=== PATIENT | male | born 1930 ===

== ENCOUNTER 2017-11-20 09:16 | Inpatient (IN) | payer MEDICARE, OTHER ==
[2017-11-20 11:04] LABS: BASO # 0.1 K/uL (0.0-0.2); BASO % 0.9 % (0.0-2.0); EOS # 0.1 K/uL (0.0-0.7); EOS % 0.8 % (0.0-4.0); HEMOGLOBIN 9.6 g/dL (12.0-18.0); LYMPH # 0.7 K/uL (1.0-4.3); LYMPH % 8.4 % (20.0-40.0); MEAN CELL VOLUME 88.1 fl (80.0-94.0); MEAN CORPUSCULAR HEMOGLOBIN 29.2 pg (27.0-31.0); MEAN CORPUSCULAR HGB CONC 33.1 g/dL (33.0-37.0); MONO # 0.6 K/uL (0.0-0.8); MONO % 6.7 % (0.0-10.0); NEUT % 83.2 % (50.0-75.0); PLATELET COUNT 465 K/uL (130-400); RBC 3.28 Mil/uL (4.40-5.90); RED CELL DISTRIBUTION WIDTH 14.1 % (11.5-14.5); WHITE BLOOD COUNT 8.4 K/uL (4.8-10.8)
[2017-11-20 11:11] LABS: INR 1.1 (0.9-1.2); PARTIAL THROMBOPLASTIN TIME 35.4 Seconds (25.6-37.1)
[2017-11-20 11:17] LABS: ALB/GLOB RATIO 0.9 (1.0-2.1); ALBUMIN 3.8 g/dL (3.5-5.0); ALT/SGPT 21 U/L (21-72); AST/SGOT 27 U/L (17-59); BLOOD UREA NITROGEN 31 mg/dl (9-20); CALCIUM 9.6 mg/dL (8.4-10.2); GFR AFRICAN-AMERICAN > 60; GFR NON-AFRICAN AMERICAN 58
--- NOTE | 2017-11-20 11:20 | ED PDOC ---
Lower Extremity Pain/Injury Time Seen by Provider: 11/20/17 09:42 Chief Complaint (Nursing): Lower Extremity Problem/Injury Chief Complaint (Provider): right foot pain History Per: Patient, Making Machine Catcher (Mahogany Velez) History/Exam Limitations: no limitations Onset/Duration Of Symptoms: Days (7+) Current Symptoms Are (Timing): Still Present Severity: Severe Additional Complaint(s): 87yo male presents to ED on recommendation of his foot care team Dr Taylor, concern for worsening RLE pain, possible gangrene foot. Denies fever, weakness. Arrives w RLE foot in bulky dressing. Uses wheelchair. Past Medical History Reviewed: Historical Data, Nursing Documentation, Vital Signs Vital Signs: Last Vital Signs Temp 97 F L 11/20/17 09:31 Pulse 92 H 11/20/17 09:31 Resp 20 11/20/17 09:31 BP 117/67 11/20/17 09:31 Pulse Ox 98 11/20/17 09:31 - Medical History PMH: Arthritis, CHF, Diabetes, HTN, Hypercholesterolemia, Pneumonia Denies: HIV, Chronic Kidney Disease - Surgical History Other surgeries: b/l foot surgery/ L MTA, perforated intestine - Family History Family History: States: Diabetes - Living Arrangements Living Arrangements: With Family - Social History Current smoker - smoking cessation education provided: No - Immunization History Hx Tetanus Toxoid Vaccination: No Hx Influenza Vaccination: Yes Hx Pneumococcal Vaccination: No - Home Medications Home Medications: Ambulatory Orders Medication Instructions Recorded Clopidogrel [Plavix] 75 mg PO DAILY 11/20/17 Ergocalciferol (Vitamin D2) 50,000 unit PO Q7D 11/20/17 [Vitamin D2] Losartan [Cozaar] 50 mg PO DAILY 11/20/17 SITagliptin [Januvia] 50 mg PO DAILY 11/20/17 amLODIPine [Norvasc] 10 mg PO DAILY 11/20/17 traMADol [Ultram] 50 mg PO Q6 PRN 11/20/17 - Allergies Allergies/Adverse Reactions: Allergies Allergy/AdvReac Type Severity Reaction Status Date / Time No Known Allergies Allergy Verified 11/20/17 09:30 Review of Systems ROS Statement: Except As Marked, All Systems Reviewed And Found Negative Constitutional: Negative for: Fever Cardiovascular: Negative for: Chest Pain Respiratory: Negative for: Cough Gastrointestinal: Negative for: Nausea Genitourinary Male: Negative for: Dysuria Musculoskeletal: Positive for: Leg Pain, Foot Pain. Negative for: Neck Pain, Hand Pain Skin: Negative for: Rash, Lesions Neurological: Negative for: Weakness Physical Exam - Reviewed Nursing Documentation Reviewed: Yes Vital Signs Reviewed: Yes - Physical Exam Appears: Positive for: Well, Non-toxic, No Acute Distress Head Exam: Positive for: ATRAUMATIC, NORMAL INSPECTION, NORMOCEPHALIC Skin: Positive for: Normal Color, Warm, DRY Eye Exam: Positive for: EOMI, Normal appearance, PERRL ENT: Positive for: Normal ENT Inspection Neck: Positive for: Normal, Painless ROM Cardiovascular/Chest: Positive for: Regular Rate, Rhythm Respiratory: Positive for: CNT, Normal Breath Sounds Gastrointestinal/Abdominal: Positive for: Soft Back: Positive for: Normal Inspection Extremity: Positive for: Other (L foot TMA; R foot bulky dressing, R foot necrotic black distal margins cool) Neurologic/Psych: Positive for: Alert, Oriented - Laboratory Results Result Diagrams: 11/20/17 11:00 11/20/17 11:00 - ECG O2 Sat by Pulse Oximetry: 98 Medical Decision Making Medical Decision Making: workup for gangrenous foot initiated podiatry consulted XRay and labs obtained EKG performed and interpreted by ct labs clinically unremarkable per podiatry admit for likely OR/TMA PMD Dr Fitzgerald, admit hospitalist Dr Petit aware 1230p Disposition - Clinical Impression Clinical Impression: Gangrene of foot - Patient ED Disposition Is Patient to be Admitted: No Counseled Patient/Family Regarding: Studies Performed, Diagnosis, Need For Followup - Disposition Disposition: Routine/Home Disposition Time: 12:01 Condition: STABLE - Pt Status Changed To: Hospital Disposition Of: Inpatient - Admit Certification Admit to Inpatient:: After my assessment, the patient will require hospitalization for at least two midnights. This is because of the severity of symptoms shown, intensity of services needed, and/or the medical risk in this patient being treated as an outpatient. - POA Present On Arrival: None
[2017-11-20 12:08] LABS: EOSINOPHIL 2 % (0-7); LYMPHOCYTE 4 % (20-50); MONOCYTE 5 % (0-10); NEUTROPHIL 89 % (42-75); TOTAL CELLS COUNTED 100
[2017-11-20 12:10] LABS: PLATELET ESTIMATE INCREASED (NORMAL)
[2017-11-20 12:11] LABS: HYPOCHROMIC SLIGHT
[2017-11-20 12:20] LABS: OVALOCYTES SLIGHT; TEARDROP CELLS SLIGHT
[2017-11-20] MEDS ORDERED: Povidone Iodine Topical 10% Sol ONE (12:22)
--- NOTE | 2017-11-20 12:49 | CP.PCM.CON ---
History of Present Illness - History of Present Illness History of Present Illness: Podiatry Consult note: Dr. Nye 87 year old male patient with PMHx of HTN, HLD, DM was seen and evaluated at bedside in ED s/p right foot partial 1st ray and 2nd digit amputation. Patient is accompanied with his at bedside. Patient is well known to the podiatry service. Patient reports that he was seen by Dr. Nye this morning who sent him to the ED today. Reports that he has a lot of pain on the forefoot. Patient reports that he has been keeping the dressing on as advised. Patient denies of having any recent F/N/V/C/SOB/CP/headache. Denies of any other pedal complains at this time. 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 Retired; Denies hx of tobacco, ETOH and illicit drugs use Review of Systems - Constitutional Constitutional: As Per HPI Past Patient History - Infectious Disease Hx of Infectious Diseases: None - Tetanus Immunizations Tetanus Immunization: Unknown - Past Medical History & Family History Past Medical History?: Yes - Past Social History Smoking Status: Former Smoker - CARDIAC Hx Congestive Heart Failure: Yes Hx Hypercholesterolemia: Yes Hx Hypertension: Yes - PULMONARY Hx Pneumonia: Yes - NEUROLOGICAL Hx Neurological Disorder: No - HEENT Hx HEENT Problems: No - RENAL Hx Chronic Kidney Disease: No - ENDOCRINE/METABOLIC Hx Diabetes Mellitus Type 2: Yes - HEMATOLOGICAL/ONCOLOGICAL Hx Human Immunodeficiency Virus (HIV): No - INTEGUMENTARY Hx Dermatological Problems: No - MUSCULOSKELETAL/RHEUMATOLOGICAL Hx Arthritis: Yes - GASTROINTESTINAL Hx Gastrointestinal Disorders: Yes Other/Comment: perforated viscus s/p exploratory lap with small bowel resection 10/28/14 - GENITOURINARY/GYNECOLOGICAL Hx Genitourinary Disorders: No - PSYCHIATRIC Hx Psychophysiologic Disorder: No Hx Substance Use: No - SURGICAL HISTORY Hx Surgeries: Yes Hx Amputation: Yes (TMA left foot) Other/Comment: s/p exploratory lap small bowel resection - ANESTHESIA Hx Anesthesia: Yes Hx Anesthesia Reactions: No Hx Malignant Hyperthermia: No Meds Allergies/Adverse Reactions: Allergies Allergy/AdvReac Type Severity Reaction Status Date / Time No Known Allergies Allergy Verified 11/20/17 09:30 Physical Exam - Constitutional Appears: Well, Non-toxic, No Acute Distress - Extremities Exam Additional comments: Right LE focused exam Dressing appears clean/dry/intact with no strikethrough noted. Vasc: DP/PT pulses non palpable. Temp gradient cool to cool from proximal to distal, Cap refill time to the digits as well as plantar forefoot and midfoot appears sluggish and delayed > 3 sec. Mild forefoot pedal edema noted accompanied by minimal hyperemic erythema extending to the midfoot Derm: Incision noted to distal medial aspect of right foot shows dehiscence diffusely with sutures intact on the proximal end, maceration surrounding the surgical site with hyperpigmented 3rd digit, Wound base appears full thickness fibrotic with necrotic changes, No fluctuance, no purulence, mild serous drainage, faint malodor noted Neuro: Protective sensation grossly diminished Ortho: moderate tenderness to palpation along surgical site. s/p right hallux amputation with metatarsal head resection, and partial 2nd digit amputation - Neurological Exam Neurological exam: Alert, Oriented x3 - Psychiatric Exam Psychiatric exam: Normal Affect, Normal Mood Results - Vital Signs Recent Vital Signs: Last Vital Signs Temp 97 F L 11/20/17 09:31 Pulse 92 H 11/20/17 09:31 Resp 20 11/20/17 09:31 BP 117/67 11/20/17 09:31 Pulse Ox 98 11/20/17 11:21 - Labs Result Diagrams: 11/20/17 11:00 11/20/17 11:00 Labs: Laboratory Results - last 24 hr 11/20/17 11/20/17 11/20/17 11:00 11:00 11:00 WBC 8.4 RBC 3.28 L Hgb 9.6 L Hct 28.9 L MCV 88.1 D MCH 29.2 MCHC 33.1 RDW 14.1 Plt Count 465 H MPV 8.0 Neut % (Auto) 83.2 H Lymph % (Auto) 8.4 L Mathews % (Auto) 6.7 Eos % (Auto) 0.8 Baso % (Auto) 0.9 Neut # (Auto) 7.0 Lymph # (Auto) 0.7 L Mathews # (Auto) 0.6 Eos # (Auto) 0.1 Baso # (Auto) 0.1 Neutrophils % (Manual) 89 H Lymphocytes % (Manual) 4 L Monocytes % (Manual) 5 Eosinophils % (Manual) 2 Platelet Estimate Increased H Hypochromasia (manual) Slight Tear Drop Cells Slight Ovalocytes Slight PT 12.0 INR 1.1 APTT 35.4 Sodium 141 Potassium 5.2 H Chloride 103 Carbon Dioxide 24 Anion Gap 19 BUN 31 H Creatinine 1.2 Est GFR ( Amer) > 60 Est GFR (Non-Af Amer) 58 Random Glucose 157 H Calcium 9.6 Total Bilirubin 0.4 AST 27 ALT 21 Alkaline Phosphatase 104 Troponin I < 0.0120 Total Protein 8.1 Albumin 3.8 Globulin 4.3 H Albumin/Globulin Ratio 0.9 L Assessment & Plan - Assessment and Plan (Free Text) Assessment: 87 year old male with HTN, DM, HLD was evaluated for right forefoot gangrenous changes Plan: Patient seen and evaluated Discussed plan with attending Dr. Nye Labs, vitals and charts reviewed - afebrile WBC @ 8.4 X-rays of the right foot ordered/reviewed - no soft tissue emphysema, no acute changes showing OM Wound cleaned with saline and dressing applied using betadine, 4x4 and Kerlix Patient will be admitted to the floors - Podiatry plans for Transmetatarsal amputation at this time Vascular consult - Dr. Jiménez ID consult - Dr. Buck Post op shoe ordered - Remain weightbearing to the heel in a surgical shoe Multipodus boots - to be worn at all times while in bed Thank you for the podiatry consult and allowing to take part in patient care Podiatry will follow patient while in-house - Date & Time Date: 11/20/17 Time: 13:04
--- NOTE | 2017-11-20 13:16 | CP.PCM.CON ---
History of Present Illness - History of Present Illness History of Present Illness: 87 year old male patient with PMHx of HTN, HLD, DM was seen and evaluated at bedside in ED s/p right foot partial 1st ray and 2nd digit amputation. Referred for ID eval for antibiotic management Reports that he has a lot of pain on the forefoot. Patient reports that he has been keeping the dressing on as advised. Patient denies of having any recent F/N /V/C/SOB/CP/headache. Denies of any other pedal complains at this time. 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 Retired; Denies hx of tobacco, ETOH and illicit drugs use Review of Systems - Review of Systems All systems: reviewed and no additional remarkable complaints except Past Patient History - Infectious Disease Hx of Infectious Diseases: None - Tetanus Immunizations Tetanus Immunization: Unknown - Past Medical History & Family History Past Medical History?: Yes - Past Social History Smoking Status: Former Smoker - CARDIAC Hx Congestive Heart Failure: Yes Hx Hypercholesterolemia: Yes Hx Hypertension: Yes - PULMONARY Hx Pneumonia: Yes - NEUROLOGICAL Hx Neurological Disorder: No - HEENT Hx HEENT Problems: No - RENAL Hx Chronic Kidney Disease: No - ENDOCRINE/METABOLIC Hx Diabetes Mellitus Type 2: Yes - HEMATOLOGICAL/ONCOLOGICAL Hx Human Immunodeficiency Virus (HIV): No - INTEGUMENTARY Hx Dermatological Problems: No - MUSCULOSKELETAL/RHEUMATOLOGICAL Hx Arthritis: Yes - GASTROINTESTINAL Hx Gastrointestinal Disorders: Yes Other/Comment: perforated viscus s/p exploratory lap with small bowel resection 10/28/14 - GENITOURINARY/GYNECOLOGICAL Hx Genitourinary Disorders: No - PSYCHIATRIC Hx Psychophysiologic Disorder: No Hx Substance Use: No - SURGICAL HISTORY Hx Surgeries: Yes Hx Amputation: Yes (TMA left foot) Other/Comment: s/p exploratory lap small bowel resection - ANESTHESIA Hx Anesthesia: Yes Hx Anesthesia Reactions: No Hx Malignant Hyperthermia: No Meds Allergies/Adverse Reactions: Allergies Allergy/AdvReac Type Severity Reaction Status Date / Time No Known Allergies Allergy Verified 11/20/17 09:30 Physical Exam - Constitutional Appears: Chronically Ill - Head Exam Head Exam: ATRAUMATIC, NORMOCEPHALIC - Eye Exam Eye Exam: PERRL - ENT Exam ENT Exam: Mucous Membranes Dry, Normal External Ear Exam - Neck Exam Neck exam: Negative for: Lymphadenopathy - Respiratory Exam Respiratory Exam: Decreased Breath Sounds - Cardiovascular Exam Cardiovascular Exam: REGULAR RHYTHM - GI/Abdominal Exam GI & Abdominal Exam: Diminished Bowel Sounds, Soft. absent: Tenderness - Rectal Exam Rectal Exam: Deferred - Exam Exam: NORMAL INSPECTION - Extremities Exam Extremities exam: Negative for: pedal edema Additional comments: right 1st and second amp site with dehissence and necrosis some malor from plantar aspect weak pulse - Back Exam Back exam: absent: CVA tenderness (L), CVA tenderness (R) - Neurological Exam Neurological exam: Alert, CN II-XII Intact, Oriented x3, Reflexes Normal - Psychiatric Exam Psychiatric exam: Normal Mood - Skin Skin Exam: Dry Results - Vital Signs Recent Vital Signs: Last Vital Signs Temp 97 F L 11/20/17 09:31 Pulse 92 H 11/20/17 09:31 Resp 20 11/20/17 09:31 BP 117/67 11/20/17 09:31 Pulse Ox 98 11/20/17 13:14 - Labs Result Diagrams: 11/21/17 06:00 11/21/17 06:00 Labs: Laboratory Results - last 24 hr 11/20/17 11/20/17 11/20/17 11:00 11:00 11:00 WBC 8.4 RBC 3.28 L Hgb 9.6 L Hct 28.9 L MCV 88.1 D MCH 29.2 MCHC 33.1 RDW 14.1 Plt Count 465 H MPV 8.0 Neut % (Auto) 83.2 H Lymph % (Auto) 8.4 L Lamar % (Auto) 6.7 Eos % (Auto) 0.8 Baso % (Auto) 0.9 Neut # (Auto) 7.0 Lymph # (Auto) 0.7 L Lamar # (Auto) 0.6 Eos # (Auto) 0.1 Baso # (Auto) 0.1 Neutrophils % (Manual) 89 H Lymphocytes % (Manual) 4 L Monocytes % (Manual) 5 Eosinophils % (Manual) 2 Platelet Estimate Increased H Hypochromasia (manual) Slight Tear Drop Cells Slight Ovalocytes Slight PT 12.0 INR 1.1 APTT 35.4 Sodium 141 Potassium 5.2 H Chloride 103 Carbon Dioxide 24 Anion Gap 19 BUN 31 H Creatinine 1.2 Est GFR ( Amer) > 60 Est GFR (Non-Af Amer) 58 Random Glucose 157 H Calcium 9.6 Total Bilirubin 0.4 AST 27 ALT 21 Alkaline Phosphatase 104 Troponin I < 0.0120 Total Protein 8.1 Albumin 3.8 Globulin 4.3 H Albumin/Globulin Ratio 0.9 L Assessment & Plan (1) Gangrene of foot Status: Acute (2) PVD (peripheral vascular disease) with claudication Status: Acute (3) KENNY (acute kidney injury) Status: Acute (4) Chronic osteomyelitis of right foot Status: Acute - Assessment and Plan (Free Text) Assessment: gangrene of right foot s/p amp of first 2 digits severe PVD cont iv rx vascular eval, antibiotics options limited
--- NOTE | 2017-11-20 13:27 | CP.PCM.HP ---
History of Present Illness - History of Present Illness History of Present Illness: cc: foot pain 87 M PMH HTN, HLD, DM, b/l toe amputations, presented to the ED from Dr. Taylor's office for mod to severe worsening sharp R foot pain. Podiatry to take patient for transmetatarsal amputation for possible gangrenous changes. Vascular and ID consults obtained per Podiatry. Pt mildly hyperkalemic, and azotemic. Will hydrate patient gently. HD stable NAD. ROS: per HPI all other systems reviewed and neg PMD: Dr. 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 Retired; Denies hx of tobacco, ETOH and illicit drugs use Medications: Unknown dose for Losartan, plavix 75mg po daily, medications for HLD and diabetes (patient and could not remember names) Allergies: NKDA Present on Admission - Present on Admission Any Indicators Present on Admission: No Past Patient History - Infectious Disease Hx of Infectious Diseases: None - Tetanus Immunizations Tetanus Immunization: Unknown - Past Medical History & Family History Past Medical History?: Yes - Past Social History Smoking Status: Former Smoker - CARDIAC Hx Congestive Heart Failure: Yes Hx Hypercholesterolemia: Yes Hx Hypertension: Yes - PULMONARY Hx Pneumonia: Yes - NEUROLOGICAL Hx Neurological Disorder: No - HEENT Hx HEENT Problems: No - RENAL Hx Chronic Kidney Disease: No - ENDOCRINE/METABOLIC Hx Diabetes Mellitus Type 2: Yes - HEMATOLOGICAL/ONCOLOGICAL Hx Human Immunodeficiency Virus (HIV): No - INTEGUMENTARY Hx Dermatological Problems: No - MUSCULOSKELETAL/RHEUMATOLOGICAL Hx Arthritis: Yes - GASTROINTESTINAL Hx Gastrointestinal Disorders: Yes Other/Comment: perforated viscus s/p exploratory lap with small bowel resection 10/28/14 - GENITOURINARY/GYNECOLOGICAL Hx Genitourinary Disorders: No - PSYCHIATRIC Hx Psychophysiologic Disorder: No Hx Substance Use: No - SURGICAL HISTORY Hx Surgeries: Yes Hx Amputation: Yes (TMA left foot) Other/Comment: s/p exploratory lap small bowel resection - ANESTHESIA Hx Anesthesia: Yes Hx Anesthesia Reactions: No Hx Malignant Hyperthermia: No Meds Allergies/Adverse Reactions: Allergies Allergy/AdvReac Type Severity Reaction Status Date / Time No Known Allergies Allergy Verified 11/20/17 09:30 Physical Exam - Constitutional Additional comments: Vitals Reviewed GEN: WDWN, alert, cooperative HEENT: NCAT, PERRL, EOMI HEART: RRR, +S1S2, NO MRG LUNG: CTAB, NO WRR ABD: soft, NT, ND, No HSM, No masses EXT: normal pedal pulses, normal capillary refill, bandages intact R foot NEURO: awake, alert, no focal deficits SKIN: warm, dry PSYCH: normal mood, normal affect Results - Vital Signs Recent Vital Signs: Last Vital Signs Temp 97 F L 11/20/17 09:31 Pulse 92 H 11/20/17 09:31 Resp 20 11/20/17 09:31 BP 117/67 11/20/17 09:31 Pulse Ox 98 11/20/17 13:16 - Labs Result Diagrams: 11/20/17 11:00 11/20/17 11:00 Labs: Laboratory Results - last 24 hr 11/20/17 11/20/17 11/20/17 11:00 11:00 11:00 WBC 8.4 RBC 3.28 L Hgb 9.6 L Hct 28.9 L MCV 88.1 D MCH 29.2 MCHC 33.1 RDW 14.1 Plt Count 465 H MPV 8.0 Neut % (Auto) 83.2 H Lymph % (Auto) 8.4 L Forest % (Auto) 6.7 Eos % (Auto) 0.8 Baso % (Auto) 0.9 Neut # (Auto) 7.0 Lymph # (Auto) 0.7 L Forest # (Auto) 0.6 Eos # (Auto) 0.1 Baso # (Auto) 0.1 Neutrophils % (Manual) 89 H Lymphocytes % (Manual) 4 L Monocytes % (Manual) 5 Eosinophils % (Manual) 2 Platelet Estimate Increased H Hypochromasia (manual) Slight Tear Drop Cells Slight Ovalocytes Slight PT 12.0 INR 1.1 APTT 35.4 Sodium 141 Potassium 5.2 H Chloride 103 Carbon Dioxide 24 Anion Gap 19 BUN 31 H Creatinine 1.2 Est GFR ( Amer) > 60 Est GFR (Non-Af Amer) 58 Random Glucose 157 H Calcium 9.6 Total Bilirubin 0.4 AST 27 ALT 21 Alkaline Phosphatase 104 Troponin I < 0.0120 Total Protein 8.1 Albumin 3.8 Globulin 4.3 H Albumin/Globulin Ratio 0.9 L Assessment & Plan - Assessment and Plan (Free Text) Plan: 87 M PMH HTN, HLD, DM, b/l toe amputations, presented to the ED from Dr. Taylor's office for mod to severe worsening sharp R foot pain. Podiatry to take patient for transmetatarsal amputation for possible gangrenous changes. Vascular and ID consults obtained per Podiatry. Pt mildly hyperkalemic, and azotemic. Will hydrate patient gently. HD stable NAD. Gangrenous Foot? - Podiatry consult with Dr. Taylor, who is patient's primary Presidential Support Specialist - pain control - ID consult Dr. Buck per Podiatry request, appreciated - Vascular consult Dr. Jiménez per Podiatry request, appreciated - holding patient's Plavix - NPO after MN - maint fluids with NS as patient is dry. Will adjust to D5 1/2 NS + 20 KCl once azotemia resolves. Hyperkalemia - 5.2, will hydrate as patient is Azotemic - recheck in AM Azotemia, dehydration - hydrate gently with NS - monitor BUN and renal fxn Hypertension - continue Amlodipine and Losartan DM - continue Januvia, accuchecks and ISS
[2017-11-20] MEDS ORDERED: Sodium Chloride 0.9% 1,000 ML IV SCH (13:30)
[2017-11-20] MEDS: Ergocalciferol 50,000 Intl Units Cap PO SCH (15:22)
[2017-11-20 15:56] LABS: SQUAMOUS EPITHIAL < 1 /hpf (0-5); URINE BILIRUBIN NEGATIVE (NEGATIVE); URINE BLOOD NEGATIVE (NEGATIVE); URINE CLARITY CLEAR (Clear); URINE COLOR YELLOW (YELLOW); URINE GLUCOSE (UA) NEG (Normal); URINE LEUKOCYTE ESTERASE NEG Leu/uL (Negative); URINE PROTEIN 30 mg/dL (NEGATIVE); URINE UROBILINOGEN 0.2-1.0 mg/dL (0.2-1.0)
--- NOTE | 2017-11-20 16:36 | RAD ---
PROCEDURE: Right foot dated 11/20/2017. HISTORY: Right foot pain. COMPARISON: No prior study available for comparison. FINDINGS: BONES: Patient is status post amputation at the level of the mid-proximal right 1st metatarsal and distal on phalanges. There also has been amputation of the entire right 2nd toe as well. The bone margins are sharp with no definitive evidence to suggest on destructive changes however the possibility of early osteomyelitis cannot be completely excluded and if there is any concern recommend followup MRI. The soft tissues of the stump appear grossly unremarkable without evidence of subcutaneous emphysema. The remaining osseous structures also appear intact so far as can be seen. Vascular calcifications present. JOINTS: As above. SOFT TISSUES: As above. OTHER FINDINGS: None. IMPRESSION: Amputation changes of the 1st ray at the level of the mid/proximal right 1st metatarsal. Also has been amputation of the entire the 2nd toe. No evidence to suggest osteomyelitis however if there is any concern for early osteomyelitis which cannot be excluded on this exam, recommend followup MRI. The soft tissues of the stump appear unremarkable without evidence of subcutaneous air Vascular calcifications are present.
--- NOTE | 2017-11-20 20:00 | CARD ---
APPROVED REPORT EKG Measurement Heart [id number] <Conclusion> Normal sinus rhythm Normal ECG
[2017-11-20] MEDS ORDERED: Sodium Chloride 0.45% 1,000 ML IV SCH (22:00)
[2017-11-20] MEDS: Insulin Lispro (humaLOG) 100 Units/ml Inj SC SCH (22:47)
[2017-11-21] MEDS: Piperacillin/Tazobact 3.375 GM in Sodium Chloride 0.9% 100 ML IVPB SCH ×4 (00:04→16:42)
[2017-11-21] MEDS: Insulin Lispro (humaLOG) 100 Units/ml Inj SC SCH ×4 (06:33→22:30)
[2017-11-21 06:41] LABS: HEMOGLOBIN 10.2 g/dL (12.0-18.0); MEAN CELL VOLUME 88.4 fl (80.0-94.0); MEAN CORPUSCULAR HEMOGLOBIN 28.8 pg (27.0-31.0); MEAN CORPUSCULAR HGB CONC 32.6 g/dL (33.0-37.0); RBC 3.55 Mil/uL (4.40-5.90); RED CELL DISTRIBUTION WIDTH 14.6 % (11.5-14.5); WHITE BLOOD COUNT 8.9 K/uL (4.8-10.8)
[2017-11-21 07:11] LABS: BLOOD UREA NITROGEN 23 mg/dl (9-20); CALCIUM 9.4 mg/dL (8.4-10.2); GFR AFRICAN-AMERICAN > 60; GFR NON-AFRICAN AMERICAN > 60
--- NOTE | 2017-11-21 08:00 | CP.PCM.PN ---
Subjective - Date & Time of Evaluation Date of Evaluation: 11/21/17 Time of Evaluation: 08:00 - Subjective Subjective: Podiatry Progress note: Dr. Nye 87 year old male patient with PMHx of HTN, HLD, DM was seen and evaluated for right forefoot gangrene. Patient is accompanied with his at bedside. Patient is AAOx3 and is in NAD. Reports of pain when someone touches the foot. Reports that he has not eaten anything since yesterday and is hungry. Denies of having any recent F/N/V/C/SOB/CP/headache. No new pedal complains at this time. Objective - Vital Signs/Intake and Output Vital Signs (last 24 hours): Temp Pulse Resp BP Pulse Ox 98.6 F 100 H 18 145/70 97 11/21/17 00:32 11/21/17 00:32 11/21/17 00:32 11/21/17 00:32 11/21/17 00:32 - Medications Medications: Current Medications Amlodipine Besylate (Norvasc) 10 mg PO DAILY [facility] Ergocalciferol (Drisdol 50,000 Intl Units Cap) 1 cap PO Q7D [facility] Last Admin: 11/20/17 15:22 Dose: 1 cap Vancomycin HCl 1 gm/ Sodium (Chloride) 250 mls @ 166.667 mls/hr IVPB Q12H [facility] PRN Reason: Protocol Last Admin: 11/21/17 01:43 Dose: 166.667 mls/hr Piperacillin Sod/Tazobactam (Sod 3.375 gm/ Sodium Chloride) 100 mls @ 100 mls/ hr IVPB Q8 [facility] PRN Reason: Protocol Last Admin: 11/21/17 00:04 Dose: 100 mls/hr Sodium Chloride (Sodium Chloride 0.45%) 1,000 mls @ 75 mls/hr IV .[id number] [facility] Stop: 11/21/17 11:19 Last Admin: 11/20/17 22:04 Dose: 75 mls/hr Insulin Human Lispro (Humalog) 0 units SC ACHS [facility] PRN Reason: Protocol Last Admin: 11/21/17 06:33 Dose: Not Given Losartan Potassium (Cozaar) 50 mg PO DAILY [facility] Sitagliptin Phosphate (Januvia) 50 mg PO DAILY [facility] Tramadol HCl (Ultram) 50 mg PO Q6 PRN PRN Reason: Pain, severe (8-10) - Labs Labs: 11/21/17 06:00 11/21/17 06:00 PT 12.0 Seconds (9.8-13.1) 11/20/17 11:00 INR 1.1 (0.9-1.2) 11/20/17 11:00 APTT 35.4 Seconds (25.6-37.1) 11/20/17 11:00 - Constitutional Appears: Well, Non-toxic, No Acute Distress - Extremities Exam Additional comments: Right LE focused exam No dressing present at the time of the visit Vasc: DP/PT pulses non palpable. Temp gradient cool to cool from proximal to distal, Cap refill time to the digits as well as plantar forefoot and midfoot appears sluggish and delayed > 3 sec. Mild forefoot pedal edema noted accompanied by minimal hyperemic erythema extending to the midfoot Derm: Previous surgical site noted to distal medial aspect of right foot which shows full thickness necrosis extending to 3rd digit with hyperpigmented changes , surgical sutures observed at the proximal end of the wound, Wound base appears fully necrotic and dry with no balaji wound maceration, No fluctuance, no purulence, no active drainage, faint malodor noted Neuro: Protective sensation grossly diminished Ortho: moderate tenderness to palpation along surgical site. 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 Nye Labs, vitals and charts reviewed - afebrile WBC @ 8.9 X-rays of the right foot ordered/reviewed - no soft tissue emphysema, no acute changes showing OM Wound cleaned with saline and dressing applied using betadine, 4x4 and Kerlix Vascular consult - Dr. Jiménez; recs appreciated - CTA today Podiatry plans Transmetatarsal amputation tentatively Monday Morning - will follow Vascular recs ID consult - Dr. Buck; recs appreciated - Continue IV zosyn and Vanco Wound cx - pending Post op shoe ordered - Remain weightbearing to the heel in a surgical shoe Multipodus boots - to be worn at all times while in bed Podiatry will follow patient while in-house
--- NOTE | 2017-11-21 10:27 | CP.PCM.CON ---
History of Present Illness - History of Present Illness History of Present Illness: Consultation for evaluation of PVOD HPI: 87 year old male with hx of HTN, DM, PVD s/p recent revascularizatoin done in by presents with worsening gangrene and pain of RLE. According to patient his symptoms started about a month back when he started having discomfort and paresthesias in his lower extremity. Review of Systems - Review of Systems Systems not reviewed;Unavailable: Acuity of Condition - Constitutional Constitutional: As Per HPI - EENT Eyes: As Per HPI Ears: As Per HPI Nose/Mouth/Throat: As Per HPI - Cardiovascular Cardiovascular: As Per HPI - Respiratory Respiratory: As Per HPI - Gastrointestinal Gastrointestinal: As Per HPI - Genitourinary Genitourinary: As Per HPI - Reproductive: Male Reproductive:Male: As Per HPI - Musculoskeletal Musculoskeletal: As Per HPI - Integumentary Integumentary: As Per HPI - Neurological Neurological: As Per HPI - Psychiatric Psychiatric: As Per HPI - Endocrine Endocrine: As Per HPI - Hematologic/Lymphatic Hematologic: As Per HPI Past Patient History - Infectious Disease Hx of Infectious Diseases: None - Tetanus Immunizations Tetanus Immunization: Unknown - Past Medical History & Family History Past Medical History?: Yes - Past Social History Smoking Status: Former Smoker - CARDIAC Hx Cardiac Disorders: Yes Hx Congestive Heart Failure: Yes Hx Hypercholesterolemia: Yes Hx Hypertension: Yes - PULMONARY Hx Respiratory Disorders: Yes Hx Pneumonia: Yes - NEUROLOGICAL Hx Neurological Disorder: No - HEENT Hx HEENT Problems: No - RENAL Hx Chronic Kidney Disease: No - ENDOCRINE/METABOLIC Hx Endocrine Disorders: Yes Hx Diabetes Mellitus Type 2: Yes - HEMATOLOGICAL/ONCOLOGICAL Hx Blood Disorders: No Hx Human Immunodeficiency Virus (HIV): No - INTEGUMENTARY Hx Dermatological Problems: No - MUSCULOSKELETAL/RHEUMATOLOGICAL Hx Musculoskeletal Disorders: Yes Hx Arthritis: Yes Hx Falls: No - GASTROINTESTINAL Hx Gastrointestinal Disorders: Yes Other/Comment: perforated viscus s/p exploratory lap with small bowel resection 10/28/14 - GENITOURINARY/GYNECOLOGICAL Hx Genitourinary Disorders: No - PSYCHIATRIC Hx Psychophysiologic Disorder: No - SURGICAL HISTORY Hx Surgeries: Yes Hx Amputation: Yes (TMA left foot) Other/Comment: s/p exploratory lap small bowel resection - ANESTHESIA Hx Anesthesia: Yes Hx Anesthesia Reactions: No Hx Malignant Hyperthermia: No Meds Allergies/Adverse Reactions: Allergies Allergy/AdvReac Type Severity Reaction Status Date / Time No Known Allergies Allergy Verified 11/20/17 09:30 - Medications Medications: Current Medications Amlodipine Besylate (Norvasc) 10 mg PO DAILY [facility] Last Admin: 11/21/17 08:51 Dose: Not Given Ergocalciferol (Drisdol 50,000 Intl Units Cap) 1 cap PO Q7D [facility] Last Admin: 11/20/17 15:22 Dose: 1 cap Vancomycin HCl 1 gm/ Sodium (Chloride) 250 mls @ 166.667 mls/hr IVPB Q12H [facility] PRN Reason: Protocol Last Admin: 11/21/17 01:43 Dose: 166.667 mls/hr Piperacillin Sod/Tazobactam (Sod 3.375 gm/ Sodium Chloride) 100 mls @ 100 mls/ hr IVPB Q8 [facility] PRN Reason: Protocol Last Admin: 11/21/17 08:55 Dose: 100 mls/hr Sodium Chloride (Sodium Chloride 0.45%) 1,000 mls @ 75 mls/hr IV .[id number] [facility] Stop: 11/21/17 11:19 Last Admin: 11/20/17 22:04 Dose: 75 mls/hr Insulin Human Lispro (Humalog) 0 units SC ACHS [facility] PRN Reason: Protocol Last Admin: 11/21/17 06:33 Dose: Not Given Losartan Potassium (Cozaar) 50 mg PO DAILY [facility] Last Admin: 11/21/17 08:51 Dose: Not Given Sitagliptin Phosphate (Januvia) 50 mg PO DAILY [facility] Last Admin: 11/21/17 08:51 Dose: Not Given Tramadol HCl (Ultram) 50 mg PO Q6 PRN PRN Reason: Pain, severe (8-10) Physical Exam - Constitutional Appears: Well - Head Exam Head Exam: ATRAUMATIC, NORMAL INSPECTION, NORMOCEPHALIC - Eye Exam Eye Exam: EOMI, Normal appearance, PERRL Pupil Exam: NORMAL ACCOMODATION, PERRL - ENT Exam ENT Exam: Mucous Membranes Moist, Normal Exam - Neck Exam Neck exam: Positive for: Normal Inspection - Respiratory Exam Respiratory Exam: Clear to Auscultation Bilateral, NORMAL BREATHING PATTERN - Cardiovascular Exam Cardiovascular Exam: REGULAR RHYTHM - GI/Abdominal Exam GI & Abdominal Exam: Normal Bowel Sounds, Soft. absent: Tenderness - Extremities Exam Extremities exam: Positive for: normal inspection - Back Exam Back exam: NORMAL INSPECTION - Neurological Exam Neurological exam: Alert, CN II-XII Intact, Normal Gait, Oriented x3, Reflexes Normal - Psychiatric Exam Psychiatric exam: Normal Affect, Normal Mood - Skin Skin Exam: Dry, Intact, Normal Color, Warm Results - Vital Signs Recent Vital Signs: Last Vital Signs Temp 98.2 F 11/21/17 08:34 Pulse 93 H 11/21/17 08:34 Resp 20 11/21/17 08:34 BP 126/66 11/21/17 08:34 Pulse Ox 98 11/21/17 08:34 - Labs Result Diagrams: 11/22/17 08:12 11/23/17 06:05 Labs: Laboratory Results - last 24 hr 11/20/17 11/20/17 11/20/17 11:00 11:00 11:00 WBC 8.4 RBC 3.28 L Hgb 9.6 L Hct 28.9 L MCV 88.1 D MCH 29.2 MCHC 33.1 RDW 14.1 Plt Count 465 H MPV 8.0 Neut % (Auto) 83.2 H Lymph % (Auto) 8.4 L [place] % (Auto) 6.7 Eos % (Auto) 0.8 Baso % (Auto) 0.9 Neut # (Auto) 7.0 Lymph # (Auto) 0.7 L [place] # (Auto) 0.6 Eos # (Auto) 0.1 Baso # (Auto) 0.1 Neutrophils % (Manual) 89 H Lymphocytes % (Manual) 4 L Monocytes % (Manual) 5 Eosinophils % (Manual) 2 Platelet Estimate Increased H Hypochromasia (manual) Slight Tear Drop Cells Slight Ovalocytes Slight PT 12.0 INR 1.1 APTT 35.4 Sodium 141 Potassium 5.2 H Chloride 103 Carbon Dioxide 24 Anion Gap 19 BUN 31 H Creatinine 1.2 Est GFR ( Amer) > 60 Est GFR (Non-Af Amer) 58 POC Glucose (mg/dL) Random Glucose 157 H Calcium 9.6 Total Bilirubin 0.4 AST 27 ALT 21 Alkaline Phosphatase 104 Troponin I < 0.0120 Total Protein 8.1 Albumin 3.8 Globulin 4.3 H Albumin/Globulin Ratio 0.9 L Procalcitonin Urine Color Urine Clarity Urine pH Ur Specific [place] Urine Protein Urine Glucose (UA) Urine Ketones Urine Blood Urine Nitrate Urine Bilirubin Urine Urobilinogen Ur Leukocyte Esterase Urine RBC (Auto) Urine Microscopic WBC Ur Squamous Epith Cells 11/20/17 11/20/17 11/20/17 15:00 15:30 22:29 WBC RBC Hgb Hct MCV MCH MCHC RDW Plt Count MPV Neut % (Auto) Lymph % (Auto) [place] % (Auto) Eos % (Auto) Baso % (Auto) Neut # (Auto) Lymph # (Auto) [place] # (Auto) Eos # (Auto) Baso # (Auto) Neutrophils % (Manual) Lymphocytes % (Manual) Monocytes % (Manual) Eosinophils % (Manual) Platelet Estimate Hypochromasia (manual) Tear Drop Cells Ovalocytes PT INR APTT Sodium Potassium Chloride Carbon Dioxide Anion Gap BUN Creatinine Est GFR ( Amer) Est GFR (Non-Af Amer) POC Glucose (mg/dL) 112 H Random Glucose Calcium Total Bilirubin AST ALT Alkaline Phosphatase Troponin I Total Protein Albumin Globulin Albumin/Globulin Ratio Procalcitonin < 0.05 L Urine Color Yellow Urine Clarity Clear Urine pH 5.0 Ur Specific [place] 1.014 Urine Protein 30 Urine Glucose (UA) Neg Urine Ketones Negative Urine Blood Negative Urine Nitrate Negative Urine Bilirubin Negative Urine Urobilinogen 0.2-1.0 Ur Leukocyte Esterase Neg Urine RBC (Auto) 2 Urine Microscopic WBC < 1 Ur Squamous Epith Cells < 1 11/21/17 11/21/17 11/21/17 05:14 06:00 06:00 WBC 8.9 RBC 3.55 L Hgb 10.2 L Hct 31.4 L MCV 88.4 MCH 28.8 MCHC 32.6 L RDW 14.6 H Plt Count 456 H MPV Neut % (Auto) Lymph % (Auto) [place] % (Auto) Eos % (Auto) Baso % (Auto) Neut # (Auto) Lymph # (Auto) [place] # (Auto) Eos # (Auto) Baso # (Auto) Neutrophils % (Manual) Lymphocytes % (Manual) Monocytes % (Manual) Eosinophils % (Manual) Platelet Estimate Hypochromasia (manual) Tear Drop Cells Ovalocytes PT INR APTT Sodium 140 Potassium 4.7 Chloride 106 Carbon Dioxide 19 L Anion Gap 20 BUN 23 H Creatinine 1.0 Est GFR ( Amer) > 60 Est GFR (Non-Af Amer) > 60 POC Glucose (mg/dL) 92 Random Glucose 101 Calcium 9.4 Total Bilirubin AST ALT Alkaline Phosphatase Troponin I Total Protein Albumin Globulin Albumin/Globulin Ratio Procalcitonin Urine Color Urine Clarity Urine pH Ur Specific [place] Urine Protein Urine Glucose (UA) Urine Ketones Urine Blood Urine Nitrate Urine Bilirubin Urine Urobilinogen Ur Leukocyte Esterase Urine RBC (Auto) Urine Microscopic WBC Ur Squamous Epith Cells Assessment & Plan (1) Gangrene of foot Assessment and Plan: CT Angio LE with runoff asa, plavix statins acei cilostazol Status: Acute (2) PVD (peripheral vascular disease) with claudication Assessment and Plan: depending on results of CT Angio consider further evaluation and treatment Status: Acute (3) Gangrene of toe of right foot Status: Acute (4) HTN (hypertension) Status: Chronic (5) History of hyperlipidemia Status: Chronic
--- NOTE | 2017-11-21 11:03 | CP.PCM.PN ---
Subjective - Date & Time of Evaluation Date of Evaluation: 11/21/17 Time of Evaluation: 07:00 - Subjective Subjective: awake alert afeb c/o pain Objective - Vital Signs/Intake and Output Vital Signs (last 24 hours): Temp Pulse Resp BP Pulse Ox 98.2 F 93 H 20 126/66 98 11/21/17 08:34 11/21/17 08:34 11/21/17 08:34 11/21/17 08:34 11/21/17 08:34 - Medications Medications: Current Medications Amlodipine Besylate (Norvasc) 10 mg PO DAILY [facility] Last Admin: 11/21/17 08:51 Dose: Not Given Ergocalciferol (Drisdol 50,000 Intl Units Cap) 1 cap PO Q7D [facility] Last Admin: 11/20/17 15:22 Dose: 1 cap Vancomycin HCl 1 gm/ Sodium (Chloride) 250 mls @ 166.667 mls/hr IVPB Q12H [facility] PRN Reason: Protocol Last Admin: 11/21/17 01:43 Dose: 166.667 mls/hr Piperacillin Sod/Tazobactam (Sod 3.375 gm/ Sodium Chloride) 100 mls @ 100 mls/ hr IVPB Q8 [facility] PRN Reason: Protocol Last Admin: 11/21/17 08:55 Dose: 100 mls/hr Sodium Chloride (Sodium Chloride 0.45%) 1,000 mls @ 75 mls/hr IV .[id number] [facility] Stop: 11/21/17 11:19 Last Admin: 11/20/17 22:04 Dose: 75 mls/hr Insulin Human Lispro (Humalog) 0 units SC ACHS [facility] PRN Reason: Protocol Last Admin: 11/21/17 06:33 Dose: Not Given Losartan Potassium (Cozaar) 50 mg PO DAILY [facility] Last Admin: 11/21/17 08:51 Dose: Not Given Sitagliptin Phosphate (Januvia) 50 mg PO DAILY [facility] Last Admin: 11/21/17 08:51 Dose: Not Given Tramadol HCl (Ultram) 50 mg PO Q6 PRN PRN Reason: Pain, severe (8-10) - Labs Labs: 11/21/17 06:00 11/21/17 06:00 PT 12.0 Seconds (9.8-13.1) 11/20/17 11:00 INR 1.1 (0.9-1.2) 11/20/17 11:00 APTT 35.4 Seconds (25.6-37.1) 11/20/17 11:00 - Constitutional Appears: Non-toxic - Head Exam Head Exam: NORMOCEPHALIC - Eye Exam Eye Exam: Normal appearance - ENT Exam ENT Exam: Mucous Membranes Dry - Neck Exam Neck Exam: absent: Lymphadenopathy - Respiratory Exam Respiratory Exam: Decreased Breath Sounds - Cardiovascular Exam Cardiovascular Exam: REGULAR RHYTHM - GI/Abdominal Exam GI & Abdominal Exam: Distended - Rectal Exam Rectal Exam: Deferred - Exam Exam: NORMAL INSPECTION - Extremities Exam Extremities Exam: Pedal Edema, Tenderness - Back Exam Back Exam: absent: CVA tenderness (L), CVA tenderness (R) - Neurological Exam Neurological Exam: Alert, Awake, CN II-XII Intact Neuro motor strength exam: Left Upper Extremity: 3, Right Upper Extremity: 3, Left Lower Extremity: 3, Right Lower Extremity: 3 - Psychiatric Exam Psychiatric exam: Depressed - Skin Skin Exam: Dry Assessment and Plan (1) Gangrene of foot Status: Acute (2) PVD (peripheral vascular disease) with claudication Status: Acute (3) KENNY (acute kidney injury) Status: Acute (4) Chronic osteomyelitis of right foot Status: Acute
[2017-11-21] MEDS ORDERED: Sodium Chloride 0.9% 100 ML ONE (12:28)
[2017-11-21] MEDS ORDERED: Iodixanol 320 MG/ML 100 ML BOTTLE IV ONE (12:28)
[2017-11-21] MEDS ORDERED: Povidone Iodine Topical 10% Sol ONE (13:41)
--- NOTE | 2017-11-21 13:58 | CT ---
PROCEDURE: CT Angiography Abdomen, Pelvis and Lower Extremity with Contrast HISTORY: LLE Gangrene COMPARISON: None. TECHNIQUE: Technique: CT angiography of the abdomen, pelvis and bilateral lower extremities performed in the arterial phase of enhancement. Coronal and sagittal reformats, and well as rotating MIP images of the vessels generated at the workstation. Intravenous contrast dose: 99 mL Visipaque 320 Radiation dose: Total exam DLP = 609 mGy-cm. This CT exam was performed using one or more of the following dose reduction techniques: Automated exposure control, adjustment of the mA and/or kV according to patient size, and/or use of iterative reconstruction technique. FINDINGS: CT ANGIOGRAPHY: ABDOMINAL AORTA:: Calcific atherosclerosis. No aneurysm or stenosis. MAJOR AORTIC BRANCHES: Celiac [place]: Calcific atherosclerosis, widely patent Superior mesenteric artery: Calcific atherosclerosis causing mild to moderate ostial stenosis. Inferior mesenteric artery: Calcific atherosclerosis, widely patent Renal arteries: Calcific atherosclerosis, patent PELVIC ARTERIES: Right Common Iliac: Calcific atherosclerosis, patent Right External Iliac: Calcific atherosclerosis, patent. Right Internal Iliac: Proximal noncalcific plaque causing severe short segment stenosis. Left Common Iliac: Calcific atherosclerosis, patent. Left External Iliac: Calcific atherosclerosis, patent. Left Internal Iliac: Calcific atherosclerosis, patent. RIGHT LOWER EXTREMITY ARTERIES: Right Common Femoral: Calcific atherosclerosis, patent. Right Superficial Femoral: Calcific atherosclerosis. Tandem mild stenoses. Right Profunda Femoris: Calcific atherosclerosis, patent Right Popliteal:Focal severe stenosis proximally. Focal moderate stenosis in the midportion. Focal severe stenosis distally Right Anterior Tibial: Limited evaluation due to heavy calcific atherosclerosis, but believed to be patent. Right Tibioperoneal Trunk: Calcific atherosclerosis. Right Posterior Tibial: Occluded. Right Peroneal: Limited evaluation due to heavy calcific atherosclerosis, but believed to be patent. Right dorsalis pedis : Limited evaluation due to heavy calcific atherosclerosis, but believed to be patent. LEFT LOWER EXTREMITY ARTERIES: Left Common Femoral: Calcific atherosclerosis, patent Left Superficial Femoral: Calcific atherosclerosis. Tandem mild stenoses. Left Profunda Femoris: Calcific atherosclerosis, patent Left Popliteal: Short segment moderate stenosis proximally Left Anterior Tibial: Occluded. Left Tibioperoneal Trunk: Severe stenosis. Left Posterior Tibial: Occluded. Left Peronea: Limited evaluation due to heavy calcific atherosclerosis, but believed to have been some degree of flow Left Dorsalis pedis: Limited evaluation due to heavy calcific atherosclerosis. NON-ANGIOGRAPHIC ASPECT OF THE EXAM: LOWER THORAX: Bibasilar atelectasis/ scarring. Heart size normal. LIVER: Multiple stable hepatic hypodensities. No ductal dilatation. GALLBLADDER AND BILE DUCTS: Unremarkable. PANCREAS: Stable tiny 5 mm pancreatic tail hypodensity. No gross lesion or ductal dilatation. SPLEEN: Unremarkable. ADRENALS: Bilateral nodular hyperplasia. KIDNEYS AND URETERS: Stable right renal cyst. No hydronephrosis. No solid mass. STOMACH AND BOWEL: Prior right hemicolectomy with right upper quadrant ileocolic anastomosis. No obstruction. No gross mural thickening. APPENDIX: Not applicable due to right hemicolectomy. PERITONEUM: Unremarkable. No free fluid. No free air. LYMPH NODES: Unremarkable. No enlarged lymph nodes. BLADDER: Unremarkable. REPRODUCTIVE: Unremarkable. BONES: No acute fracture. OTHER FINDINGS: None. IMPRESSION: Extensive calcific atherosclerotic disease. Mild to moderate ostial stenosis of the superior mesenteric artery. Right lower extremity: Noncalcific plaque causing severe short segment stenosis of the proximal internal iliac artery. Tandem mild stenoses of the superficial femoral artery. Focal severe stenosis in the proximal popliteal artery, focal moderate stenosis in the mid popliteal artery. Focal severe stenosis in the distal popliteal artery. Limited evaluation of the [id number] arteries. Occlusion of the posterior tibial artery. Anterior tibial, peroneal and dorsalis pedis arteries are believed to be patent. Left lower extremity: Tandem mild stenoses of the superficial femoral artery. Short segment moderate stenosis of the proximal popliteal artery. Limited evaluation of the [id number]-[id number] artery is too heavy calcific atherosclerosis. Occlusion of the left anterior tibial and posterior tibial arteries. Severe stenosis of the tibioperoneal trunk. Limited evaluation of the peroneal artery, but there is believed to be some flow. Additional stable findings as above.
--- NOTE | 2017-11-21 20:10 | CP.PCM.PN ---
Subjective - Date & Time of Evaluation Date of Evaluation: 11/21/17 Time of Evaluation: 14:30 - Subjective Subjective: Patient seen and examined. Denied any complaint. Objective - Vital Signs/Intake and Output Vital Signs (last 24 hours): Temp Pulse Resp BP Pulse Ox 98.4 F 95 H 18 137/65 95 11/21/17 16:46 11/21/17 16:46 11/21/17 16:46 11/21/17 16:46 11/21/17 16:46 - Medications Medications: Current Medications Amlodipine Besylate (Norvasc) 10 mg PO DAILY [facility] Last Admin: 11/21/17 08:51 Dose: Not Given Ergocalciferol (Drisdol 50,000 Intl Units Cap) 1 cap PO Q7D [facility] Last Admin: 11/20/17 15:22 Dose: 1 cap Vancomycin HCl 1 gm/ Sodium (Chloride) 250 mls @ 166.667 mls/hr IVPB Q12H [facility] PRN Reason: Protocol Last Admin: 11/21/17 16:40 Dose: 166.667 mls/hr Piperacillin Sod/Tazobactam (Sod 3.375 gm/ Sodium Chloride) 100 mls @ 100 mls/ hr IVPB Q8 [facility] PRN Reason: Protocol Last Admin: 11/21/17 16:42 Dose: 100 mls/hr Insulin Human Lispro (Humalog) 0 units SC ACHS [facility] PRN Reason: Protocol Last Admin: 11/21/17 16:37 Dose: Not Given Losartan Potassium (Cozaar) 50 mg PO DAILY [facility] Last Admin: 11/21/17 08:51 Dose: Not Given Sitagliptin Phosphate (Januvia) 50 mg PO DAILY [facility] Last Admin: 11/21/17 08:51 Dose: Not Given Tramadol HCl (Ultram) 50 mg PO Q6 PRN PRN Reason: Pain, severe (8-10) - Labs Labs: 11/21/17 06:00 11/21/17 06:00 PT 12.0 Seconds (9.8-13.1) 11/20/17 11:00 INR 1.1 (0.9-1.2) 11/20/17 11:00 APTT 35.4 Seconds (25.6-37.1) 11/20/17 11:00 - Constitutional Appears: No Acute Distress - Head Exam Head Exam: ATRAUMATIC - Eye Exam Eye Exam: absent: Scleral icterus - ENT Exam ENT Exam: Mucous Membranes Moist - Neck Exam Neck Exam: absent: Meningismus - Respiratory Exam Respiratory Exam: absent: Rales, Rhonchi, Wheezes, Respiratory Distress - Cardiovascular Exam Cardiovascular Exam: REGULAR RHYTHM, +S1, +S2 - GI/Abdominal Exam GI & Abdominal Exam: Soft. absent: Tenderness - Rectal Exam Rectal Exam: Deferred - Neurological Exam Neurological Exam: Alert, Oriented x3 - Psychiatric Exam Psychiatric exam: Normal Affect - Skin Skin Exam: Dry, Intact Assessment and Plan - Assessment and Plan (Free Text) Assessment: 87 yo male with history of PAD, DM2, HTN, HLD admitted because of pain on right foot with gangrenous changes. Sent to ER from Dr Taylor's office for possible transmetatarsal amputation. 1. Right Foot Gangrene for amputation on Monday as per podiatry consult for revascularization tomorrow by Dr Jiménez continue IV Vancomycin and Zosyn Plavix on hold 2. HTN BP stable continue Amlodipine and Losartan 3. DM2 BS controlled continue Antonio PETTY
[2017-11-22] MEDS: Piperacillin/Tazobact 3.375 GM in Sodium Chloride 0.9% 100 ML IVPB SCH ×4 (00:21→18:20)
--- NOTE | 2017-11-22 08:28 | CP.PCM.PN ---
Subjective - Date & Time of Evaluation Date of Evaluation: 11/22/17 Time of Evaluation: 08:26 - Subjective Subjective: Podiatry Progress note: Dr. Nye 87 year old male patient with PMHx of HTN, HLD, DM was seen and evaluated for right forefoot gangrene. Patient is accompanied with his at bedside. Patient is AAOx3 and is in NAD. Agrees that he took the dressing off last night. No dressing present at the time of the visit. Denies of having any recent F/N/V/C/SOB/CP/headache. No new pedal complains at this time. Objective - Vital Signs/Intake and Output Vital Signs (last 24 hours): Temp Pulse Resp BP Pulse Ox 99.1 F 96 H 20 132/75 98 11/22/17 00:24 11/22/17 00:24 11/22/17 00:24 11/22/17 00:24 11/22/17 00:24 - Medications Medications: Current Medications Amlodipine Besylate (Norvasc) 10 mg PO DAILY [facility] Last Admin: 11/21/17 08:51 Dose: Not Given Ergocalciferol (Drisdol 50,000 Intl Units Cap) 1 cap PO Q7D [facility] Last Admin: 11/20/17 15:22 Dose: 1 cap Vancomycin HCl 1 gm/ Sodium (Chloride) 250 mls @ 166.667 mls/hr IVPB Q12H [facility] PRN Reason: Protocol Last Admin: 11/22/17 01:52 Dose: 166.667 mls/hr Piperacillin Sod/Tazobactam (Sod 3.375 gm/ Sodium Chloride) 100 mls @ 100 mls/ hr IVPB Q8 [facility] PRN Reason: Protocol Last Admin: 11/22/17 00:30 Dose: 100 mls/hr Insulin Human Lispro (Humalog) 0 units SC ACHS [facility] PRN Reason: Protocol Last Admin: 11/21/17 22:30 Dose: Not Given Losartan Potassium (Cozaar) 50 mg PO DAILY [facility] Last Admin: 11/21/17 08:51 Dose: Not Given Sitagliptin Phosphate (Januvia) 50 mg PO DAILY [facility] Last Admin: 11/21/17 08:51 Dose: Not Given Tramadol HCl (Ultram) 50 mg PO Q6 PRN PRN Reason: Pain, severe (8-10) Last Admin: 11/21/17 22:53 Dose: 50 mg - Labs Labs: 11/21/17 06:00 11/21/17 06:00 PT 12.0 Seconds (9.8-13.1) 11/20/17 11:00 INR 1.1 (0.9-1.2) 11/20/17 11:00 APTT 35.4 Seconds (25.6-37.1) 11/20/17 11:00 - Constitutional Appears: Well, Non-toxic, No Acute Distress - Extremities Exam Additional comments: Right LE focused exam No dressing present at the time of the visit Vasc: DP/PT pulses non palpable. Temp gradient cool to cool from proximal to distal, Cap refill time to the digits as well as plantar forefoot and midfoot appears sluggish and delayed > 3 sec. Mild forefoot pedal edema noted accompanied by minimal hyperemic erythema extending to the midfoot Derm: Previous surgical site noted to distal medial aspect of right foot which shows full thickness necrosis extending to 3rd digit with hyperpigmented changes , surgical sutures observed at the proximal end of the wound, Wound base appears fully necrotic and dry with no balaji wound maceration, No fluctuance, no purulence, no active drainage, faint malodor noted Neuro: Protective sensation grossly diminished Ortho: moderate tenderness to palpation along surgical site. 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 Nye Labs, vitals and charts reviewed - afebrile WBC @ 8.9 as of yesterday X-rays of the right foot ordered/reviewed - no soft tissue emphysema, no acute changes showing OM Wound cleaned with saline and dressing applied using betadine, 4x4 and Kerlix Vascular consult - Dr. Jiménez; recs appreciated - Revasc today Podiatry plans Transmetatarsal amputation tentatively /Monday Morning - will follow vascular recs ID consult - Dr. Buck; recs appreciated - Continue IV zosyn and Vanco Wound cx - pending Post op shoe ordered - Remain weightbearing to the heel in a surgical shoe Multipodus boots - to be worn at all times while in bed Podiatry will follow patient while in-house
[2017-11-22 08:33] LABS: BASO # 0.1 K/uL (0.0-0.2); BASO % 0.9 % (0.0-2.0); EOS # 0.1 K/uL (0.0-0.7); EOS % 1.1 % (0.0-4.0); HEMOGLOBIN 9.3 g/dL (12.0-18.0); LYMPH % 12.5 % (20.0-40.0); MEAN CELL VOLUME 87.1 fl (80.0-94.0); MEAN CORPUSCULAR HGB CONC 33.3 g/dL (33.0-37.0); MONO # 0.6 K/uL (0.0-0.8); MONO % 7.3 % (0.0-10.0); NEUT # 6.2 K/uL (1.8-7.0); NEUT % 78.2 % (50.0-75.0); NRBC % 0.1 % (0.0-0.0); RBC 3.21 Mil/uL (4.40-5.90); RED CELL DISTRIBUTION WIDTH 14.4 % (11.5-14.5)
[2017-11-22 08:43] LABS: ALB/GLOB RATIO 0.9 (1.0-2.1); ALBUMIN 3.7 g/dL (3.5-5.0); CALCIUM 9.5 mg/dL (8.4-10.2)
[2017-11-22] MEDS: Insulin Lispro (humaLOG) 100 Units/ml Inj SC SCH ×4 (08:54→22:53)
[2017-11-22 12:35] VITALS: BMI 16.7
--- NOTE | 2017-11-22 20:10 | CP.PCM.PN ---
Subjective - Date & Time of Evaluation Date of Evaluation: 11/22/17 Time of Evaluation: 09:00 - Subjective Subjective: events noted creat increased s/p revasc Vanco on hold will get level in AM Objective - Vital Signs/Intake and Output Vital Signs (last 24 hours): Temp Pulse Resp BP Pulse Ox 99.2 F 99 H 20 143/66 97 11/22/17 08:27 11/22/17 08:27 11/22/17 08:27 11/22/17 08:27 11/22/17 08:27 - Medications Medications: Current Medications Amlodipine Besylate (Norvasc) 10 mg PO DAILY [facility] Last Admin: 11/22/17 09:00 Dose: Not Given Ergocalciferol (Drisdol 50,000 Intl Units Cap) 1 cap PO Q7D [facility] Last Admin: 11/20/17 15:22 Dose: 1 cap Vancomycin HCl 1 gm/ Sodium (Chloride) 250 mls @ 166.667 mls/hr IVPB Q12H [facility] PRN Reason: Protocol Last Admin: 11/22/17 01:52 Dose: 166.667 mls/hr Piperacillin Sod/Tazobactam (Sod 3.375 gm/ Sodium Chloride) 100 mls @ 100 mls/ hr IVPB Q8 [facility] PRN Reason: Protocol Last Admin: 11/22/17 18:20 Dose: Not Given Insulin Human Lispro (Humalog) 0 units SC ACHS [facility] PRN Reason: Protocol Last Admin: 11/22/17 16:39 Dose: Not Given Losartan Potassium (Cozaar) 50 mg PO DAILY [facility] Last Admin: 11/22/17 09:00 Dose: Not Given Sitagliptin Phosphate (Januvia) 50 mg PO DAILY [facility] Last Admin: 11/22/17 08:55 Dose: Not Given Tramadol HCl (Ultram) 50 mg PO Q6 PRN PRN Reason: Pain, severe (8-10) Last Admin: 11/22/17 08:58 Dose: 50 mg - Labs Labs: 11/22/17 08:12 11/22/17 08:12 PT 12.0 Seconds (9.8-13.1) 11/20/17 11:00 INR 1.1 (0.9-1.2) 11/20/17 11:00 APTT 35.4 Seconds (25.6-37.1) 11/20/17 11:00 Assessment and Plan (1) Gangrene of foot Status: Acute (2) PVD (peripheral vascular disease) with claudication Status: Acute (3) KENNY (acute kidney injury) Status: Acute (4) Chronic osteomyelitis of right foot Status: Acute
[2017-11-22] MEDS: Saccharomyces Boulardi 250 mg Cap PO SCH (20:55)
[2017-11-23] MEDS: Piperacillin/Tazobact 3.375 GM in Sodium Chloride 0.9% 100 ML IVPB SCH ×3 (00:25→17:26)
[2017-11-23] MEDS: Insulin Lispro (humaLOG) 100 Units/ml Inj SC SCH ×4 (06:30→22:24)
[2017-11-23 07:00] LABS: BLOOD UREA NITROGEN 20 mg/dl (9-20); CALCIUM 9.6 mg/dL (8.4-10.2); GFR AFRICAN-AMERICAN > 60; GFR NON-AFRICAN AMERICAN 58
--- NOTE | 2017-11-23 07:59 | CP.PCM.PN ---
Subjective - Date & Time of Evaluation Date of Evaluation: 11/23/17 Time of Evaluation: 07:59 - Subjective Subjective: Podiatry Progress note: Dr. Nye 87 year old male patient seen and evaluated at bedside this AM for right forefoot gangrene. present at bedside. Patient s/p fire captain/atherectomy SFA. Patient denies any pain to right foot today. Dressing to right foot remains clean/dry/intact. Denies N/V/F/D/C/SOB/GUAJARDO/dizziness. Objective - Vital Signs/Intake and Output Vital Signs (last 24 hours): Temp Pulse Resp BP Pulse Ox 98.1 F 85 19 155/80 H 99 11/23/17 00:02 11/23/17 01:00 11/23/17 00:02 11/23/17 01:00 11/23/17 00:02 - Medications Medications: Current Medications Amlodipine Besylate (Norvasc) 10 mg PO DAILY [facility] Last Admin: 11/22/17 09:00 Dose: Not Given Ergocalciferol (Drisdol 50,000 Intl Units Cap) 1 cap PO Q7D [facility] Last Admin: 11/20/17 15:22 Dose: 1 cap Piperacillin Sod/Tazobactam (Sod 3.375 gm/ Sodium Chloride) 100 mls @ 100 mls/ hr IVPB Q8 [facility] PRN Reason: Protocol Last Admin: 11/23/17 00:25 Dose: 100 mls/hr Vancomycin HCl 1 gm/ Sodium (Chloride) 250 mls @ 166.667 mls/hr IVPB Q12@0900, 2100 [facility] PRN Reason: Protocol Insulin Human Lispro (Humalog) 0 units SC ACHS [facility] PRN Reason: Protocol Last Admin: 11/23/17 06:30 Dose: Not Given Losartan Potassium (Cozaar) 50 mg PO DAILY [facility] Last Admin: 11/22/17 09:00 Dose: Not Given Sitagliptin Phosphate (Januvia) 50 mg PO DAILY [facility] Last Admin: 11/22/17 08:55 Dose: Not Given Tramadol HCl (Ultram) 50 mg PO Q6 PRN PRN Reason: Pain, severe (8-10) Last Admin: 11/22/17 08:58 Dose: 50 mg - Labs Labs: 11/22/17 08:12 11/23/17 06:05 PT 12.0 Seconds (9.8-13.1) 11/20/17 11:00 INR 1.1 (0.9-1.2) 11/20/17 11:00 APTT 35.4 Seconds (25.6-37.1) 11/20/17 11:00 - Constitutional Appears: Well, Non-toxic, No Acute Distress - Extremities Exam Additional comments: Right LE focused exam Dressing to RLE clean/dry/intact with no strikethrough noted. Vasc: DP/PT pulses non palpable. Temp gradient cool to cool from proximal to distal, Cap refill time to the digits as well as plantar forefoot and midfoot appears sluggish and delayed > 3 sec. Mild forefoot pedal edema noted accompanied by minimal hyperemic erythema extending to the midfoot Derm: Previous surgical site noted to distal medial aspect of right foot which shows full thickness necrosis extending to 3rd digit with hyperpigmented changes , surgical sutures observed at the proximal end of the wound, Wound base appears fully necrotic and dry with no balaji wound maceration, No fluctuance, no purulence, no active drainage, faint malodor noted Neuro: Protective sensation grossly diminished Ortho: moderate tenderness to palpation along surgical site. 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 Nye Afebrile Right foot XR: no soft tissue emphysema, no acute changes showing OM Continue local wound care: betadine, DSD Vascular: s/p CHIMNEY SUPERVISOR BRICK/atherectomy of SFA calcified lesion with gradient of 40 mm Hg Ok to proceed with right foot TMA per Dr. Jiménez Patient medically stable for procedure per hospitalist Plan for OR right foot TMA 11/28/17 @ 3PM -Discussed with patient and at length about surgical procedure and post- operative course ID on board - continue Zosyn, Vancomycin Right foot wound culture - stenotrophomonas maltophilia, corynebacterium species Continue multipodus boots at all times in bed Patient may be WBAT to heel in surgical shoe Podiatry will continue to follow
--- NOTE | 2017-11-23 08:09 | CP.PCM.PN ---
Subjective - Date & Time of Evaluation Date of Evaluation: 11/23/17 Time of Evaluation: 08:08 - Subjective Subjective: pt comfortable this morning, resting no complaints at this time pain controlled hd stbale nad Objective - Vital Signs/Intake and Output Vital Signs (last 24 hours): Temp Pulse Resp BP Pulse Ox 98.1 F 85 19 155/80 H 99 11/23/17 00:02 11/23/17 01:00 11/23/17 00:02 11/23/17 01:00 11/23/17 00:02 Intake and Output: Vitals Reviewed GEN: WDWN, alert, cooperative HEENT: NCAT, PERRL, EOMI HEART: RRR, +S1S2, NO MRG LUNG: CTAB, NO WRR ABD: soft, NT, ND, No HSM, No masses EXT: normal pedal pulses, normal capillary refill NEURO: awake, alert SKIN: warm, dry PSYCH: normal mood, normal affect - Medications Medications: Current Medications Amlodipine Besylate (Norvasc) 10 mg PO DAILY [facility] Last Admin: 11/22/17 09:00 Dose: Not Given Ergocalciferol (Drisdol 50,000 Intl Units Cap) 1 cap PO Q7D [facility] Last Admin: 11/20/17 15:22 Dose: 1 cap Piperacillin Sod/Tazobactam (Sod 3.375 gm/ Sodium Chloride) 100 mls @ 100 mls/ hr IVPB Q8 [facility] PRN Reason: Protocol Last Admin: 11/23/17 00:25 Dose: 100 mls/hr Vancomycin HCl 1 gm/ Sodium (Chloride) 250 mls @ 166.667 mls/hr IVPB Q12@0900, 2100 [facility] PRN Reason: Protocol Insulin Human Lispro (Humalog) 0 units SC ACHS [facility] PRN Reason: Protocol Last Admin: 11/23/17 06:30 Dose: Not Given Losartan Potassium (Cozaar) 50 mg PO DAILY [facility] Last Admin: 11/22/17 09:00 Dose: Not Given Sitagliptin Phosphate (Januvia) 50 mg PO DAILY [facility] Last Admin: 11/22/17 08:55 Dose: Not Given Tramadol HCl (Ultram) 50 mg PO Q6 PRN PRN Reason: Pain, severe (8-10) Last Admin: 11/22/17 08:58 Dose: 50 mg - Labs Labs: 11/22/17 08:12 11/23/17 06:05 PT 12.0 Seconds (9.8-13.1) 11/20/17 11:00 INR 1.1 (0.9-1.2) 11/20/17 11:00 APTT 35.4 Seconds (25.6-37.1) 11/20/17 11:00 Assessment and Plan - Assessment and Plan (Free Text) Plan: 87 M PMH HTN, HLD, DM, b/l toe amputations, presented to the ED from Dr. Taylor's office for mod to severe worsening sharp R foot pain. Podiatry to take patient for transmetatarsal amputation for possible gangrenous changes. Vascular and ID consults obtained per Podiatry. Pt mildly hyperkalemic, and azotemic. Will hydrate patient gently. HD stable NAD. Gangrenous Foot - Podiatry consult with Dr. Taylor, who is patient's primary Accounts Payable Administrator likely transmetatarsal amputation - pain control - ID consult Dr. Buck per Podiatry request, appreciated - cont Vanc Zosyn - Vascular consult Dr. Jiménez- revascularization yesterday - Cardiac clearance per Dr. Jiménez - Medically stable for procedure, low risk for moderate risk procedure. METS > 4 , no dyspnea or chest pain at rest or on exertion. PVD - s/p revascularization with Dr. Jiménez - cont asa, plavix, statin, acei, cilostazol - serial exams, close monitoring Hypertension - continue Amlodipine and Losartan DM - continue Januvia, accuchecks and ISS Hyperkalemia resolved Azotemia, dehydration resolved
--- NOTE | 2017-11-23 08:33 | CP.PCM.PN ---
Subjective - Date & Time of Evaluation Date of Evaluation: 11/22/17 Time of Evaluation: 08:31 - Subjective Subjective: s/p shrimping boat captain/atherectomy of long SFA calcified lesion with 40mm Hg gradient wit lesion reduction down to < 10% and improvement in gradient Objective - Vital Signs/Intake and Output Vital Signs (last 24 hours): Temp Pulse Resp BP Pulse Ox 97.4 F L 81 20 97/54 L 100 11/23/17 08:20 11/23/17 08:20 11/23/17 08:20 11/23/17 08:20 11/23/17 08:20 - Medications Medications: Current Medications Amlodipine Besylate (Norvasc) 10 mg PO DAILY [facility] Last Admin: 11/22/17 09:00 Dose: Not Given Ergocalciferol (Drisdol 50,000 Intl Units Cap) 1 cap PO Q7D [facility] Last Admin: 11/20/17 15:22 Dose: 1 cap Piperacillin Sod/Tazobactam (Sod 3.375 gm/ Sodium Chloride) 100 mls @ 100 mls/ hr IVPB Q8 [facility] PRN Reason: Protocol Last Admin: 11/23/17 00:25 Dose: 100 mls/hr Vancomycin HCl 1 gm/ Sodium (Chloride) 250 mls @ 166.667 mls/hr IVPB Q12@0900, 2100 [facility] PRN Reason: Protocol Insulin Human Lispro (Humalog) 0 units SC ACHS [facility] PRN Reason: Protocol Last Admin: 11/23/17 06:30 Dose: Not Given Losartan Potassium (Cozaar) 50 mg PO DAILY [facility] Last Admin: 11/22/17 09:00 Dose: Not Given Sitagliptin Phosphate (Januvia) 50 mg PO DAILY [facility] Last Admin: 11/22/17 08:55 Dose: Not Given Tramadol HCl (Ultram) 50 mg PO Q6 PRN PRN Reason: Pain, severe (8-10) Last Admin: 11/22/17 08:58 Dose: 50 mg - Labs Labs: 11/22/17 08:12 11/23/17 06:05 PT 12.0 Seconds (9.8-13.1) 11/20/17 11:00 INR 1.1 (0.9-1.2) 11/20/17 11:00 APTT 35.4 Seconds (25.6-37.1) 11/20/17 11:00 - Constitutional Appears: Well - Head Exam Head Exam: ATRAUMATIC, NORMAL INSPECTION, NORMOCEPHALIC - Eye Exam Eye Exam: EOMI, Normal appearance, PERRL Pupil Exam: NORMAL ACCOMODATION, PERRL - ENT Exam ENT Exam: Mucous Membranes Moist, Normal Exam - Neck Exam Neck Exam: Full ROM, Normal Inspection. absent: Lymphadenopathy - Respiratory Exam Respiratory Exam: Clear to Ausculation Bilateral, NORMAL BREATHING PATTERN - Cardiovascular Exam Cardiovascular Exam: REGULAR RHYTHM, +S1, +S2. absent: Murmur - GI/Abdominal Exam GI & Abdominal Exam: Soft, Normal Bowel Sounds. absent: Tenderness - Extremities Exam Extremities Exam: Full ROM, Normal Capillary Refill, Normal Inspection. absent : Joint Swelling, Pedal Edema - Back Exam Back Exam: NORMAL INSPECTION - Neurological Exam Neurological Exam: Alert, Awake, CN II-XII Intact, Normal Gait, Oriented x3 - Psychiatric Exam Psychiatric exam: Normal Affect, Normal Mood - Skin Skin Exam: Dry, Intact, Normal Color, Warm Assessment and Plan (1) Gangrene of foot Assessment & Plan: s/p SOLDERER TORCH/atherectomy of SFA calcified lesion with gradient of 40 mm Hg asa , plavix statins acei cilostazol Status: Acute (2) PVD (peripheral vascular disease) with claudication Assessment & Plan: severe infragenicular disease to be managed medically at this time needs close surveillance of vascular status with podiatry and serial exams Status: Acute (3) Gangrene of toe of right foot Status: Acute (4) HTN (hypertension) Status: Chronic (5) History of hyperlipidemia Status: Chronic
--- NOTE | 2017-11-23 17:27 | CP.PCM.PN ---
Subjective - Date & Time of Evaluation Date of Evaluation: 11/23/17 Time of Evaluation: 08:00 - Subjective Subjective: denies fever no chest pain s/p COORDINATOR VOLUNTEER SERVICES/atherectomy of SFA calcified lesion with gradient of 40 mm Hg will go for right foot TMA Objective - Vital Signs/Intake and Output Vital Signs (last 24 hours): Temp Pulse Resp BP Pulse Ox 98.8 F 83 20 116/65 96 11/23/17 16:22 11/23/17 16:22 11/23/17 16:22 11/23/17 16:22 11/23/17 16:22 - Medications Medications: Current Medications Amlodipine Besylate (Norvasc) 10 mg PO DAILY [facility] Last Admin: 11/23/17 09:18 Dose: Not Given Aspirin (Ecotrin) 81 mg PO DAILY [facility] Last Admin: 11/23/17 09:18 Dose: 81 mg Clopidogrel Bisulfate (Plavix) 75 mg PO DAILY [facility] Last Admin: 11/23/17 09:18 Dose: 75 mg Ergocalciferol (Drisdol 50,000 Intl Units Cap) 1 cap PO Q7D [facility] Last Admin: 11/20/17 15:22 Dose: 1 cap Piperacillin Sod/Tazobactam (Sod 3.375 gm/ Sodium Chloride) 100 mls @ 100 mls/ hr IVPB Q8 [facility] PRN Reason: Protocol Last Admin: 11/23/17 09:18 Dose: 100 mls/hr Vancomycin HCl 1 gm/ Sodium (Chloride) 250 mls @ 166.667 mls/hr IVPB Q12@0900, 2100 [facility] PRN Reason: Protocol Last Admin: 11/23/17 10:29 Dose: Not Given Insulin Human Lispro (Humalog) 0 units SC ACHS [facility] PRN Reason: Protocol Last Admin: 11/23/17 13:14 Dose: 2 u Losartan Potassium (Cozaar) 50 mg PO DAILY [facility] Last Admin: 11/23/17 09:11 Dose: Not Given Sitagliptin Phosphate (Januvia) 50 mg PO DAILY [facility] Last Admin: 11/23/17 09:11 Dose: 50 mg - Labs Labs: 11/22/17 08:12 11/23/17 06:05 PT 12.0 Seconds (9.8-13.1) 11/20/17 11:00 INR 1.1 (0.9-1.2) 11/20/17 11:00 APTT 35.4 Seconds (25.6-37.1) 11/20/17 11:00 - Constitutional Appears: Non-toxic, Chronically Ill - Head Exam Head Exam: NORMOCEPHALIC - Eye Exam Eye Exam: absent: Scleral icterus - ENT Exam ENT Exam: Mucous Membranes Dry - Neck Exam Neck Exam: absent: Lymphadenopathy - Respiratory Exam Respiratory Exam: Decreased Breath Sounds - Cardiovascular Exam Cardiovascular Exam: REGULAR RHYTHM - GI/Abdominal Exam GI & Abdominal Exam: Distended - Rectal Exam Rectal Exam: Deferred - Exam Exam: NORMAL INSPECTION - Extremities Exam Extremities Exam: Pedal Edema - Back Exam Back Exam: absent: CVA tenderness (L), CVA tenderness (R) - Neurological Exam Neurological Exam: Alert, Awake, Oriented x3 Neuro motor strength exam: Left Upper Extremity: 3, Right Upper Extremity: 3, Left Lower Extremity: 3, Right Lower Extremity: 3 - Psychiatric Exam Psychiatric exam: Depressed - Skin Skin Exam: Dry Assessment and Plan (1) Gangrene of foot Status: Acute (2) PVD (peripheral vascular disease) with claudication Status: Acute (3) KENNY (acute kidney injury) Status: Acute (4) Chronic osteomyelitis of right foot Status: Acute - Assessment and Plan (Free Text) Assessment: for TMA in am cont IV antibiotics
[2017-11-23] MEDS: Lactobacillus Acidophilus 500 MU Cap PO SCH (18:55)
[2017-11-24 06:35] LABS: MEAN CELL VOLUME 88.7 fl (80.0-94.0); MEAN CORPUSCULAR HEMOGLOBIN 28.8 pg (27.0-31.0); MEAN CORPUSCULAR HGB CONC 32.5 g/dL (33.0-37.0); RBC 3.14 Mil/uL (4.40-5.90); RED CELL DISTRIBUTION WIDTH 14.6 % (11.5-14.5)
[2017-11-24 06:42] LABS: CALCIUM 9.1 mg/dL (8.4-10.2)
[2017-11-24] MEDS: Insulin Lispro (humaLOG) 100 Units/ml Inj SC SCH ×4 (07:00→21:54)
[2017-11-24] MEDS: Saccharomyces Boulardi 250 mg Cap PO SCH ×2 (10:08→17:13)
[2017-11-24] MEDS: Piperacillin/Tazobact 3.375 GM in Sodium Chloride 0.9% 100 ML IVPB SCH ×3 (10:13→17:27)
[2017-11-24] MEDS: Lactobacillus Acidophilus 500 MU Cap PO SCH ×2 (10:20→17:12)
--- NOTE | 2017-11-24 11:17 | CP.PCM.PN ---
Subjective - Date & Time of Evaluation Date of Evaluation: 11/24/17 Time of Evaluation: 10:00 - Subjective Subjective: Pt is afebrile has sl right leg pain denies CP no SOB no abd pain Full Code Surrogate decision maker - shellie Ellis Objective - Vital Signs/Intake and Output Vital Signs (last 24 hours): Temp Pulse Resp BP Pulse Ox 98.1 F 70 20 148/67 98 11/24/17 08:21 11/24/17 10:11 11/24/17 08:21 11/24/17 10:11 11/24/17 08:21 - Medications Medications: Current Medications Amlodipine Besylate (Norvasc) 10 mg PO DAILY [facility] Last Admin: 11/24/17 10:08 Dose: 10 mg Aspirin (Ecotrin) 81 mg PO DAILY [facility] Last Admin: 11/24/17 10:09 Dose: 81 mg Clopidogrel Bisulfate (Plavix) 75 mg PO DAILY [facility] Last Admin: 11/24/17 10:21 Dose: 75 mg Ergocalciferol (Drisdol 50,000 Intl Units Cap) 1 cap PO Q7D [facility] Last Admin: 11/20/17 15:22 Dose: 1 cap Piperacillin Sod/Tazobactam (Sod 3.375 gm/ Sodium Chloride) 100 mls @ 100 mls/ hr IVPB Q8 [facility] PRN Reason: Protocol Last Admin: 11/24/17 10:13 Dose: 100 mls/hr Vancomycin HCl 1 gm/ Sodium (Chloride) 250 mls @ 250 mls/hr IVPB Q24H [facility] PRN Reason: Protocol Last Admin: 11/23/17 18:55 Dose: 250 mls/hr Insulin Human Lispro (Humalog) 0 units SC ACHS [facility] PRN Reason: Protocol Last Admin: 11/24/17 07:00 Dose: Not Given Lactobacillus Acidophilus (Bacid Acidophilus) 1 cap PO BID [facility] Last Admin: 11/24/17 10:20 Dose: 1 cap Losartan Potassium (Cozaar) 50 mg PO DAILY [facility] Last Admin: 11/24/17 10:11 Dose: 50 mg Saccharomyces Boulardii (Florastor) 250 mg PO BID [facility] Last Admin: 11/24/17 10:08 Dose: 250 mg Sitagliptin Phosphate (Januvia) 50 mg PO DAILY [facility] Last Admin: 11/24/17 10:12 Dose: 50 mg Tramadol HCl (Ultram) 50 mg PO Q6 PRN PRN Reason: For pain scale 4-10 Last Admin: 11/23/17 23:41 Dose: 50 mg - Labs Labs: 11/24/17 05:30 11/24/17 05:30 PT 12.0 Seconds (9.8-13.1) 11/20/17 11:00 INR 1.1 (0.9-1.2) 11/20/17 11:00 APTT 35.4 Seconds (25.6-37.1) 11/20/17 11:00 - Constitutional Appears: No Acute Distress - Head Exam Head Exam: NORMAL INSPECTION, NORMOCEPHALIC - Eye Exam Eye Exam: EOMI, Normal appearance Pupil Exam: NORMAL ACCOMODATION - ENT Exam ENT Exam: Mucous Membranes Moist, Normal External Ear Exam - Neck Exam Neck Exam: Full ROM. absent: Meningismus - Respiratory Exam Respiratory Exam: NORMAL BREATHING PATTERN. absent: Rales, Wheezes, Respiratory Distress - Cardiovascular Exam Cardiovascular Exam: REGULAR RHYTHM, +S1, +S2 - GI/Abdominal Exam GI & Abdominal Exam: Soft, Normal Bowel Sounds. absent: Tenderness - Extremities Exam Extremities Exam: absent: Calf Tenderness Additional comments: Left TMA Right foot s/p 1st and 2nd toes amputation gangrenous changes, maceration Palpable Popliteal pulses bilaterally palpable left DP - Back Exam Back Exam: Full ROM. absent: CVA tenderness (L), CVA tenderness (R) - Neurological Exam Neurological Exam: Alert, Awake, CN II-XII Intact, Oriented x3 Neuro motor strength exam: Left Upper Extremity: 5, Right Upper Extremity: 5, Left Lower Extremity: 5, Right Lower Extremity: 5 - Psychiatric Exam Psychiatric exam: Normal Affect, Normal Mood - Skin Skin Exam: Dry, Normal Color, Warm Assessment and Plan (1) Gangrene of foot Status: Acute (2) PVD (peripheral vascular disease) with claudication Status: Chronic (3) DM type 2 (diabetes mellitus, type 2) Status: Chronic (4) HTN (hypertension) Status: Chronic (5) Hyperlipidemia Status: Chronic (6) DVT prophylaxis Status: Acute - Assessment and Plan (Free Text) Assessment: 87 y/o male with PMH of HTN, HLD, DM, PVD s/p L TMA and R 1st and 2nd toe amputations, presented to the ED from Dr. Taylro's office bec of worsening sharp R foot pain and gangrene. 11/22 : s/p BAKER PIE/Atherectomy of long SFA done by Dr Jiménez at [facility] 1. PVD with Gangrenous Foot, right s/p BAKER PIE/Atherectomy long SFA - Podiatry consult with Dr. Taylor, who is patient's primary Podiatr- plan for transmetatarsal amputation on Monday -ID consulted - cont IV Vanco and Zosyn - pain control - cont ASA, Plavix, ARB and Statin - Add Cilostazol as rec by Dr Jiménez - Cardiac clearance per Dr. Jiménez - Medically stable for procedure, low risk for moderate risk procedure. METS > 4 , no dyspnea or chest pain at rest or on exertion. 2. Hypertension - continue Amlodipine and Losartan 3. DM type II - continue Januvia, accuchecks and ISS 4. Hyperkalemia resolved 5. Azotemia, dehydration resolved with IVF hydration 6. Anemia of chronic Dis
[2017-11-24] MEDS ORDERED: Lactobacillus Acidophilus 500 MU Cap ONE (16:22)
[2017-11-24] MEDS ORDERED: Famotidine 40 MG/5 ML PO SCH (17:00)
--- NOTE | 2017-11-24 18:37 | CP.PCM.PN ---
Subjective - Date & Time of Evaluation Date of Evaluation: 11/24/17 Time of Evaluation: 18:37 - Subjective Subjective: c/o pain at the gangrenous sites Objective - Vital Signs/Intake and Output Vital Signs (last 24 hours): Temp Pulse Resp BP Pulse Ox 98.2 F 78 20 112/60 98 11/24/17 15:39 11/24/17 15:39 11/24/17 15:39 11/24/17 15:39 11/24/17 15:39 - Medications Medications: Current Medications Amlodipine Besylate (Norvasc) 10 mg PO DAILY [facility] Last Admin: 11/24/17 10:08 Dose: 10 mg Aspirin (Ecotrin) 81 mg PO DAILY [facility] Last Admin: 11/24/17 10:09 Dose: 81 mg Cilostazol (Pletal) 50 mg PO DAILY [facility] Clopidogrel Bisulfate (Plavix) 75 mg PO DAILY [facility] Last Admin: 11/24/17 10:21 Dose: 75 mg Ergocalciferol (Drisdol 50,000 Intl Units Cap) 1 cap PO Q7D [facility] Last Admin: 11/20/17 15:22 Dose: 1 cap Famotidine (Pepcid) 20 mg PO BID [facility] Piperacillin Sod/Tazobactam (Sod 3.375 gm/ Sodium Chloride) 100 mls @ 100 mls/ hr IVPB Q8 [facility] PRN Reason: Protocol Last Admin: 11/24/17 17:27 Dose: 100 mls/hr Vancomycin HCl 1 gm/ Sodium (Chloride) 250 mls @ 250 mls/hr IVPB Q24H [facility] PRN Reason: Protocol Last Admin: 11/24/17 17:25 Dose: 250 mls/hr Insulin Human Lispro (Humalog) 0 units SC ACHS [facility] PRN Reason: Protocol Last Admin: 11/24/17 17:15 Dose: Not Given Lactobacillus Acidophilus (Bacid Acidophilus) 1 cap PO BID [facility] Last Admin: 11/24/17 17:12 Dose: 1 cap Losartan Potassium (Cozaar) 50 mg PO DAILY [facility] Last Admin: 11/24/17 10:11 Dose: 50 mg Saccharomyces Boulardii (Florastor) 250 mg PO BID [facility] Last Admin: 11/24/17 17:13 Dose: 250 mg Sitagliptin Phosphate (Januvia) 50 mg PO DAILY [facility] Last Admin: 11/24/17 10:12 Dose: 50 mg Tramadol HCl (Ultram) 50 mg PO Q6 PRN PRN Reason: For pain scale 4-10 Last Admin: 11/24/17 11:42 Dose: 50 mg - Labs Labs: 11/24/17 05:30 11/24/17 05:30 PT 12.0 Seconds (9.8-13.1) 11/20/17 11:00 INR 1.1 (0.9-1.2) 11/20/17 11:00 APTT 35.4 Seconds (25.6-37.1) 11/20/17 11:00 - Constitutional Appears: Well - Head Exam Head Exam: ATRAUMATIC, NORMAL INSPECTION, NORMOCEPHALIC - Eye Exam Eye Exam: EOMI, Normal appearance, PERRL Pupil Exam: NORMAL ACCOMODATION, PERRL - ENT Exam ENT Exam: Mucous Membranes Moist, Normal Exam - Neck Exam Neck Exam: Full ROM, Normal Inspection. absent: Lymphadenopathy - Respiratory Exam Respiratory Exam: Clear to Ausculation Bilateral, NORMAL BREATHING PATTERN - Cardiovascular Exam Cardiovascular Exam: REGULAR RHYTHM, +S1, +S2. absent: Murmur - GI/Abdominal Exam GI & Abdominal Exam: Soft, Normal Bowel Sounds. absent: Tenderness - Extremities Exam Extremities Exam: Full ROM, Normal Capillary Refill, Normal Inspection. absent : Joint Swelling, Pedal Edema - Back Exam Back Exam: NORMAL INSPECTION - Neurological Exam Neurological Exam: Alert, Awake, CN II-XII Intact, Normal Gait, Oriented x3 - Psychiatric Exam Psychiatric exam: Normal Affect, Normal Mood - Skin Skin Exam: Dry, Intact, Normal Color, Warm Assessment and Plan (1) Gangrene of foot Status: Acute (2) PVD (peripheral vascular disease) with claudication Status: Chronic (3) Gangrene of toe of right foot Status: Acute (4) HTN (hypertension) Status: Chronic (5) History of hyperlipidemia Status: Chronic
[2017-11-25] MEDS: Piperacillin/Tazobact 3.375 GM in Sodium Chloride 0.9% 100 ML IVPB SCH ×3 (00:37→16:01)
[2017-11-25] MEDS: Insulin Lispro (humaLOG) 100 Units/ml Inj SC SCH ×5 (07:30→22:52)
--- NOTE | 2017-11-25 09:30 | CP.PCM.PN ---
Subjective - Date & Time of Evaluation Date of Evaluation: 11/25/17 Time of Evaluation: 09:28 - Subjective Subjective: Podiatry Progress note: Dr. Nye 87 year old male patient seen and evaluated at bedside this AM for right forefoot gangrene. present at bedside. Patient denies any pain to right foot today. Dressing to right foot remains clean/dry/intact. Denies N/V/F/D/C/ SOB/GUAJARDO/dizziness. No new pedal complains at this time. Objective - Vital Signs/Intake and Output Vital Signs (last 24 hours): Temp Pulse Resp BP Pulse Ox 97.6 F 72 19 166/67 H 99 11/25/17 07:54 11/25/17 07:54 11/25/17 07:54 11/25/17 07:54 11/25/17 07:54 - Medications Medications: Current Medications Amlodipine Besylate (Norvasc) 10 mg PO DAILY [facility] Last Admin: 11/24/17 10:08 Dose: 10 mg Aspirin (Ecotrin) 81 mg PO DAILY [facility] Last Admin: 11/24/17 10:09 Dose: 81 mg Cilostazol (Pletal) 50 mg PO DAILY [facility] Clopidogrel Bisulfate (Plavix) 75 mg PO DAILY [facility] Last Admin: 11/24/17 10:21 Dose: 75 mg Ergocalciferol (Drisdol 50,000 Intl Units Cap) 1 cap PO Q7D [facility] Last Admin: 11/20/17 15:22 Dose: 1 cap Famotidine (Pepcid) 20 mg PO BID [facility] Last Admin: 11/24/17 22:05 Dose: 20 mg Piperacillin Sod/Tazobactam (Sod 3.375 gm/ Sodium Chloride) 100 mls @ 100 mls/ hr IVPB Q8 [facility] PRN Reason: Protocol Last Admin: 11/25/17 00:37 Dose: 100 mls/hr Vancomycin HCl 1 gm/ Sodium (Chloride) 250 mls @ 250 mls/hr IVPB Q24H [facility] PRN Reason: Protocol Last Admin: 11/24/17 17:25 Dose: 250 mls/hr Insulin Human Lispro (Humalog) 0 units SC ACHS [facility] PRN Reason: Protocol Last Admin: 11/24/17 21:54 Dose: Not Given Lactobacillus Acidophilus (Bacid Acidophilus) 1 cap PO BID [facility] Last Admin: 11/24/17 17:12 Dose: 1 cap Losartan Potassium (Cozaar) 50 mg PO DAILY [facility] Last Admin: 11/24/17 10:11 Dose: 50 mg Saccharomyces Boulardii (Florastor) 250 mg PO BID [facility] Last Admin: 11/24/17 17:13 Dose: 250 mg Sitagliptin Phosphate (Januvia) 50 mg PO DAILY [facility] Last Admin: 11/24/17 10:12 Dose: 50 mg Tramadol HCl (Ultram) 50 mg PO Q6 PRN PRN Reason: For pain scale 4-10 Last Admin: 11/25/17 00:41 Dose: 50 mg - Labs Labs: 11/24/17 05:30 11/24/17 05:30 PT 12.0 Seconds (9.8-13.1) 11/20/17 11:00 INR 1.1 (0.9-1.2) 11/20/17 11:00 APTT 35.4 Seconds (25.6-37.1) 11/20/17 11:00 - Constitutional Appears: Well, Non-toxic, No Acute Distress - Extremities Exam Additional comments: Right LE focused exam Dressing to RLE clean/dry/intact with no strikethrough noted. Vasc: DP/PT pulses non palpable. Temp gradient cool to cool from proximal to distal, Cap refill time to the digits as well as plantar forefoot and midfoot appears sluggish and delayed > 3 sec. Mild forefoot pedal edema noted accompanied by minimal hyperemic erythema extending to the midfoot Derm: Previous surgical site noted to distal medial aspect of right foot which shows full thickness necrosis extending to 3rd digit with hyperpigmented changes , surgical sutures observed at the proximal end of the wound, Wound base appears fully necrotic and dry with no balaji wound maceration, No fluctuance, no purulence, no active drainage, faint malodor noted Neuro: Protective sensation grossly diminished Ortho: moderate tenderness to palpation along surgical site. 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 Jiménez Patient medically stable for procedure per hospitalist Plan for OR right foot TMA 11/28/17 @ 3PM -Discussed with patient and at length about surgical procedure and post- operative course ID on board - continue Zosyn, Vancomycin Right foot wound culture - stenotrophomonas maltophilia, corynebacterium species Continue multipodus boots at all times in bed Patient may be WBAT to heel in surgical shoe Podiatry will continue to follow
[2017-11-25] MEDS: Saccharomyces Boulardi 250 mg Cap PO SCH ×2 (09:57→16:00)
[2017-11-25] MEDS: Cilostazol 50 mg Tab UD PO SCH (09:57)
[2017-11-25] MEDS: Lactobacillus Acidophilus 500 MU Cap PO SCH ×2 (10:03→16:00)
--- NOTE | 2017-11-25 12:12 | CP.PCM.PN ---
Subjective - Date & Time of Evaluation Date of Evaluation: 11/25/17 Time of Evaluation: 11:30 - Subjective Subjective: No fever complains of pain -Ultram working but at times needs pain med before it is due- interval changed to q 4 denies CP no SOB no abd pain no diarrhea Objective - Vital Signs/Intake and Output Vital Signs (last 24 hours): Temp Pulse Resp BP Pulse Ox 97.6 F 72 19 166/67 H 99 11/25/17 07:54 11/25/17 09:57 11/25/17 07:54 11/25/17 09:57 11/25/17 07:54 - Medications Medications: Current Medications Amlodipine Besylate (Norvasc) 10 mg PO DAILY [facility] Last Admin: 11/25/17 09:57 Dose: 10 mg Aspirin (Ecotrin) 81 mg PO DAILY [facility] Last Admin: 11/25/17 09:58 Dose: 81 mg Cilostazol (Pletal) 50 mg PO DAILY [facility] Last Admin: 11/25/17 09:57 Dose: 50 mg Clopidogrel Bisulfate (Plavix) 75 mg PO DAILY [facility] Last Admin: 11/25/17 09:57 Dose: 75 mg Ergocalciferol (Drisdol 50,000 Intl Units Cap) 1 cap PO Q7D [facility] Last Admin: 11/20/17 15:22 Dose: 1 cap Famotidine (Pepcid) 20 mg PO BID [facility] Last Admin: 11/24/17 22:05 Dose: 20 mg Piperacillin Sod/Tazobactam (Sod 3.375 gm/ Sodium Chloride) 100 mls @ 100 mls/ hr IVPB Q8 [facility] PRN Reason: Protocol Last Admin: 11/25/17 10:03 Dose: 100 mls/hr Vancomycin HCl 1 gm/ Sodium (Chloride) 250 mls @ 250 mls/hr IVPB Q24H [facility] PRN Reason: Protocol Last Admin: 11/24/17 17:25 Dose: 250 mls/hr Insulin Human Lispro (Humalog) 0 units SC ACHS [facility] PRN Reason: Protocol Last Admin: 11/24/17 21:54 Dose: Not Given Lactobacillus Acidophilus (Bacid Acidophilus) 1 cap PO BID [facility] Last Admin: 11/25/17 10:03 Dose: 1 cap Losartan Potassium (Cozaar) 50 mg PO DAILY [facility] Last Admin: 11/25/17 09:57 Dose: 50 mg Saccharomyces Boulardii (Florastor) 250 mg PO BID [facility] Last Admin: 11/25/17 09:57 Dose: 250 mg Sitagliptin Phosphate (Januvia) 50 mg PO DAILY [facility] Last Admin: 11/25/17 09:57 Dose: 50 mg Tramadol HCl (Ultram) 50 mg PO Q6 PRN PRN Reason: For pain scale 4-10 Last Admin: 11/25/17 00:41 Dose: 50 mg - Labs Labs: 11/24/17 05:30 11/24/17 05:30 PT 12.0 Seconds (9.8-13.1) 11/20/17 11:00 INR 1.1 (0.9-1.2) 11/20/17 11:00 APTT 35.4 Seconds (25.6-37.1) 11/20/17 11:00 - Constitutional Appears: No Acute Distress - Head Exam Head Exam: NORMAL INSPECTION, NORMOCEPHALIC - Eye Exam Eye Exam: EOMI, Normal appearance Pupil Exam: NORMAL ACCOMODATION - ENT Exam ENT Exam: Mucous Membranes Moist, Normal External Ear Exam - Neck Exam Neck Exam: Full ROM. absent: Meningismus - Respiratory Exam Respiratory Exam: NORMAL BREATHING PATTERN. absent: Rales, Wheezes, Respiratory Distress - Cardiovascular Exam Cardiovascular Exam: REGULAR RHYTHM, +S1, +S2 - GI/Abdominal Exam GI & Abdominal Exam: Soft, Normal Bowel Sounds. absent: Tenderness - Extremities Exam Extremities Exam: absent: Calf Tenderness Additional comments: Left TMA Right foot s/p 1st and 2nd toes amputation gangrenous changes, maceration Palpable Popliteal pulses bilaterally palpable left DP - Back Exam Back Exam: Full ROM. absent: CVA tenderness (L), CVA tenderness (R) - Neurological Exam Neurological Exam: Alert, Awake, CN II-XII Intact, Oriented x3 Neuro motor strength exam: Left Upper Extremity: 5, Right Upper Extremity: 5, Left Lower Extremity: 5, Right Lower Extremity: 5 - Psychiatric Exam Psychiatric exam: Normal Affect, Normal Mood - Skin Skin Exam: Dry, Normal Color, Warm Assessment and Plan (1) Gangrene of foot Status: Acute (2) PVD (peripheral vascular disease) with claudication Status: Chronic (3) DM type 2 (diabetes mellitus, type 2) Status: Chronic (4) HTN (hypertension) Status: Chronic (5) Hyperlipidemia Status: Chronic (6) DVT prophylaxis Status: Acute - Assessment and Plan (Free Text) Assessment: 87 y/o male with PMH of HTN, HLD, DM, PVD s/p L TMA and R 1st and 2nd toe amputations, presented to the ED from Dr. Taylor's office bec of worsening sharp R foot pain and gangrene. 11/22 : s/p RN OBSERVATION/Atherectomy of long SFA done by Dr Jiménez at [facility] 1. PVD with Gangrenous Foot, right s/p RN OBSERVATION/Atherectomy long SFA - Podiatry consulted: Dr. Taylor, (patient's primary Canteen Attendant)- plan for transmetatarsal amputation on Monday -ID consulted - cont IV Vanco and Zosyn - pain control - cont ASA, Plavix, ARB , Cilostazol and Statin - Cardiac clearance per Dr. Jiménez - Medically stable for procedure, low risk for moderate risk procedure. METS > 4 , no dyspnea or chest pain at rest or on exertion. 2. Hypertension - continue Amlodipine and Losartan 3. DM type II - continue Januvia, accuchecks and ISS 4. Hyperkalemia resolved 5. Azotemia, dehydration resolved with IVF hydration 6. Anemia of chronic Dis - start Ferrous sulfate
[2017-11-26] MEDS: Piperacillin/Tazobact 3.375 GM in Sodium Chloride 0.9% 100 ML IVPB SCH ×3 (01:12→17:35)
[2017-11-26] MEDS: Insulin Lispro (humaLOG) 100 Units/ml Inj SC SCH ×4 (08:58→22:32)
[2017-11-26] MEDS: Lactobacillus Acidophilus 500 MU Cap PO SCH ×2 (09:26→17:27)
[2017-11-26] MEDS: Saccharomyces Boulardi 250 mg Cap PO SCH ×2 (09:27→17:27)
[2017-11-26] MEDS: Cilostazol 50 mg Tab UD PO SCH (09:28)
--- NOTE | 2017-11-26 10:54 | CP.PCM.PN ---
Subjective - Date & Time of Evaluation Date of Evaluation: 11/26/17 Time of Evaluation: 09:30 - Subjective Subjective: No fever complains of right leg pain denies CP no SOB no abd pain + BM, good UO Objective - Vital Signs/Intake and Output Vital Signs (last 24 hours): Temp Pulse Resp BP Pulse Ox 97.7 F 75 18 138/55 L 98 11/26/17 07:44 11/26/17 09:28 11/26/17 07:44 11/26/17 09:28 11/26/17 07:44 - Medications Medications: Current Medications Amlodipine Besylate (Norvasc) 10 mg PO DAILY [facility] Last Admin: 11/26/17 09:28 Dose: 10 mg Aspirin (Ecotrin) 81 mg PO DAILY [facility] Last Admin: 11/26/17 09:27 Dose: 81 mg Cilostazol (Pletal) 50 mg PO DAILY [facility] Last Admin: 11/26/17 09:28 Dose: 50 mg Clopidogrel Bisulfate (Plavix) 75 mg PO DAILY [facility] Last Admin: 11/26/17 09:28 Dose: 75 mg Ergocalciferol (Drisdol 50,000 Intl Units Cap) 1 cap PO Q7D [facility] Last Admin: 11/20/17 15:22 Dose: 1 cap Famotidine (Pepcid) 20 mg PO BID [facility] Last Admin: 11/26/17 09:28 Dose: 20 mg Ferrous Sulfate (Feosol) 325 mg PO BID [facility] Last Admin: 11/26/17 09:27 Dose: 325 mg Piperacillin Sod/Tazobactam (Sod 3.375 gm/ Sodium Chloride) 100 mls @ 100 mls/ hr IVPB Q8 [facility] PRN Reason: Protocol Last Admin: 11/26/17 09:30 Dose: 100 mls/hr Vancomycin HCl 1 gm/ Sodium (Chloride) 250 mls @ 250 mls/hr IVPB Q24H [facility] PRN Reason: Protocol Last Admin: 11/25/17 16:47 Dose: 250 mls/hr Insulin Human Lispro (Humalog) 0 units SC ACHS [facility] PRN Reason: Protocol Last Admin: 11/26/17 08:58 Dose: Not Given Lactobacillus Acidophilus (Bacid Acidophilus) 1 cap PO BID [facility] Last Admin: 11/26/17 09:26 Dose: 1 cap Losartan Potassium (Cozaar) 50 mg PO DAILY [facility] Last Admin: 11/26/17 09:27 Dose: 50 mg Saccharomyces Boulardii (Florastor) 250 mg PO BID [facility] Last Admin: 11/26/17 09:27 Dose: 250 mg Sitagliptin Phosphate (Januvia) 50 mg PO DAILY [facility] Last Admin: 11/26/17 09:28 Dose: 50 mg Tramadol HCl (Ultram) 50 mg PO Q4 PRN PRN Reason: For pain scale 4-10 Last Admin: 11/26/17 09:29 Dose: 50 mg - Labs Labs: 11/24/17 05:30 11/24/17 05:30 PT 12.0 Seconds (9.8-13.1) 11/20/17 11:00 INR 1.1 (0.9-1.2) 11/20/17 11:00 APTT 35.4 Seconds (25.6-37.1) 11/20/17 11:00 - Constitutional Appears: No Acute Distress - Head Exam Head Exam: NORMAL INSPECTION, NORMOCEPHALIC - Eye Exam Eye Exam: EOMI, Normal appearance Pupil Exam: NORMAL ACCOMODATION - ENT Exam ENT Exam: Mucous Membranes Moist, Normal External Ear Exam - Neck Exam Neck Exam: Full ROM. absent: Meningismus - Respiratory Exam Respiratory Exam: NORMAL BREATHING PATTERN. absent: Rales, Wheezes, Respiratory Distress - Cardiovascular Exam Cardiovascular Exam: REGULAR RHYTHM, +S1, +S2 - GI/Abdominal Exam GI & Abdominal Exam: Soft, Normal Bowel Sounds. absent: Tenderness - Extremities Exam Extremities Exam: absent: Calf Tenderness Additional comments: Left TMA Right foot s/p 1st and 2nd toes amputation gangrenous changes, maceration Palpable Popliteal pulses bilaterally palpable left DP - Back Exam Back Exam: Full ROM. absent: CVA tenderness (L), CVA tenderness (R) - Neurological Exam Neurological Exam: Alert, Awake, CN II-XII Intact, Oriented x3 Neuro motor strength exam: Left Upper Extremity: 5, Right Upper Extremity: 5, Left Lower Extremity: 5, Right Lower Extremity: 5 - Psychiatric Exam Psychiatric exam: Normal Affect, Normal Mood - Skin Skin Exam: Dry, Normal Color, Warm Assessment and Plan (1) Gangrene of foot Status: Acute (2) PVD (peripheral vascular disease) with claudication Status: Chronic (3) DM type 2 (diabetes mellitus, type 2) Status: Chronic (4) HTN (hypertension) Status: Chronic (5) Hyperlipidemia Status: Chronic (6) DVT prophylaxis Status: Acute - Assessment and Plan (Free Text) Assessment: 87 y/o male with PMH of HTN, HLD, DM, PVD s/p L TMA and R 1st and 2nd toe amputations, presented to the ED from Dr. Taylor's office bec of worsening sharp R foot pain and gangrene. 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 PVD with Gangrenous Foot, right s/p CYBER SYSTEMS OPERATIONS SPECIALIST/Atherectomy long SFA - Podiatry consulted: Dr. Taylor, (patient's primary Head Of Cytogenetics)- plan for Right transmetatarsal amputation on Monday -ID consulted- DR Buck - cont IV Vanco and Zosyn -Wound C/s: Stenotrophomonas & Corynebacterium - pain control - cont ASA, Plavix, ARB , Cilostazol and Statin - Cardiac clearance per Dr. Jiménez - Medically stable for procedure, low risk for moderate risk procedure. METS > 4 , no dyspnea or chest pain at rest or on exertion. 2. Hypertension - continue Amlodipine and Losartan - Increase Losartan to 100mg daily 3. DM type II - continue Januvia, accuchecks and ISS 4. Azotemia, dehydration resolved with IVF hydration 5. Anemia of chronic Dis - started Ferrous sulfate - stable H/H 6. DVT proph - Lovenox
--- NOTE | 2017-11-26 12:24 | CP.PCM.PN ---
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 APPLICATION DEVELOPMENT/atherectomy of SFA calcified lesion with gradient of 40 mm Hg will go for right foot TMA Objective - Vital Signs/Intake and Output Vital Signs (last 24 hours): Temp Pulse Resp BP Pulse Ox 97.7 F 75 18 138/55 L 98 11/26/17 07:44 11/26/17 09:28 11/26/17 07:44 11/26/17 09:28 11/26/17 07:44 - Medications Medications: Current Medications Amlodipine Besylate (Norvasc) 10 mg PO DAILY [facility] Last Admin: 11/26/17 09:28 Dose: 10 mg Aspirin (Ecotrin) 81 mg PO DAILY [facility] Last Admin: 11/26/17 09:27 Dose: 81 mg Cilostazol (Pletal) 50 mg PO DAILY [facility] Last Admin: 11/26/17 09:28 Dose: 50 mg Clopidogrel Bisulfate (Plavix) 75 mg PO DAILY [facility] Last Admin: 11/26/17 09:28 Dose: 75 mg Ergocalciferol (Drisdol 50,000 Intl Units Cap) 1 cap PO Q7D [facility] Last Admin: 11/20/17 15:22 Dose: 1 cap Famotidine (Pepcid) 20 mg PO BID [facility] Last Admin: 11/26/17 09:28 Dose: 20 mg Ferrous Sulfate (Feosol) 325 mg PO BID [facility] Last Admin: 11/26/17 09:27 Dose: 325 mg Piperacillin Sod/Tazobactam (Sod 3.375 gm/ Sodium Chloride) 100 mls @ 100 mls/ hr IVPB Q8 [facility] PRN Reason: Protocol Last Admin: 11/26/17 09:30 Dose: 100 mls/hr Vancomycin HCl 1 gm/ Sodium (Chloride) 250 mls @ 250 mls/hr IVPB Q24H [facility] PRN Reason: Protocol Last Admin: 11/25/17 16:47 Dose: 250 mls/hr Insulin Human Lispro (Humalog) 0 units SC ACHS [facility] PRN Reason: Protocol Last Admin: 11/26/17 08:58 Dose: Not Given Lactobacillus Acidophilus (Bacid Acidophilus) 1 cap PO BID [facility] Last Admin: 11/26/17 09:26 Dose: 1 cap Losartan Potassium (Cozaar) 50 mg PO DAILY [facility] Last Admin: 11/26/17 09:27 Dose: 50 mg Saccharomyces Boulardii (Florastor) 250 mg PO BID [facility] Last Admin: 11/26/17 09:27 Dose: 250 mg Sitagliptin Phosphate (Januvia) 50 mg PO DAILY [facility] Last Admin: 11/26/17 09:28 Dose: 50 mg Tramadol HCl (Ultram) 50 mg PO Q4 PRN PRN Reason: For pain scale 4-10 Last Admin: 11/26/17 09:29 Dose: 50 mg - Labs Labs: 11/24/17 05:30 11/24/17 05:30 PT 12.0 Seconds (9.8-13.1) 11/20/17 11:00 INR 1.1 (0.9-1.2) 11/20/17 11:00 APTT 35.4 Seconds (25.6-37.1) 11/20/17 11:00 - Constitutional Appears: Non-toxic, Chronically Ill - Head Exam Head Exam: NORMOCEPHALIC - Eye Exam Eye Exam: PERRL - ENT Exam ENT Exam: Mucous Membranes Dry - Neck Exam Neck Exam: absent: Lymphadenopathy - Respiratory Exam Respiratory Exam: Decreased Breath Sounds, Prolonged Expiratory Phase, Rhonchi - Cardiovascular Exam Cardiovascular Exam: REGULAR RHYTHM - GI/Abdominal Exam GI & Abdominal Exam: Distended, Soft - Rectal Exam Rectal Exam: Deferred - Exam Exam: NORMAL INSPECTION - Extremities Exam Extremities Exam: absent: Pedal Edema - Back Exam Back Exam: absent: CVA tenderness (L), CVA tenderness (R) - Neurological Exam Neurological Exam: Alert, Awake, CN II-XII Intact, Oriented x3 Neuro motor strength exam: Left Upper Extremity: 3, Right Upper Extremity: 3, Left Lower Extremity: 3, Right Lower Extremity: 3 - Psychiatric Exam Psychiatric exam: Depressed - Skin Skin Exam: Dry Assessment and Plan (1) Gangrene of foot Status: Acute (2) PVD (peripheral vascular disease) with claudication Status: Chronic (3) KENNY (acute kidney injury) Status: Acute (4) Chronic osteomyelitis of right foot Status: Acute
--- NOTE | 2017-11-26 14:27 | CP.PCM.PN ---
Subjective - Date & Time of Evaluation Date of Evaluation: 11/26/17 Time of Evaluation: 14:23 - Subjective Subjective: Podiatry Progress note: Dr. Nye 87 year old male patient seen and evaluated at bedside this AM for right forefoot gangrene. present at bedside. Dressing to right foot remains clean /dry/intact. Patient denies any pain to right foot today. Denies N/V/F/D/C/SOB/ GUAJARDO/dizziness. No new pedal complains at this time. Objective - Vital Signs/Intake and Output Vital Signs (last 24 hours): Temp Pulse Resp BP Pulse Ox 97.7 F 75 18 138/55 L 98 11/26/17 07:44 11/26/17 09:28 11/26/17 07:44 11/26/17 09:28 11/26/17 07:44 - Medications Medications: Current Medications Amlodipine Besylate (Norvasc) 10 mg PO DAILY [facility] Last Admin: 11/26/17 09:28 Dose: 10 mg Aspirin (Ecotrin) 81 mg PO DAILY [facility] Last Admin: 11/26/17 09:27 Dose: 81 mg Cilostazol (Pletal) 50 mg PO DAILY [facility] Last Admin: 11/26/17 09:28 Dose: 50 mg Clopidogrel Bisulfate (Plavix) 75 mg PO DAILY [facility] Last Admin: 11/26/17 09:28 Dose: 75 mg Ergocalciferol (Drisdol 50,000 Intl Units Cap) 1 cap PO Q7D [facility] Last Admin: 11/20/17 15:22 Dose: 1 cap Famotidine (Pepcid) 20 mg PO BID [facility] Last Admin: 11/26/17 09:28 Dose: 20 mg Ferrous Sulfate (Feosol) 325 mg PO BID [facility] Last Admin: 11/26/17 09:27 Dose: 325 mg Piperacillin Sod/Tazobactam (Sod 3.375 gm/ Sodium Chloride) 100 mls @ 100 mls/ hr IVPB Q8 [facility] PRN Reason: Protocol Last Admin: 11/26/17 09:30 Dose: 100 mls/hr Insulin Human Lispro (Humalog) 0 units SC ACHS [facility] PRN Reason: Protocol Last Admin: 11/26/17 13:37 Dose: 1 u Lactobacillus Acidophilus (Bacid Acidophilus) 1 cap PO BID [facility] Last Admin: 11/26/17 09:26 Dose: 1 cap Lidocaine (Lidoderm) 1 ea TD DAILY [facility] Losartan Potassium (Cozaar) 50 mg PO DAILY [facility] Last Admin: 11/26/17 09:27 Dose: 50 mg Saccharomyces Boulardii (Florastor) 250 mg PO BID [facility] Last Admin: 11/26/17 09:27 Dose: 250 mg Sitagliptin Phosphate (Januvia) 50 mg PO DAILY [facility] Last Admin: 11/26/17 09:28 Dose: 50 mg Tramadol HCl (Ultram) 50 mg PO Q4 PRN PRN Reason: For pain scale 4-10 Last Admin: 11/26/17 09:29 Dose: 50 mg - Labs Labs: 11/24/17 05:30 11/24/17 05:30 PT 12.0 Seconds (9.8-13.1) 11/20/17 11:00 INR 1.1 (0.9-1.2) 11/20/17 11:00 APTT 35.4 Seconds (25.6-37.1) 11/20/17 11:00 - Constitutional Appears: Well, Non-toxic, No Acute Distress - Extremities Exam Additional comments: Dressing is clean, dry and intact - Neurological Exam Neurological Exam: Alert, Awake, Oriented x3 - Psychiatric Exam Psychiatric exam: Normal Affect, Normal Mood Assessment and Plan - Assessment and Plan (Free Text) Assessment: 87 year old male with right forefoot gangrene Plan: Patient seen and evaluated Discussed with attending, Dr. 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 Jiménez Patient medically stable for procedure per hospitalist Plan for OR right foot TMA 11/28/17 @ 3PM -Discussed with patient and at length about surgical procedure and post- operative course ID on board - continue Zosyn, Vancomycin Right foot wound culture - stenotrophomonas maltophilia, corynebacterium species Continue multipodus boots at all times in bed Patient may be WBAT to heel in surgical shoe Podiatry will continue to follow
--- NOTE | 2017-11-26 15:32 | CP.PCM.PN ---
Subjective - Date & Time of Evaluation Date of Evaluation: 11/25/17 Time of Evaluation: 15:00 - Subjective Subjective: c/p pain and discomfort at the dorsum of the foot Objective - Vital Signs/Intake and Output Vital Signs (last 24 hours): Temp Pulse Resp BP Pulse Ox 97.7 F 75 18 138/55 L 98 11/26/17 07:44 11/26/17 09:28 11/26/17 07:44 11/26/17 09:28 11/26/17 07:44 - Medications Medications: Current Medications Amlodipine Besylate (Norvasc) 10 mg PO DAILY [facility] Last Admin: 11/26/17 09:28 Dose: 10 mg Aspirin (Ecotrin) 81 mg PO DAILY [facility] Last Admin: 11/26/17 09:27 Dose: 81 mg Cilostazol (Pletal) 50 mg PO DAILY [facility] Last Admin: 11/26/17 09:28 Dose: 50 mg Clopidogrel Bisulfate (Plavix) 75 mg PO DAILY [facility] Last Admin: 11/26/17 09:28 Dose: 75 mg Enoxaparin Sodium (Lovenox) 30 mg SC DAILY [facility] PRN Reason: Protocol Ergocalciferol (Drisdol 50,000 Intl Units Cap) 1 cap PO Q7D [facility] Last Admin: 11/20/17 15:22 Dose: 1 cap Famotidine (Pepcid) 20 mg PO BID [facility] Last Admin: 11/26/17 09:28 Dose: 20 mg Ferrous Sulfate (Feosol) 325 mg PO BID [facility] Last Admin: 11/26/17 09:27 Dose: 325 mg Piperacillin Sod/Tazobactam (Sod 3.375 gm/ Sodium Chloride) 100 mls @ 100 mls/ hr IVPB Q8 [facility] PRN Reason: Protocol Last Admin: 11/26/17 09:30 Dose: 100 mls/hr Vancomycin HCl 1 gm/ Sodium (Chloride) 250 mls @ 166.667 mls/hr IVPB DAILY [facility] PRN Reason: Protocol Last Admin: 11/26/17 15:20 Dose: 166.667 mls/hr Insulin Human Lispro (Humalog) 0 units SC ACHS [facility] PRN Reason: Protocol Last Admin: 11/26/17 13:37 Dose: 1 u Lactobacillus Acidophilus (Bacid Acidophilus) 1 cap PO BID [facility] Last Admin: 11/26/17 09:26 Dose: 1 cap Lidocaine (Lidoderm) 1 ea TD DAILY [facility] Losartan Potassium (Cozaar) 100 mg PO DAILY [facility] Saccharomyces Boulardii (Florastor) 250 mg PO BID [facility] Last Admin: 11/26/17 09:27 Dose: 250 mg Sitagliptin Phosphate (Januvia) 50 mg PO DAILY [facility] Last Admin: 11/26/17 09:28 Dose: 50 mg Tramadol HCl (Ultram) 50 mg PO Q4 PRN PRN Reason: For pain scale 4-10 Last Admin: 11/26/17 15:21 Dose: 50 mg - Labs Labs: 11/24/17 05:30 11/24/17 05:30 PT 12.0 Seconds (9.8-13.1) 11/20/17 11:00 INR 1.1 (0.9-1.2) 11/20/17 11:00 APTT 35.4 Seconds (25.6-37.1) 11/20/17 11:00 - Constitutional Appears: Well - Head Exam Head Exam: ATRAUMATIC, NORMAL INSPECTION, NORMOCEPHALIC - Eye Exam Eye Exam: EOMI, Normal appearance, PERRL Pupil Exam: NORMAL ACCOMODATION, PERRL - ENT Exam ENT Exam: Mucous Membranes Moist, Normal Exam - Neck Exam Neck Exam: Full ROM, Normal Inspection. absent: Lymphadenopathy - Respiratory Exam Respiratory Exam: Clear to Ausculation Bilateral, NORMAL BREATHING PATTERN - Cardiovascular Exam Cardiovascular Exam: REGULAR RHYTHM, +S1, +S2. absent: Murmur - GI/Abdominal Exam GI & Abdominal Exam: Soft, Normal Bowel Sounds. absent: Tenderness - Extremities Exam Extremities Exam: Normal Inspection. absent: Joint Swelling, Pedal Edema - Back Exam Back Exam: NORMAL INSPECTION - Neurological Exam Neurological Exam: Alert, Awake, CN II-XII Intact, Normal Gait, Oriented x3 - Psychiatric Exam Psychiatric exam: Normal Affect, Normal Mood - Skin Skin Exam: Dry, Intact, Normal Color, Warm Assessment and Plan (1) Gangrene of foot Status: Acute (2) PVD (peripheral vascular disease) with claudication Assessment & Plan: hold asa and plavix 24 hours preop cont cilostazol Status: Chronic (3) Gangrene of toe of right foot Status: Acute (4) HTN (hypertension) Assessment & Plan: cont arb Status: Chronic (5) History of hyperlipidemia Assessment & Plan: statins Status: Chronic
--- NOTE | 2017-11-26 15:37 | CP.PCM.PN ---
Subjective - Date & Time of Evaluation Date of Evaluation: 11/26/17 Time of Evaluation: 15:36 - Subjective Subjective: c/o leg discomfort Objective - Vital Signs/Intake and Output Vital Signs (last 24 hours): Temp Pulse Resp BP Pulse Ox 97.7 F 75 18 138/55 L 98 11/26/17 07:44 11/26/17 09:28 11/26/17 07:44 11/26/17 09:28 11/26/17 07:44 - Medications Medications: Current Medications Amlodipine Besylate (Norvasc) 10 mg PO DAILY [facility] Last Admin: 11/26/17 09:28 Dose: 10 mg Aspirin (Ecotrin) 81 mg PO DAILY [facility] Last Admin: 11/26/17 09:27 Dose: 81 mg Cilostazol (Pletal) 50 mg PO DAILY [facility] Last Admin: 11/26/17 09:28 Dose: 50 mg Clopidogrel Bisulfate (Plavix) 75 mg PO DAILY [facility] Last Admin: 11/26/17 09:28 Dose: 75 mg Enoxaparin Sodium (Lovenox) 30 mg SC DAILY [facility] PRN Reason: Protocol Ergocalciferol (Drisdol 50,000 Intl Units Cap) 1 cap PO Q7D [facility] Last Admin: 11/20/17 15:22 Dose: 1 cap Famotidine (Pepcid) 20 mg PO BID [facility] Last Admin: 11/26/17 09:28 Dose: 20 mg Ferrous Sulfate (Feosol) 325 mg PO BID [facility] Last Admin: 11/26/17 09:27 Dose: 325 mg Piperacillin Sod/Tazobactam (Sod 3.375 gm/ Sodium Chloride) 100 mls @ 100 mls/ hr IVPB Q8 [facility] PRN Reason: Protocol Last Admin: 11/26/17 09:30 Dose: 100 mls/hr Vancomycin HCl 1 gm/ Sodium (Chloride) 250 mls @ 166.667 mls/hr IVPB DAILY [facility] PRN Reason: Protocol Last Admin: 11/26/17 15:20 Dose: 166.667 mls/hr Insulin Human Lispro (Humalog) 0 units SC ACHS [facility] PRN Reason: Protocol Last Admin: 11/26/17 13:37 Dose: 1 u Lactobacillus Acidophilus (Bacid Acidophilus) 1 cap PO BID [facility] Last Admin: 11/26/17 09:26 Dose: 1 cap Lidocaine (Lidoderm) 1 ea TD DAILY [facility] Losartan Potassium (Cozaar) 100 mg PO DAILY [facility] Saccharomyces Boulardii (Florastor) 250 mg PO BID [facility] Last Admin: 11/26/17 09:27 Dose: 250 mg Sitagliptin Phosphate (Januvia) 50 mg PO DAILY [facility] Last Admin: 11/26/17 09:28 Dose: 50 mg Tramadol HCl (Ultram) 50 mg PO Q4 PRN PRN Reason: For pain scale 4-10 Last Admin: 11/26/17 15:21 Dose: 50 mg - Labs Labs: 11/24/17 05:30 11/24/17 05:30 PT 12.0 Seconds (9.8-13.1) 11/20/17 11:00 INR 1.1 (0.9-1.2) 11/20/17 11:00 APTT 35.4 Seconds (25.6-37.1) 11/20/17 11:00 - Constitutional Appears: Well - Head Exam Head Exam: ATRAUMATIC, NORMAL INSPECTION, NORMOCEPHALIC - Eye Exam Eye Exam: EOMI, Normal appearance, PERRL Pupil Exam: NORMAL ACCOMODATION, PERRL - ENT Exam ENT Exam: Mucous Membranes Moist, Normal Exam - Neck Exam Neck Exam: Full ROM, Normal Inspection. absent: Lymphadenopathy - Respiratory Exam Respiratory Exam: Clear to Ausculation Bilateral, NORMAL BREATHING PATTERN - Cardiovascular Exam Cardiovascular Exam: REGULAR RHYTHM, +S1, +S2. absent: Murmur - GI/Abdominal Exam GI & Abdominal Exam: Soft, Normal Bowel Sounds. absent: Tenderness - Extremities Exam Extremities Exam: Full ROM, Normal Inspection. absent: Joint Swelling, Pedal Edema - Back Exam Back Exam: NORMAL INSPECTION - Neurological Exam Neurological Exam: Alert, Awake, CN II-XII Intact, Normal Gait, Oriented x3 - Psychiatric Exam Psychiatric exam: Normal Affect, Normal Mood - Skin Skin Exam: Dry, Intact, Normal Color, Warm Assessment and Plan (1) Gangrene of foot Status: Acute (2) PVD (peripheral vascular disease) with claudication Status: Chronic (3) Gangrene of toe of right foot Status: Acute (4) HTN (hypertension) Status: Chronic (5) History of hyperlipidemia Status: Chronic
[2017-11-26] MEDS: Lidocaine 5% Patch TD SCH (17:26)
[2017-11-27] MEDS: Piperacillin/Tazobact 3.375 GM in Sodium Chloride 0.9% 100 ML IVPB SCH ×3 (00:59→16:51)
[2017-11-27 06:37] LABS: BASO # 0.1 K/uL (0.0-0.2); EOS # 0.1 K/uL (0.0-0.7); EOS % 1.9 % (0.0-4.0); HEMOGLOBIN 8.6 g/dL (12.0-18.0); LYMPH # 0.8 K/uL (1.0-4.3); LYMPH % 12.3 % (20.0-40.0); MEAN CELL VOLUME 87.5 fl (80.0-94.0); MEAN CORPUSCULAR HEMOGLOBIN 28.7 pg (27.0-31.0); MEAN CORPUSCULAR HGB CONC 32.8 g/dL (33.0-37.0); MEAN PLATELET VOLUME 8.2 fl (7.2-11.7); MONO # 0.6 K/uL (0.0-0.8); MONO % 8.6 % (0.0-10.0); NEUT # 5.1 K/uL (1.8-7.0); NEUT % 76.2 % (50.0-75.0); RED CELL DISTRIBUTION WIDTH 14.3 % (11.5-14.5); WHITE BLOOD COUNT 6.7 K/uL (4.8-10.8)
--- NOTE | 2017-11-27 06:42 | CP.PCM.PN ---
Subjective - Date & Time of Evaluation Date of Evaluation: 11/27/17 Time of Evaluation: 06:42 - Subjective Subjective: Podiatry - Dr. Burrell 87 year old male patient seen and evaluated at bedside this AM for right forefoot gangrene. Patient resting comfortably, NAD. Patient offers no complaints to right foot today. Dressing to right foot remains clean/dry/ intact. Patient is aware he is scheduled for R foot TMA tomorrow and will be NPO @ mn. Denies N/V/F/D/C/SOB/GUAJARDO/dizziness. Objective - Vital Signs/Intake and Output Vital Signs (last 24 hours): Temp Pulse Resp BP Pulse Ox 98.5 F 83 18 121/65 98 11/26/17 23:54 11/26/17 23:54 11/26/17 23:54 11/26/17 23:54 11/26/17 23:54 - Medications Medications: Current Medications Amlodipine Besylate (Norvasc) 10 mg PO DAILY [facility] Last Admin: 11/26/17 09:28 Dose: 10 mg Aspirin (Ecotrin) 81 mg PO DAILY [facility] Last Admin: 11/26/17 09:27 Dose: 81 mg Cilostazol (Pletal) 50 mg PO DAILY [facility] Last Admin: 11/26/17 09:28 Dose: 50 mg Clopidogrel Bisulfate (Plavix) 75 mg PO DAILY [facility] Last Admin: 11/26/17 09:28 Dose: 75 mg Enoxaparin Sodium (Lovenox) 30 mg SC DAILY [facility] PRN Reason: Protocol Ergocalciferol (Drisdol 50,000 Intl Units Cap) 1 cap PO Q7D [facility] Last Admin: 11/20/17 15:22 Dose: 1 cap Famotidine (Pepcid) 20 mg PO BID [facility] Last Admin: 11/26/17 17:28 Dose: 20 mg Ferrous Sulfate (Feosol) 325 mg PO BID [facility] Last Admin: 11/26/17 17:27 Dose: 325 mg Piperacillin Sod/Tazobactam (Sod 3.375 gm/ Sodium Chloride) 100 mls @ 100 mls/ hr IVPB Q8 [facility] PRN Reason: Protocol Last Admin: 11/27/17 00:59 Dose: 100 mls/hr Vancomycin HCl 1 gm/ Sodium (Chloride) 250 mls @ 166.667 mls/hr IVPB DAILY [facility] PRN Reason: Protocol Last Admin: 11/26/17 15:20 Dose: 166.667 mls/hr Insulin Human Lispro (Humalog) 0 units SC ACHS [facility] PRN Reason: Protocol Last Admin: 11/26/17 22:32 Dose: Not Given Lactobacillus Acidophilus (Bacid Acidophilus) 1 cap PO BID [facility] Last Admin: 11/26/17 17:27 Dose: 1 cap Lidocaine (Lidoderm) 1 ea TD DAILY [facility] Last Admin: 11/26/17 17:26 Dose: 1 ea Losartan Potassium (Cozaar) 100 mg PO DAILY [facility] Saccharomyces Boulardii (Florastor) 250 mg PO BID [facility] Last Admin: 11/26/17 17:27 Dose: 250 mg Sitagliptin Phosphate (Januvia) 50 mg PO DAILY [facility] Last Admin: 11/26/17 09:28 Dose: 50 mg Tramadol HCl (Ultram) 50 mg PO Q4 PRN PRN Reason: For pain scale 4-10 Last Admin: 11/26/17 15:21 Dose: 50 mg - Labs Labs: 11/24/17 05:30 11/24/17 05:30 PT 12.0 Seconds (9.8-13.1) 11/20/17 11:00 INR 1.1 (0.9-1.2) 11/20/17 11:00 APTT 35.4 Seconds (25.6-37.1) 11/20/17 11:00 - Constitutional Appears: Well, Non-toxic, No Acute Distress - Extremities Exam Additional comments: Right LE focused exam Dressing to RLE clean/dry/intact with no strikethrough noted. Vasc: DP/PT pulses non palpable. Temp gradient cool to cool from proximal to distal, Cap refill time to the digits as well as plantar forefoot and midfoot appears sluggish and delayed > 3 sec. Mild forefoot pedal edema noted accompanied by minimal hyperemic erythema extending to the midfoot Derm: Previous surgical site noted to distal medial aspect of right foot which shows full thickness necrosis extending to 3rd digit with hyperpigmented changes , surgical sutures observed at the proximal end of the wound, Wound base appears fully necrotic and dry with no balaji wound maceration, No fluctuance, no purulence, no active drainage, faint malodor noted Neuro: Protective sensation grossly diminished Ortho: moderate tenderness to palpation along surgical site. 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 Jiménez Patient medically stable for procedure per hospitalist Plan for OR right foot TMA 11/28/17 @ 3PM -Discussed with patient and at length about surgical procedure and post- operative course -NPO @ [place] -Aspirin & Plavix held -Lovenox to be held tomorrow morning ID on board - continue Zosyn, Vancomycin Right foot wound culture - stenotrophomonas maltophilia, corynebacterium species Continue multipodus boots at all times in bed Patient may be WBAT to heel in surgical shoe Podiatry will continue to follow
[2017-11-27 07:03] LABS: PARTIAL THROMBOPLASTIN TIME 33.6 Seconds (25.6-37.1); PROTHROMBIN TIME 11.4 Seconds (9.8-13.1)
[2017-11-27 08:21] LABS: ALB/GLOB RATIO 0.8 (1.0-2.1); ALBUMIN 3.6 g/dL (3.5-5.0); CALCIUM 9.3 mg/dL (8.4-10.2)
--- NOTE | 2017-11-27 08:48 | CP.PCM.PN ---
Subjective - Date & Time of Evaluation Date of Evaluation: 11/27/17 Time of Evaluation: 08:46 - Subjective Subjective: plan for TMA tomorrow asa and plavix to be held today cont cilostazol c/o dorsal aspect of foot pain Objective - Vital Signs/Intake and Output Vital Signs (last 24 hours): Temp Pulse Resp BP Pulse Ox 97.6 F 73 18 161/56 H 98 11/27/17 07:54 11/27/17 07:54 11/27/17 07:54 11/27/17 07:54 11/27/17 07:54 - Medications Medications: Current Medications Amlodipine Besylate (Norvasc) 10 mg PO DAILY [facility] Last Admin: 11/26/17 09:28 Dose: 10 mg Aspirin (Ecotrin) 81 mg PO DAILY [facility] Last Admin: 11/26/17 09:27 Dose: 81 mg Cilostazol (Pletal) 50 mg PO DAILY [facility] Last Admin: 11/26/17 09:28 Dose: 50 mg Clopidogrel Bisulfate (Plavix) 75 mg PO DAILY [facility] Last Admin: 11/26/17 09:28 Dose: 75 mg Enoxaparin Sodium (Lovenox) 30 mg SC DAILY [facility] PRN Reason: Protocol Ergocalciferol (Drisdol 50,000 Intl Units Cap) 1 cap PO Q7D [facility] Last Admin: 11/20/17 15:22 Dose: 1 cap Famotidine (Pepcid) 20 mg PO BID [facility] Last Admin: 11/26/17 17:28 Dose: 20 mg Ferrous Sulfate (Feosol) 325 mg PO BID [facility] Last Admin: 11/26/17 17:27 Dose: 325 mg Piperacillin Sod/Tazobactam (Sod 3.375 gm/ Sodium Chloride) 100 mls @ 100 mls/ hr IVPB Q8 [facility] PRN Reason: Protocol Last Admin: 11/27/17 00:59 Dose: 100 mls/hr Vancomycin HCl 1 gm/ Sodium (Chloride) 250 mls @ 166.667 mls/hr IVPB DAILY [facility] PRN Reason: Protocol Last Admin: 11/26/17 15:20 Dose: 166.667 mls/hr Insulin Human Lispro (Humalog) 0 units SC ACHS [facility] PRN Reason: Protocol Last Admin: 11/26/17 22:32 Dose: Not Given Lactobacillus Acidophilus (Bacid Acidophilus) 1 cap PO BID [facility] Last Admin: 11/26/17 17:27 Dose: 1 cap Lidocaine (Lidoderm) 1 ea TD DAILY [facility] Last Admin: 11/26/17 17:26 Dose: 1 ea Losartan Potassium (Cozaar) 100 mg PO DAILY [facility] Saccharomyces Boulardii (Florastor) 250 mg PO BID [facility] Last Admin: 11/26/17 17:27 Dose: 250 mg Sitagliptin Phosphate (Januvia) 50 mg PO DAILY [facility] Last Admin: 11/26/17 09:28 Dose: 50 mg Tramadol HCl (Ultram) 50 mg PO Q4 PRN PRN Reason: For pain scale 4-10 Last Admin: 11/26/17 15:21 Dose: 50 mg - Labs Labs: 11/27/17 06:10 11/27/17 06:10 PT 11.4 Seconds (9.8-13.1) 11/27/17 06:10 INR 1.0 (0.9-1.2) 11/27/17 06:10 APTT 33.6 Seconds (25.6-37.1) 11/27/17 06:10 - Constitutional Appears: Well - Head Exam Head Exam: ATRAUMATIC, NORMAL INSPECTION, NORMOCEPHALIC - Eye Exam Eye Exam: EOMI, Normal appearance, PERRL Pupil Exam: NORMAL ACCOMODATION, PERRL - ENT Exam ENT Exam: Mucous Membranes Moist, Normal Exam - Neck Exam Neck Exam: Full ROM, Normal Inspection. absent: Lymphadenopathy - Respiratory Exam Respiratory Exam: Clear to Ausculation Bilateral, NORMAL BREATHING PATTERN - Cardiovascular Exam Cardiovascular Exam: REGULAR RHYTHM, +S1, +S2. absent: Murmur - GI/Abdominal Exam GI & Abdominal Exam: Soft, Normal Bowel Sounds. absent: Tenderness - Extremities Exam Extremities Exam: Full ROM, Normal Inspection. absent: Joint Swelling, Pedal Edema Additional comments: dsg at gangrenous toes - Back Exam Back Exam: NORMAL INSPECTION - Neurological Exam Neurological Exam: Alert, Awake, CN II-XII Intact, Normal Gait, Oriented x3 - Psychiatric Exam Psychiatric exam: Normal Affect, Normal Mood - Skin Skin Exam: Dry, Intact, Normal Color, Warm Assessment and Plan (1) Gangrene of foot Assessment & Plan: asa, plavix to be held x 24 hours pre-procedure cont cilostazol Status: Acute (2) PVD (peripheral vascular disease) with claudication Assessment & Plan: cont losartan add statins Status: Chronic (3) Gangrene of toe of right foot Status: Acute (4) HTN (hypertension) Status: Chronic (5) History of hyperlipidemia Status: Chronic
[2017-11-27] MEDS: Saccharomyces Boulardi 250 mg Cap PO SCH ×2 (08:52→16:50)
[2017-11-27] MEDS: Cilostazol 50 mg Tab UD PO SCH (08:53)
[2017-11-27] MEDS: Lactobacillus Acidophilus 500 MU Cap PO SCH ×2 (08:59→16:50)
[2017-11-27] MEDS: Insulin Lispro (humaLOG) 100 Units/ml Inj SC SCH ×4 (09:03→21:58)
[2017-11-27] MEDS: Lidocaine 5% Patch TD SCH (09:05)
[2017-11-27] MEDS: Enoxaparin 30 mg Syringe SC SCH (09:06)
--- NOTE | 2017-11-27 11:19 | CP.PCM.PN ---
Subjective - Date & Time of Evaluation Date of Evaluation: 11/27/17 Time of Evaluation: 08:00 - Subjective Subjective: seen on rounds appears comfortable no fever Objective - Vital Signs/Intake and Output Vital Signs (last 24 hours): Temp Pulse Resp BP Pulse Ox 97.6 F 73 18 161/56 H 98 11/27/17 07:54 11/27/17 08:52 11/27/17 07:54 11/27/17 08:52 11/27/17 07:54 - Medications Medications: Current Medications Amlodipine Besylate (Norvasc) 10 mg PO DAILY [facility] Last Admin: 11/27/17 08:52 Dose: 10 mg Aspirin (Ecotrin) 81 mg PO DAILY [facility] Last Admin: 11/26/17 09:27 Dose: 81 mg Cilostazol (Pletal) 50 mg PO DAILY [facility] Last Admin: 11/27/17 08:53 Dose: 50 mg Clopidogrel Bisulfate (Plavix) 75 mg PO DAILY [facility] Last Admin: 11/26/17 09:28 Dose: 75 mg Enoxaparin Sodium (Lovenox) 30 mg SC DAILY [facility] PRN Reason: Protocol Last Admin: 11/27/17 09:06 Dose: 30 mg Ergocalciferol (Drisdol 50,000 Intl Units Cap) 1 cap PO Q7D [facility] Last Admin: 11/20/17 15:22 Dose: 1 cap Famotidine (Pepcid) 20 mg PO BID [facility] Last Admin: 11/27/17 08:53 Dose: 20 mg Ferrous Sulfate (Feosol) 325 mg PO BID [facility] Last Admin: 11/27/17 08:52 Dose: 325 mg Piperacillin Sod/Tazobactam (Sod 3.375 gm/ Sodium Chloride) 100 mls @ 100 mls/ hr IVPB Q8 [facility] PRN Reason: Protocol Last Admin: 11/27/17 09:47 Dose: 100 mls/hr Vancomycin HCl 1 gm/ Sodium (Chloride) 250 mls @ 166.667 mls/hr IVPB DAILY [facility] PRN Reason: Protocol Last Admin: 11/27/17 08:53 Dose: 166.667 mls/hr Insulin Human Lispro (Humalog) 0 units SC ACHS [facility] PRN Reason: Protocol Last Admin: 11/27/17 09:03 Dose: 1 u Lactobacillus Acidophilus (Bacid Acidophilus) 1 cap PO BID [facility] Last Admin: 11/27/17 08:59 Dose: 1 cap Lidocaine (Lidoderm) 1 ea TD DAILY [facility] Last Admin: 11/27/17 09:05 Dose: 1 ea Losartan Potassium (Cozaar) 100 mg PO DAILY [facility] Last Admin: 11/27/17 08:51 Dose: 100 mg Saccharomyces Boulardii (Florastor) 250 mg PO BID [facility] Last Admin: 11/27/17 08:52 Dose: 250 mg Sitagliptin Phosphate (Januvia) 50 mg PO DAILY [facility] Last Admin: 11/27/17 09:05 Dose: 50 mg Tramadol HCl (Ultram) 50 mg PO Q4 PRN PRN Reason: For pain scale 4-10 Last Admin: 11/26/17 15:21 Dose: 50 mg - Labs Labs: 11/27/17 06:10 11/27/17 06:10 PT 11.4 Seconds (9.8-13.1) 11/27/17 06:10 INR 1.0 (0.9-1.2) 11/27/17 06:10 APTT 33.6 Seconds (25.6-37.1) 11/27/17 06:10 - Constitutional Appears: Non-toxic, Chronically Ill - Head Exam Head Exam: NORMOCEPHALIC - Eye Exam Eye Exam: PERRL - ENT Exam ENT Exam: Mucous Membranes Dry - Neck Exam Neck Exam: absent: Lymphadenopathy - Respiratory Exam Respiratory Exam: Decreased Breath Sounds - Cardiovascular Exam Cardiovascular Exam: REGULAR RHYTHM - GI/Abdominal Exam GI & Abdominal Exam: Distended, Soft - Rectal Exam Rectal Exam: Deferred - Exam Exam: NORMAL INSPECTION Assessment and Plan (1) Gangrene of foot Status: Acute (2) PVD (peripheral vascular disease) with claudication Status: Chronic (3) KENNY (acute kidney injury) Status: Acute (4) Chronic osteomyelitis of right foot Status: Acute
--- NOTE | 2017-11-27 12:20 | CP.PCM.PN ---
Subjective - Date & Time of Evaluation Date of Evaluation: 11/27/17 Time of Evaluation: 12:20 - Subjective Subjective: pt comfortable this mornign denies pain no cp, sob awaiting surgery in AM Objective - Vital Signs/Intake and Output Vital Signs (last 24 hours): Temp Pulse Resp BP Pulse Ox 97.6 F 73 18 161/56 H 98 11/27/17 07:54 11/27/17 08:52 11/27/17 07:54 11/27/17 08:52 11/27/17 07:54 Intake and Output: Vitals Reviewed GEN: WDWN, alert, cooperative HEENT: NCAT, PERRL, EOMI HEART: RRR, +S1S2, NO MRG LUNG: CTAB, NO WRR ABD: soft, NT, ND, No HSM, No masses EXT: normal pedal pulses, normal capillary refill NEURO: awake, alert SKIN: warm, dry PSYCH: normal mood, normal affect - Medications Medications: Current Medications Amlodipine Besylate (Norvasc) 10 mg PO DAILY [facility] Last Admin: 11/27/17 08:52 Dose: 10 mg Aspirin (Ecotrin) 81 mg PO DAILY [facility] Last Admin: 11/26/17 09:27 Dose: 81 mg Cilostazol (Pletal) 50 mg PO DAILY [facility] Last Admin: 11/27/17 08:53 Dose: 50 mg Clopidogrel Bisulfate (Plavix) 75 mg PO DAILY [facility] Last Admin: 11/26/17 09:28 Dose: 75 mg Enoxaparin Sodium (Lovenox) 30 mg SC DAILY [facility] PRN Reason: Protocol Last Admin: 11/27/17 09:06 Dose: 30 mg Ergocalciferol (Drisdol 50,000 Intl Units Cap) 1 cap PO Q7D [facility] Last Admin: 11/20/17 15:22 Dose: 1 cap Famotidine (Pepcid) 20 mg PO BID [facility] Last Admin: 11/27/17 08:53 Dose: 20 mg Ferrous Sulfate (Feosol) 325 mg PO BID [facility] Last Admin: 11/27/17 08:52 Dose: 325 mg Piperacillin Sod/Tazobactam (Sod 3.375 gm/ Sodium Chloride) 100 mls @ 100 mls/ hr IVPB Q8 [facility] PRN Reason: Protocol Last Admin: 11/27/17 09:47 Dose: 100 mls/hr Vancomycin HCl 1 gm/ Sodium (Chloride) 250 mls @ 166.667 mls/hr IVPB DAILY [facility] PRN Reason: Protocol Last Admin: 11/27/17 08:53 Dose: 166.667 mls/hr Insulin Human Lispro (Humalog) 0 units SC ACHS [facility] PRN Reason: Protocol Last Admin: 11/27/17 09:03 Dose: 1 u Lactobacillus Acidophilus (Bacid Acidophilus) 1 cap PO BID [facility] Last Admin: 11/27/17 08:59 Dose: 1 cap Lidocaine (Lidoderm) 1 ea TD DAILY [facility] Last Admin: 11/27/17 09:05 Dose: 1 ea Losartan Potassium (Cozaar) 100 mg PO DAILY [facility] Last Admin: 11/27/17 08:51 Dose: 100 mg Saccharomyces Boulardii (Florastor) 250 mg PO BID [facility] Last Admin: 11/27/17 08:52 Dose: 250 mg Sitagliptin Phosphate (Januvia) 50 mg PO DAILY [facility] Last Admin: 11/27/17 09:05 Dose: 50 mg Tramadol HCl (Ultram) 50 mg PO Q4 PRN PRN Reason: For pain scale 4-10 Last Admin: 11/26/17 15:21 Dose: 50 mg - Labs Labs: 11/27/17 06:10 11/27/17 06:10 PT 11.4 Seconds (9.8-13.1) 11/27/17 06:10 INR 1.0 (0.9-1.2) 11/27/17 06:10 APTT 33.6 Seconds (25.6-37.1) 11/27/17 06:10 Assessment and Plan - Assessment and Plan (Free Text) Plan: 87 y/o male with PMH of HTN, HLD, DM, PVD s/p L TMA and R 1st and 2nd toe amputations, presented to the ED from Dr. Taylor's office bec of worsening sharp R foot pain and gangrene. 11/22 : s/p FRAME OPERATOR/Atherectomy of long SFA done by Dr Jiménez at [facility] 1. PVD with Gangrenous Foot, right s/p FRAME OPERATOR/Atherectomy long SFA - Podiatry consulted: Dr. Taylor, (patient's primary Network Development Coordinator)- plan for Right transmetatarsal amputation on Monday -ID consulted- DR Buck - cont IV Vanco and Zosyn -Wound C/s: Stenotrophomonas & Corynebacterium - pain control - cont ASA, Plavix, ARB , Cilostazol and Statin - Cardiac clearance per Dr. Jiménez - Medically stable for procedure, low risk for moderate risk procedure. METS > 4 , no dyspnea or chest pain at rest or on exertion. 2. Hypertension - continue Amlodipine and Losartan - Increase Losartan to 100mg daily 3. DM type II - continue Januvia, accuchecks and ISS 4. Azotemia, dehydration resolved with IVF hydration 5. Anemia of chronic Dis - started Ferrous sulfate - stable H/H 6. DVT proph - Lovenox
[2017-11-27] MEDS: Ergocalciferol 50,000 Intl Units Cap PO SCH (16:50)
[2017-11-28] MEDS: Piperacillin/Tazobact 3.375 GM in Sodium Chloride 0.9% 100 ML IVPB SCH ×3 (01:02→16:07)
[2017-11-28] MEDS: Insulin Lispro (humaLOG) 100 Units/ml Inj SC SCH ×4 (07:10→21:37)
--- NOTE | 2017-11-28 07:31 | CP.PCM.PN ---
Subjective - Date & Time of Evaluation Date of Evaluation: 11/28/17 Time of Evaluation: 07:31 - Subjective Subjective: Podiatry - Dr. Burrell 87 year old male patient seen and evaluated at bedside this AM for right forefoot gangrene. Patient resting comfortably, NAD. No acute events overnight. Denies any pain to RLE. Patient is aware he is scheduled for right foot TMA today. NPO confirmed. Denies N/V/F/D/C/SOB/GUAJARDO/dizziness. Objective - Vital Signs/Intake and Output Vital Signs (last 24 hours): Temp Pulse Resp BP Pulse Ox 98.7 F 92 H 19 131/63 99 11/27/17 23:48 11/27/17 23:48 11/27/17 23:48 11/27/17 23:48 11/27/17 23:48 - Medications Medications: Current Medications Amlodipine Besylate (Norvasc) 10 mg PO DAILY [facility] Last Admin: 11/27/17 08:52 Dose: 10 mg Aspirin (Ecotrin) 81 mg PO DAILY [facility] Last Admin: 11/26/17 09:27 Dose: 81 mg Cilostazol (Pletal) 50 mg PO DAILY [facility] Last Admin: 11/27/17 08:53 Dose: 50 mg Clopidogrel Bisulfate (Plavix) 75 mg PO DAILY [facility] Last Admin: 11/26/17 09:28 Dose: 75 mg Enoxaparin Sodium (Lovenox) 30 mg SC DAILY [facility] PRN Reason: Protocol Last Admin: 11/27/17 09:06 Dose: 30 mg Ergocalciferol (Drisdol 50,000 Intl Units Cap) 1 cap PO Q7D [facility] Last Admin: 11/27/17 16:50 Dose: 1 cap Famotidine (Pepcid) 20 mg PO BID [facility] Last Admin: 11/27/17 16:51 Dose: 20 mg Ferrous Sulfate (Feosol) 325 mg PO BID [facility] Last Admin: 11/27/17 16:50 Dose: 325 mg Piperacillin Sod/Tazobactam (Sod 3.375 gm/ Sodium Chloride) 100 mls @ 100 mls/ hr IVPB Q8 [facility] PRN Reason: Protocol Last Admin: 11/28/17 01:02 Dose: 100 mls/hr Vancomycin HCl 1 gm/ Sodium (Chloride) 250 mls @ 166.667 mls/hr IVPB DAILY [facility] PRN Reason: Protocol Last Admin: 11/27/17 08:53 Dose: 166.667 mls/hr Insulin Human Lispro (Humalog) 0 units SC ACHS [facility] PRN Reason: Protocol Last Admin: 11/28/17 07:10 Dose: Not Given Lactobacillus Acidophilus (Bacid Acidophilus) 1 cap PO BID [facility] Last Admin: 11/27/17 16:50 Dose: 1 cap Lidocaine (Lidoderm) 1 ea TD DAILY [facility] Last Admin: 11/27/17 09:05 Dose: 1 ea Losartan Potassium (Cozaar) 100 mg PO DAILY [facility] Last Admin: 11/27/17 08:51 Dose: 100 mg Saccharomyces Boulardii (Florastor) 250 mg PO BID [facility] Last Admin: 11/27/17 16:50 Dose: 250 mg Sitagliptin Phosphate (Januvia) 50 mg PO DAILY [facility] Last Admin: 11/27/17 09:05 Dose: 50 mg Tramadol HCl (Ultram) 50 mg PO Q4 PRN PRN Reason: For pain scale 4-10 Last Admin: 11/26/17 15:21 Dose: 50 mg - Labs Labs: 11/27/17 06:10 11/27/17 06:10 PT 11.4 Seconds (9.8-13.1) 11/27/17 06:10 INR 1.0 (0.9-1.2) 11/27/17 06:10 APTT 33.6 Seconds (25.6-37.1) 11/27/17 06:10 - Constitutional Appears: Well, Non-toxic, No Acute Distress - Extremities Exam Additional comments: Right LE focused exam Dressing to RLE clean/dry/intact with no strikethrough noted. Vasc: DP/PT pulses non palpable. Temp gradient cool to cool from proximal to distal, Cap refill time to the digits as well as plantar forefoot and midfoot appears sluggish and delayed > 3 sec. Mild forefoot pedal edema noted accompanied by minimal hyperemic erythema extending to the midfoot Derm: Previous surgical site noted to distal medial aspect of right foot which shows full thickness necrosis extending to 3rd digit with hyperpigmented changes , surgical sutures observed at the proximal end of the wound, Wound base appears fully necrotic and dry with no balaji wound maceration, No fluctuance, no purulence, no active drainage, faint malodor noted Neuro: Protective sensation grossly diminished Ortho: Tenderness to palpation along surgical site. 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 Nye Afebrile Right foot XR: no soft tissue emphysema, no acute changes showing OM Continue local wound care: betadine, DSD Vascular: s/p HEATING ELEMENT REPAIRER/atherectomy of SFA calcified lesion with gradient of 40 mm Hg Ok to proceed with right foot TMA per Dr. Jiménez Patient medically stable for procedure per hospitalist Plan for OR right foot TMA this afternoon, 3PM -Discussed with patient and at length about surgical procedure and post- operative course -NPO confirmed -Aspirin & Plavix held -Lovenox held ID on board - continue Zosyn, Vancomycin Right foot wound culture - stenotrophomonas maltophilia, corynebacterium species Continue multipodus boots at all times in bed Patient may be WBAT to heel in surgical shoe Podiatry will continue to follow
[2017-11-28] MEDS: Lactobacillus Acidophilus 500 MU Cap PO SCH ×2 (08:17→16:05)
[2017-11-28] MEDS: Lidocaine 5% Patch TD SCH (08:19)
[2017-11-28] MEDS: Saccharomyces Boulardi 250 mg Cap PO SCH ×2 (08:19→16:06)
[2017-11-28] MEDS: Cilostazol 50 mg Tab UD PO SCH (08:20)
--- NOTE | 2017-11-28 08:57 | CP.PCM.PN ---
Subjective - Date & Time of Evaluation Date of Evaluation: 11/28/17 Time of Evaluation: 08:56 - Subjective Subjective: plan to OR today for TMA Objective - Vital Signs/Intake and Output Vital Signs (last 24 hours): Temp Pulse Resp BP Pulse Ox 98.8 F 87 19 167/72 H 98 11/28/17 07:42 11/28/17 08:19 11/28/17 07:42 11/28/17 08:19 11/28/17 07:42 - Medications Medications: Current Medications Amlodipine Besylate (Norvasc) 10 mg PO DAILY [facility] Last Admin: 11/28/17 08:19 Dose: 10 mg Aspirin (Ecotrin) 81 mg PO DAILY [facility] Last Admin: 11/26/17 09:27 Dose: 81 mg Cilostazol (Pletal) 50 mg PO DAILY [facility] Last Admin: 11/28/17 08:20 Dose: Not Given Clopidogrel Bisulfate (Plavix) 75 mg PO DAILY [facility] Last Admin: 11/26/17 09:28 Dose: 75 mg Enoxaparin Sodium (Lovenox) 30 mg SC DAILY [facility] PRN Reason: Protocol Last Admin: 11/27/17 09:06 Dose: 30 mg Ergocalciferol (Drisdol 50,000 Intl Units Cap) 1 cap PO Q7D [facility] Last Admin: 11/27/17 16:50 Dose: 1 cap Famotidine (Pepcid) 20 mg PO BID [facility] Last Admin: 11/28/17 08:20 Dose: Not Given Ferrous Sulfate (Feosol) 325 mg PO BID [facility] Last Admin: 11/28/17 08:19 Dose: Not Given Piperacillin Sod/Tazobactam (Sod 3.375 gm/ Sodium Chloride) 100 mls @ 100 mls/ hr IVPB Q8 [facility] PRN Reason: Protocol Last Admin: 11/28/17 08:21 Dose: 100 mls/hr Vancomycin HCl 1 gm/ Sodium (Chloride) 250 mls @ 166.667 mls/hr IVPB DAILY [facility] PRN Reason: Protocol Last Admin: 11/28/17 08:27 Dose: 166.667 mls/hr Dextrose/Sodium Chloride (Dextrose 5%-0.45% Ns 500 Ml) 500 mls @ 60 mls/hr IV .Q8H20M [facility] Stop: 11/29/17 07:51 Last Admin: 11/28/17 08:18 Dose: 60 mls/hr Insulin Human Lispro (Humalog) 0 units SC ACHS [facility] PRN Reason: Protocol Last Admin: 11/28/17 07:10 Dose: Not Given Lactobacillus Acidophilus (Bacid Acidophilus) 1 cap PO BID [facility] Last Admin: 11/28/17 08:17 Dose: Not Given Lidocaine (Lidoderm) 1 ea TD DAILY [facility] Last Admin: 11/28/17 08:19 Dose: 1 ea Losartan Potassium (Cozaar) 100 mg PO DAILY [facility] Last Admin: 11/28/17 08:18 Dose: 100 mg Saccharomyces Boulardii (Florastor) 250 mg PO BID [facility] Last Admin: 11/28/17 08:19 Dose: Not Given Sitagliptin Phosphate (Januvia) 50 mg PO DAILY [facility] Last Admin: 11/28/17 08:19 Dose: Not Given Tramadol HCl (Ultram) 50 mg PO Q4 PRN PRN Reason: For pain scale 4-10 Last Admin: 11/26/17 15:21 Dose: 50 mg - Labs Labs: 11/27/17 06:10 11/27/17 06:10 PT 11.4 Seconds (9.8-13.1) 11/27/17 06:10 INR 1.0 (0.9-1.2) 11/27/17 06:10 APTT 33.6 Seconds (25.6-37.1) 11/27/17 06:10 - Constitutional Appears: Well - Head Exam Head Exam: ATRAUMATIC, NORMAL INSPECTION, NORMOCEPHALIC - Eye Exam Eye Exam: EOMI, Normal appearance, PERRL Pupil Exam: NORMAL ACCOMODATION, PERRL - ENT Exam ENT Exam: Mucous Membranes Moist, Normal Exam - Neck Exam Neck Exam: Full ROM, Normal Inspection. absent: Lymphadenopathy - Respiratory Exam Respiratory Exam: Clear to Ausculation Bilateral, NORMAL BREATHING PATTERN - Cardiovascular Exam Cardiovascular Exam: REGULAR RHYTHM, +S1, +S2. absent: Murmur - GI/Abdominal Exam GI & Abdominal Exam: Soft, Normal Bowel Sounds. absent: Tenderness - Extremities Exam Extremities Exam: Full ROM. absent: Joint Swelling, Pedal Edema Additional comments: pedal pulses doppler +Ve gangrene of RLE - Back Exam Back Exam: NORMAL INSPECTION - Neurological Exam Neurological Exam: Alert, Awake, CN II-XII Intact, Normal Gait, Oriented x3 - Psychiatric Exam Psychiatric exam: Normal Affect, Normal Mood - Skin Skin Exam: Dry, Intact, Normal Color, Warm Assessment and Plan (1) Gangrene of foot Status: Acute (2) PVD (peripheral vascular disease) with claudication Status: Chronic (3) Gangrene of toe of right foot Status: Acute (4) HTN (hypertension) Status: Chronic (5) History of hyperlipidemia Status: Chronic
--- NOTE | 2017-11-28 10:07 | CP.PCM.PN ---
Subjective - Date & Time of Evaluation Date of Evaluation: 11/28/17 Time of Evaluation: 11:30 - Subjective Subjective: Patient seen and examined bedside. Complains of pain to RLE . For OR today for right TMA. Hemodynamically stable, afebrile No acute issues overnight BP 167/72 HR 82 WBC 6.7 Hgb 8.6 Objective - Vital Signs/Intake and Output Vital Signs (last 24 hours): Temp Pulse Resp BP Pulse Ox 98.8 F 87 19 167/72 H 98 11/28/17 07:42 11/28/17 08:19 11/28/17 07:42 11/28/17 08:19 11/28/17 07:42 - Medications Medications: Current Medications Amlodipine Besylate (Norvasc) 10 mg PO DAILY [facility] Last Admin: 11/28/17 08:19 Dose: 10 mg Aspirin (Ecotrin) 81 mg PO DAILY [facility] Last Admin: 11/26/17 09:27 Dose: 81 mg Cilostazol (Pletal) 50 mg PO DAILY [facility] Last Admin: 11/28/17 08:20 Dose: Not Given Clopidogrel Bisulfate (Plavix) 75 mg PO DAILY [facility] Last Admin: 11/26/17 09:28 Dose: 75 mg Enoxaparin Sodium (Lovenox) 30 mg SC DAILY [facility] PRN Reason: Protocol Last Admin: 11/27/17 09:06 Dose: 30 mg Ergocalciferol (Drisdol 50,000 Intl Units Cap) 1 cap PO Q7D [facility] Last Admin: 11/27/17 16:50 Dose: 1 cap Famotidine (Pepcid) 20 mg PO BID [facility] Last Admin: 11/28/17 08:20 Dose: Not Given Ferrous Sulfate (Feosol) 325 mg PO BID [facility] Last Admin: 11/28/17 08:19 Dose: Not Given Piperacillin Sod/Tazobactam (Sod 3.375 gm/ Sodium Chloride) 100 mls @ 100 mls/ hr IVPB Q8 [facility] PRN Reason: Protocol Last Admin: 11/28/17 08:21 Dose: 100 mls/hr Vancomycin HCl 1 gm/ Sodium (Chloride) 250 mls @ 166.667 mls/hr IVPB DAILY [facility] PRN Reason: Protocol Last Admin: 11/28/17 08:27 Dose: 166.667 mls/hr Dextrose/Sodium Chloride (Dextrose 5%-0.45% Ns 500 Ml) 500 mls @ 60 mls/hr IV .Q8H20M [facility] Stop: 11/29/17 07:51 Last Admin: 11/28/17 08:18 Dose: 60 mls/hr Insulin Human Lispro (Humalog) 0 units SC ACHS [facility] PRN Reason: Protocol Last Admin: 11/28/17 07:10 Dose: Not Given Lactobacillus Acidophilus (Bacid Acidophilus) 1 cap PO BID [facility] Last Admin: 11/28/17 08:17 Dose: Not Given Lidocaine (Lidoderm) 1 ea TD DAILY [facility] Last Admin: 11/28/17 08:19 Dose: 1 ea Losartan Potassium (Cozaar) 100 mg PO DAILY [facility] Last Admin: 11/28/17 08:18 Dose: 100 mg Saccharomyces Boulardii (Florastor) 250 mg PO BID [facility] Last Admin: 11/28/17 08:19 Dose: Not Given Sitagliptin Phosphate (Januvia) 50 mg PO DAILY [facility] Last Admin: 11/28/17 08:19 Dose: Not Given Tramadol HCl (Ultram) 50 mg PO Q4 PRN PRN Reason: For pain scale 4-10 Last Admin: 11/26/17 15:21 Dose: 50 mg - Labs Labs: 11/27/17 06:10 11/27/17 06:10 PT 11.4 Seconds (9.8-13.1) 11/27/17 06:10 INR 1.0 (0.9-1.2) 11/27/17 06:10 APTT 33.6 Seconds (25.6-37.1) 11/27/17 06:10 - Constitutional Appears: Non-toxic, No Acute Distress, Cachectic, Chronically Ill - Head Exam Head Exam: ATRAUMATIC, NORMAL INSPECTION, NORMOCEPHALIC - Eye Exam Eye Exam: EOMI, Normal appearance, PERRL Pupil Exam: NORMAL ACCOMODATION - ENT Exam ENT Exam: Mucous Membranes Moist, Normal Exam - Neck Exam Neck Exam: Full ROM, Normal Inspection - Respiratory Exam Respiratory Exam: Clear to Ausculation Bilateral, NORMAL BREATHING PATTERN. absent: Rales, Rhonchi, Wheezes - Cardiovascular Exam Cardiovascular Exam: REGULAR RHYTHM, RRR, +S1, +S2. absent: JVD - GI/Abdominal Exam GI & Abdominal Exam: Soft, Normal Bowel Sounds. absent: Distended, Guarding, Tenderness, Rebound - Rectal Exam Rectal Exam: Deferred - Extremities Exam Extremities Exam: absent: Pedal Edema Additional comments: left TMA stump clean Right big toe to 4th toe gangrene pulses decreased warm to touch - Back Exam Back Exam: NORMAL INSPECTION - Neurological Exam Neurological Exam: Alert, Awake, CN II-XII Intact, Oriented x3 - Psychiatric Exam Psychiatric exam: Normal Affect - Skin Skin Exam: Dry, Warm Assessment and Plan - Assessment and Plan (Free Text) Assessment: 87 y/o male with PMH of HTN, HLD, DM, PVD s/p L TMA and R 1st and 2nd toe amputations, presented to the ED from Dr. Taylor's office because of worsening sharp R foot pain and gangrene to area of amputation.Patient admitted for gangrenous right foot . ID , podiatry and interventional cardiology consulted . Wound cultures reported positive of Stenotrophomonas & Corynebacterium and he was started on Vanco and Zosyn s/p TOBACCO STRIPPER HAND/Atherectomy of long SFA done by Dr Jiménez at [facility] 11/22 Today for OR for right TMA 1. PVD with Gangrenous Foot, right s/p TOBACCO STRIPPER HAND/Atherectomy long SFA podiatry, ID and interventional cardiology consulted cont ASA, Plavix, ARB , Cilostazol and Statin Plan for right TMA amputation today wound C/s: Stenotrophomonas & Corynebacterium cont IV Vanco and Zosyn pain control Will need 7 more days of IV antibiotics post op 2. Hypertension labile continue Amlodipine and Losartan 3. DM type II controlled continue Januvia, accuchecks and ISS 4. Azotemia, dehydration resolved with IVF hydration 5. Anemia of chronic Dis on Ferrous sulfate stable H/H 6. DVT proph hold Lovenox since patient is for OR today
--- NOTE | 2017-11-28 11:46 | CP.PCM.PN ---
Subjective - Date & Time of Evaluation Date of Evaluation: 11/28/17 Time of Evaluation: 09:00 - Subjective Subjective: going for OR TMA to cont antibiotics 7 days post op Objective - Vital Signs/Intake and Output Vital Signs (last 24 hours): Temp Pulse Resp BP Pulse Ox 98.8 F 87 19 167/72 H 98 11/28/17 07:42 11/28/17 08:19 11/28/17 07:42 11/28/17 08:19 11/28/17 07:42 - Medications Medications: Current Medications Amlodipine Besylate (Norvasc) 10 mg PO DAILY [facility] Last Admin: 11/28/17 08:19 Dose: 10 mg Aspirin (Ecotrin) 81 mg PO DAILY [facility] Last Admin: 11/26/17 09:27 Dose: 81 mg Cilostazol (Pletal) 50 mg PO DAILY [facility] Last Admin: 11/28/17 08:20 Dose: Not Given Clopidogrel Bisulfate (Plavix) 75 mg PO DAILY [facility] Last Admin: 11/26/17 09:28 Dose: 75 mg Enoxaparin Sodium (Lovenox) 30 mg SC DAILY [facility] PRN Reason: Protocol Last Admin: 11/27/17 09:06 Dose: 30 mg Ergocalciferol (Drisdol 50,000 Intl Units Cap) 1 cap PO Q7D [facility] Last Admin: 11/27/17 16:50 Dose: 1 cap Famotidine (Pepcid) 20 mg PO BID [facility] Last Admin: 11/28/17 08:20 Dose: Not Given Ferrous Sulfate (Feosol) 325 mg PO BID [facility] Last Admin: 11/28/17 08:19 Dose: Not Given Piperacillin Sod/Tazobactam (Sod 3.375 gm/ Sodium Chloride) 100 mls @ 100 mls/ hr IVPB Q8 [facility] PRN Reason: Protocol Last Admin: 11/28/17 08:21 Dose: 100 mls/hr Vancomycin HCl 1 gm/ Sodium (Chloride) 250 mls @ 166.667 mls/hr IVPB DAILY [facility] PRN Reason: Protocol Last Admin: 11/28/17 08:27 Dose: 166.667 mls/hr Dextrose/Sodium Chloride (Dextrose 5%-0.45% Ns 500 Ml) 500 mls @ 60 mls/hr IV .Q8H20M [facility] Stop: 11/29/17 07:51 Last Admin: 11/28/17 08:18 Dose: 60 mls/hr Insulin Human Lispro (Humalog) 0 units SC ACHS [facility] PRN Reason: Protocol Last Admin: 11/28/17 11:21 Dose: Not Given Lactobacillus Acidophilus (Bacid Acidophilus) 1 cap PO BID [facility] Last Admin: 11/28/17 08:17 Dose: Not Given Lidocaine (Lidoderm) 1 ea TD DAILY [facility] Last Admin: 11/28/17 08:19 Dose: 1 ea Losartan Potassium (Cozaar) 100 mg PO DAILY [facility] Last Admin: 11/28/17 08:18 Dose: 100 mg Saccharomyces Boulardii (Florastor) 250 mg PO BID [facility] Last Admin: 11/28/17 08:19 Dose: Not Given Sitagliptin Phosphate (Januvia) 50 mg PO DAILY [facility] Last Admin: 11/28/17 08:19 Dose: Not Given Tramadol HCl (Ultram) 50 mg PO Q4 PRN PRN Reason: For pain scale 4-10 Last Admin: 11/28/17 11:18 Dose: 50 mg - Labs Labs: 11/27/17 06:10 11/27/17 06:10 PT 11.4 Seconds (9.8-13.1) 11/27/17 06:10 INR 1.0 (0.9-1.2) 11/27/17 06:10 APTT 33.6 Seconds (25.6-37.1) 11/27/17 06:10 - Constitutional Appears: Non-toxic, Chronically Ill - Head Exam Head Exam: NORMOCEPHALIC - Eye Exam Eye Exam: PERRL - ENT Exam ENT Exam: Mucous Membranes Dry - Neck Exam Neck Exam: absent: Lymphadenopathy - Respiratory Exam Respiratory Exam: Decreased Breath Sounds - Cardiovascular Exam Cardiovascular Exam: REGULAR RHYTHM - GI/Abdominal Exam GI & Abdominal Exam: Distended, Soft - Rectal Exam Rectal Exam: Deferred - Exam Exam: NORMAL INSPECTION - Extremities Exam Extremities Exam: Pedal Edema. absent: Calf Tenderness - Back Exam Back Exam: absent: CVA tenderness (L), CVA tenderness (R) - Neurological Exam Neurological Exam: Alert, Awake, CN II-XII Intact, Oriented x3 - Psychiatric Exam Psychiatric exam: Normal Mood - Skin Skin Exam: absent: Dry Assessment and Plan (1) Gangrene of foot Status: Acute (2) PVD (peripheral vascular disease) with claudication Status: Chronic (3) KENNY (acute kidney injury) Status: Acute (4) Chronic osteomyelitis of right foot Status: Acute - Assessment and Plan (Free Text) Assessment: cont antibiotics for 7 days post op- possible PO Options
[2017-11-28 12:25] LABS: INR 1.1 (0.9-1.2); PARTIAL THROMBOPLASTIN TIME 33.6 Seconds (25.6-37.1); PROTHROMBIN TIME 12.2 Seconds (9.8-13.1)
[2017-11-28] MEDS ORDERED: Bupivacaine 0.5% Inj(30mL) IJ ONE (14:59)
[2017-11-28] MEDS ORDERED: Lidocaine 1% Inj (20ml) IJ ONE (14:59)
[2017-11-28] MEDS ORDERED: Dextrose 5%/0.9% NS 1,000 ML IV SCH (15:00)
[2017-11-28] MEDS ORDERED: ceFAZolin IV 2 gm in Dextrose 0 GM/0 ML BAG IVPB ONE (15:08)
[2017-11-28] MEDS ORDERED: Bupivacaine HCl 0.5% PF (30 ml) Inj ONE (15:08)
[2017-11-28] MEDS ORDERED: Midazolam 2 MG/2 ML VIAL ONE (15:28)
[2017-11-28] MEDS ORDERED: Propofol 10 mg/ml Inj (20 ML) ONE (15:28)
[2017-11-28] MEDS ORDERED: Lidocaine 2% Inj (20ml) IJ ONE (15:40)
[2017-11-28] MEDS ORDERED: Piperacillin/Tazobact 3.375 gm Inj IVPB ONE (15:40)
[2017-11-28] MEDS ORDERED: ePHEDrine 50 mg/ml Inj ONE (15:46)
[2017-11-28] MEDS ORDERED: Sodium Chloride 0.9% 1,000 ML IV ONE (16:07)
--- NOTE | 2017-11-28 16:47 | PCM.SURG1 ---
Surgeon's Initial Post Op Note - Surgeon's Notes Surgeon: Dr. Nye Radio Division Captain: Dr. Cookie Wilhelm PGY-1, Dr. Nery Curiel PGY-2 Type of Anesthesia: General LMA, Local Anesthesia Administered By: Dr. Petit Pre-Operative Diagnosis: right forefoot gangrene Operative Findings: see operative report. I: 16cc 1:1 mix 2% Lidocaine plain and 0.5% Marcaine plain. M: 3-0 Prolene, [place] drain Post-Operative Diagnosis: same Operation Performed: right foot transmetatarsal amputation Specimen/Specimens Removed: right forefoot soft tissue and bone Estimated Blood Loss: EBL {In ML}: 100 Blood Products Given: N/A Drains Used: Radha Post-Op Condition: Good Date of Surgery/Procedure: 11/28/17 Time of Surgery/Procedure: 16:50
[2017-11-28] MEDS ORDERED: Sodium Chloride 0.9% 1,000 ML IV PRN (16:48)
[2017-11-28] MEDS: HYDROmorphone 0.5 mg/0.5 ml ISec IVP PRN ×2 (17:03→17:30)
[2017-11-28] MEDS ORDERED: HYDROmorphone 0.5 mg/0.5 ml ISec ONE (17:03)
--- NOTE | 2017-11-28 18:50 | RAD ---
PROCEDURE: Right Foot Radiographs. HISTORY: s/p right TMA COMPARISON: Preoperative study 11/20/2017. FINDINGS: BONES: Expected postoperative findings following trans metatarsal ectomy. Surgical drains identified. JOINTS: Normal. SOFT TISSUES: Soft tissue swelling at the surgical sites. OTHER FINDINGS: None. IMPRESSION: Satisfactory postoperative status.
[2017-11-28] MEDS ORDERED: Oxycodone/Acetaminophen 5/325 mg Tab PO ONE (23:36)
[2017-11-29] MEDS: Piperacillin/Tazobact 3.375 GM in Sodium Chloride 0.9% 100 ML IVPB SCH ×3 (00:57→18:51)
[2017-11-29] MEDS ORDERED: Oxycodone/Acetaminophen 5/325 mg Tab PO PRN ×3 (04:07→10:13)
[2017-11-29] MEDS ORDERED: Oxycodone/Acetaminophen 5/325 mg Tab PO ONE (04:19)
[2017-11-29 06:12] LABS: HEMOGLOBIN 7.8 g/dL (12.0-18.0); MEAN CELL VOLUME 88.4 fl (80.0-94.0); MEAN CORPUSCULAR HEMOGLOBIN 28.6 pg (27.0-31.0); MEAN CORPUSCULAR HGB CONC 32.3 g/dL (33.0-37.0); RBC 2.73 Mil/uL (4.40-5.90); RED CELL DISTRIBUTION WIDTH 14.7 % (11.5-14.5); WHITE BLOOD COUNT 10.7 K/uL (4.8-10.8)
[2017-11-29] MEDS: Insulin Lispro (humaLOG) 100 Units/ml Inj SC SCH ×4 (07:28→22:10)
--- NOTE | 2017-11-29 08:45 | CP.PCM.PN ---
Subjective - Date & Time of Evaluation Date of Evaluation: 11/29/17 Time of Evaluation: 08:45 - Subjective Subjective: Podiatry - Dr. Burrell 87 year old male patient seen and evaluated at bedside POD#1 right foot transmetatarsal amputation. NAD. present at bedside. Patient states he was not able to sleep well overnight due to the pain at surgical site. Dressing clean/dry/intact. Denies N/V/F/D/C/SOB/GUAJARDO/dizziness. Objective - Vital Signs/Intake and Output Vital Signs (last 24 hours): Temp Pulse Resp BP Pulse Ox 97.5 F L 89 19 123/63 98 11/29/17 07:48 11/29/17 07:48 11/29/17 07:48 11/29/17 07:48 11/29/17 07:48 - Medications Medications: Current Medications Amlodipine Besylate (Norvasc) 10 mg PO DAILY [facility] Last Admin: 11/28/17 08:19 Dose: 10 mg Aspirin (Ecotrin) 81 mg PO DAILY [facility] Last Admin: 11/26/17 09:27 Dose: 81 mg Cilostazol (Pletal) 50 mg PO DAILY [facility] Last Admin: 11/28/17 08:20 Dose: Not Given Clopidogrel Bisulfate (Plavix) 75 mg PO DAILY [facility] Last Admin: 11/26/17 09:28 Dose: 75 mg Enoxaparin Sodium (Lovenox) 30 mg SC DAILY [facility] PRN Reason: Protocol Last Admin: 11/27/17 09:06 Dose: 30 mg Ergocalciferol (Drisdol 50,000 Intl Units Cap) 1 cap PO Q7D [facility] Last Admin: 11/27/17 16:50 Dose: 1 cap Famotidine (Pepcid) 20 mg PO BID [facility] Last Admin: 11/28/17 16:06 Dose: Not Given Ferrous Sulfate (Feosol) 325 mg PO BID [facility] Last Admin: 11/28/17 16:06 Dose: Not Given Piperacillin Sod/Tazobactam (Sod 3.375 gm/ Sodium Chloride) 100 mls @ 100 mls/ hr IVPB Q8 [facility] PRN Reason: Protocol Last Admin: 11/29/17 00:57 Dose: 100 mls/hr Vancomycin HCl 1 gm/ Sodium (Chloride) 250 mls @ 166.667 mls/hr IVPB DAILY [facility] PRN Reason: Protocol Last Admin: 11/28/17 08:27 Dose: 166.667 mls/hr Dextrose/Sodium Chloride (Dextrose 5%/0.9% Ns 1000 Ml) 1,000 mls @ 0 mls/hr IV .Q0M [facility] PRN Reason: Per Protocol Stop: 11/29/17 15:00 Sodium Chloride (Sodium Chloride 0.9%) 1,000 mls @ 1,000 mls/hr IV .Q1H PRN PRN Reason: Hypotension Insulin Human Lispro (Humalog) 0 units SC ACHS [facility] PRN Reason: Protocol Last Admin: 11/29/17 07:28 Dose: Not Given Lactobacillus Acidophilus (Bacid Acidophilus) 1 cap PO BID [facility] Last Admin: 11/28/17 16:05 Dose: Not Given Lidocaine (Lidoderm) 1 ea TD DAILY [facility] Last Admin: 11/28/17 08:19 Dose: 1 ea Losartan Potassium (Cozaar) 100 mg PO DAILY [facility] Last Admin: 11/28/17 08:18 Dose: 100 mg Oxycodone/Acetaminophen (Percocet 5/325 Mg Tab) 1 tab PO Q6 PRN PRN Reason: Pain, moderate (4-7) Stop: 12/02/17 04:09 Saccharomyces Boulardii (Florastor) 250 mg PO BID [facility] Last Admin: 11/28/17 16:06 Dose: Not Given Sitagliptin Phosphate (Januvia) 50 mg PO DAILY [facility] Last Admin: 11/28/17 08:19 Dose: Not Given Tramadol HCl (Ultram) 50 mg PO Q4 PRN PRN Reason: For pain scale 4-10 Last Admin: 11/28/17 22:27 Dose: 50 mg - Labs Labs: 11/29/17 05:45 11/29/17 05:45 PT 12.2 Seconds (9.8-13.1) 11/28/17 10:45 INR 1.1 (0.9-1.2) 11/28/17 10:45 APTT 33.6 Seconds (25.6-37.1) 11/28/17 10:45 - Constitutional Appears: Well, Non-toxic, No Acute Distress - Extremities Exam Additional comments: Right LE focused exam Dressing to RLE clean/dry/intact with no strikethrough noted. Radha drain in place. Vasc: DP/PT pulses non palpable. Temp gradient warm to warm from proximal to distal. Nonpitting edema noted proximally to surgical site Derm: Surgical incision noted at distal TMA stump appears to be well-coapted with sutures intact and no wound dehiscence noted. No periwound pallor present. No drainage noted. No purulence noted. Neuro: Protective sensation grossly diminished Ortho: s/p transmetatarsal amputation. Pain on palpation surrounding surgical site. No pain upon calf squeeze. - Neurological Exam Neurological Exam: Alert, Awake, Oriented x3 - Psychiatric Exam Psychiatric exam: Normal Affect, Normal Mood Assessment and Plan - Assessment and Plan (Free Text) Assessment: 87 year old male POD#1 right transmetatarsal amputation (DOS 11/28/17) Plan: Patient seen and evaluated Discussed with attending, Dr. 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
[2017-11-29] MEDS: Saccharomyces Boulardi 250 mg Cap PO SCH ×2 (08:52→17:18)
[2017-11-29] MEDS: Cilostazol 50 mg Tab UD PO SCH (08:53)
[2017-11-29] MEDS: Lactobacillus Acidophilus 500 MU Cap PO SCH ×2 (10:00→17:23)
[2017-11-29] MEDS: Lidocaine 5% Patch TD SCH (10:00)
--- NOTE | 2017-11-29 10:04 | CP.PCM.PN ---
Subjective - Date & Time of Evaluation Date of Evaluation: 11/29/17 Time of Evaluation: 11:30 - Subjective Subjective: Patient seen and examined bedside. Elderly male , cachetic , chronically ill lying in bed in NAD. Complains of pain to RLE and pruritus Post right TMA day 1. Hemodynamically stable, afebrile No acute issues overnight Hgb 7.8 WBC 10.7 Objective - Vital Signs/Intake and Output Vital Signs (last 24 hours): Temp Pulse Resp BP Pulse Ox 97.5 F L 89 19 123/63 98 11/29/17 07:48 11/29/17 08:54 11/29/17 07:48 11/29/17 08:54 11/29/17 07:48 - Medications Medications: Current Medications Amlodipine Besylate (Norvasc) 10 mg PO DAILY [facility] Last Admin: 11/29/17 08:54 Dose: 10 mg Aspirin (Ecotrin) 81 mg PO DAILY [facility] Last Admin: 11/26/17 09:27 Dose: 81 mg Cilostazol (Pletal) 50 mg PO DAILY [facility] Last Admin: 11/29/17 08:53 Dose: 50 mg Clopidogrel Bisulfate (Plavix) 75 mg PO DAILY [facility] Last Admin: 11/26/17 09:28 Dose: 75 mg Enoxaparin Sodium (Lovenox) 30 mg SC DAILY [facility] PRN Reason: Protocol Last Admin: 11/27/17 09:06 Dose: 30 mg Ergocalciferol (Drisdol 50,000 Intl Units Cap) 1 cap PO Q7D [facility] Last Admin: 11/27/17 16:50 Dose: 1 cap Famotidine (Pepcid) 20 mg PO BID [facility] Last Admin: 11/29/17 08:53 Dose: 20 mg Ferrous Sulfate (Feosol) 325 mg PO BID [facility] Last Admin: 11/29/17 08:52 Dose: 325 mg Piperacillin Sod/Tazobactam (Sod 3.375 gm/ Sodium Chloride) 100 mls @ 100 mls/ hr IVPB Q8 [facility] PRN Reason: Protocol Last Admin: 11/29/17 09:10 Dose: 100 mls/hr Vancomycin HCl 1 gm/ Sodium (Chloride) 250 mls @ 166.667 mls/hr IVPB DAILY [facility] PRN Reason: Protocol Last Admin: 11/29/17 08:58 Dose: 166.667 mls/hr Dextrose/Sodium Chloride (Dextrose 5%/0.9% Ns 1000 Ml) 1,000 mls @ 0 mls/hr IV .Q0M [facility] PRN Reason: Per Protocol Stop: 11/29/17 15:00 Sodium Chloride (Sodium Chloride 0.9%) 1,000 mls @ 1,000 mls/hr IV .Q1H PRN PRN Reason: Hypotension Insulin Human Lispro (Humalog) 0 units SC ACHS [facility] PRN Reason: Protocol Last Admin: 11/29/17 07:28 Dose: Not Given Lactobacillus Acidophilus (Bacid Acidophilus) 1 cap PO BID [facility] Last Admin: 11/28/17 16:05 Dose: Not Given Lidocaine (Lidoderm) 1 ea TD DAILY [facility] Last Admin: 11/28/17 08:19 Dose: 1 ea Losartan Potassium (Cozaar) 100 mg PO DAILY [facility] Last Admin: 11/29/17 08:53 Dose: 100 mg Oxycodone/Acetaminophen (Percocet 5/325 Mg Tab) 1 tab PO Q6 PRN PRN Reason: Pain, moderate (4-7) Stop: 12/02/17 04:09 Saccharomyces Boulardii (Florastor) 250 mg PO BID [facility] Last Admin: 11/29/17 08:52 Dose: 250 mg Sitagliptin Phosphate (Januvia) 50 mg PO DAILY [facility] Last Admin: 11/29/17 08:53 Dose: 50 mg Tramadol HCl (Ultram) 50 mg PO Q4 PRN PRN Reason: For pain scale 4-10 Last Admin: 11/29/17 08:50 Dose: 50 mg - Labs Labs: 11/29/17 05:45 11/29/17 05:45 PT 12.2 Seconds (9.8-13.1) 11/28/17 10:45 INR 1.1 (0.9-1.2) 11/28/17 10:45 APTT 33.6 Seconds (25.6-37.1) 11/28/17 10:45 - Constitutional Appears: Non-toxic, No Acute Distress, Cachectic, Chronically Ill - Head Exam Head Exam: ATRAUMATIC, NORMAL INSPECTION, NORMOCEPHALIC - Eye Exam Eye Exam: EOMI, Normal appearance, PERRL Pupil Exam: NORMAL ACCOMODATION - ENT Exam ENT Exam: Mucous Membranes Moist, Normal Exam - Neck Exam Neck Exam: Full ROM, Normal Inspection - Respiratory Exam Respiratory Exam: Clear to Ausculation Bilateral, NORMAL BREATHING PATTERN. absent: Rales, Rhonchi, Wheezes - Cardiovascular Exam Cardiovascular Exam: REGULAR RHYTHM, RRR, +S1, +S2. absent: JVD - GI/Abdominal Exam GI & Abdominal Exam: Soft, Normal Bowel Sounds. absent: Distended, Guarding, Tenderness, Rebound - Rectal Exam Rectal Exam: Deferred - Extremities Exam Extremities Exam: absent: Pedal Edema Additional comments: left TMA scar Right fresh wound TMa with dressings in place - Back Exam Back Exam: NORMAL INSPECTION - Neurological Exam Neurological Exam: Alert, Awake, CN II-XII Intact - Psychiatric Exam Psychiatric exam: Normal Affect - Skin Skin Exam: Dry, Warm Assessment and Plan - Assessment and Plan (Free Text) Assessment: 87 y/o male with PMH of HTN, HLD, DM, PVD s/p L TMA and R 1st and 2nd toe amputations, presented to the ED from Dr. Taylor's office because of worsening sharp R foot pain and gangrene to area of amputation.Patient admitted for gangrenous right foot . ID , podiatry and interventional cardiology consulted . Wound cultures reported positive of Stenotrophomonas & Corynebacterium and he was started on Vanco and Zosyn s/p FLEET SALES ASSOCIATE/Atherectomy of long SFA done by Dr Jiménez at [facility] 11/22 Today post op day 1 after right TMA 1. PVD with Gangrenous Foot, right s/p FLEET SALES ASSOCIATE/Atherectomy long SFA and right TMA podiatry, ID and interventional cardiology consulted s/p right TMA day 1 resume ASA, Plavix, ARB , Cilostazol and Statin wound C/s: Stenotrophomonas & Corynebacterium cont IV Vanco and Zosyn for 7 more days post op as per ID pain control SW consulted for transfer to [facility] Hgb dropped post op to 7.8 . Will transfuse 1 unit PRBc today ( consent obtained from and son as per patient's wishes) 2. Hypertension labile continue Amlodipine and Losartan 3. DM type II controlled continue Januvia, accuchecks and ISS 4. Azotemia, dehydration resolved with IVF hydration 5. Anemia of chronic Dis Hgb dropped to 7.8 today Will transfuse 1 unit PRBC on Ferrous sulfate 6. DVT proph lovenox
--- NOTE | 2017-11-29 11:19 | OP ---
PROCEDURE DATE: 11/28/2017 PREOPERATIVE DIAGNOSIS: Right forefoot gangrene. POSTOPERATIVE DIAGNOSIS: Right forefoot gangrene. NAME OF PROCEDURE: Right foot transmetatarsal amputation with drain placement. SURGEON: Gustavo Burrell DPM ASSISTANTS: Cookie Wilhelm DPM, PGY-1 and Nery Curiel DPM, PGY-2. ANESTHESIOLOGIST: Dr. Petit. TYPE OF ANESTHESIA: General LMA plus local. INDICATIONS: The patient is an 87-year-old male with the above diagnosis. The patient has exhausted all conservative treatment at this time and now requires surgical intervention. The patient has signed a consent after careful explanation of all risks, benefits, complications, and alternatives for surgical procedure. No guarantees were given nor implied. N.p.o. status was confirmed prior to taking the patient to the operating room. PREPARATION: The patient was brought into the operating room and placed on the operating room table in a supine position. A time-out was performed for identification of the correct patient and procedure. After induction of general LMA anesthesia, approximately 16 mL of a 1:1 mixture of 2% lidocaine plain and 0.5% Marcaine plain was injected in an ankle block fashion to the right lower extremity. The right lower extremity was then prepped and draped in normal sterile manner. No tourniquet was used during the procedure. DESCRIPTION OF PROCEDURE: Attention was then directed to the distal aspect of the right forefoot where the third digit was noted to exhibit dark gangrenous changes extending proximal to the level of the third metatarsophalangeal joint. The medial aspect of the fourth digit was also noted to exhibit dusky necrotic skin changes extending to the level of the metatarsophalangeal joint. At this time, a sterile #10 blade was used to create a fish[place] incision circumferentially around the midfoot with the plantar incision made distally to create a longer plantar flap for potential skin closure. The blade was then utilized to free up all tissue from the dorsal and plantar aspect of the metatarsal head and next of metatarsals 1 through 5. Sterile forceps and a pappas elevator were utilized to preserve any healthy soft tissue for potential closure. Periosteum was freed using a pappas elevator from metatarsals 1 through 5. A sagittal saw was then used to resect the fifth metatarsal at the level of the distal diaphysis angled from dorsal to plantar. The step was then repeated for the remaining metatarsals. All devitalized bone and tissue was then passed off the field and sent for pathology. All tendinous structures were surgically excised using sterile forceps and a sterile #10 blade. The plantar and dorsal skin flaps were then debulked of any prominent soft tissue to allow for adequate skin closure. The site was then copiously irrigated with normal saline solution using a bulb syringe. The plantar tissue was then flap up dorsally to cover the distal aspect of the metatarsal head and 3-0 Prolene sutures were utilized to place for tension sutures and reapproximate these skin edges. A Lapel drain was placed at the surgical site exiting from the medial aspect of the surgical incision. The remainder of the transmetatarsal amputation site was reapproximated with 3-0 Prolene sutures. The surgical site was then dressed with Xeroform, abdominal pads, a dry sterile dressing, and a light King bandage. POSTOPERATIVE CONDITION: The patient tolerated the anesthesia and procedure well, escorted to the recovery room with vital signs stable and neurovascular status intact to the right lower extremity. The patient is to remain nonweightbearing to the right lower extremity with the use of a walker. The patient will remain in hospital and Podiatry will continue to follow. Upon discharge, the patient will follow up with Dr. Burrell in the [facility] within one week of discharge. Cookie Wilhelm DPM Gustavo Burrell DPM SANJU
--- NOTE | 2017-11-29 14:03 | CP.PCM.PN ---
Subjective - Date & Time of Evaluation Date of Evaluation: 11/29/17 Time of Evaluation: 08:00 - Subjective Subjective: c/o pain s/p TMA iv rx in progress Objective - Vital Signs/Intake and Output Vital Signs (last 24 hours): Temp Pulse Resp BP Pulse Ox 97.5 F L 89 19 123/63 98 11/29/17 07:48 11/29/17 08:54 11/29/17 07:48 11/29/17 08:54 11/29/17 07:48 - Medications Medications: Current Medications Amlodipine Besylate (Norvasc) 10 mg PO DAILY [facility] Last Admin: 11/29/17 08:54 Dose: 10 mg Aspirin (Ecotrin) 81 mg PO DAILY [facility] Last Admin: 11/26/17 09:27 Dose: 81 mg Cilostazol (Pletal) 50 mg PO DAILY [facility] Last Admin: 11/29/17 08:53 Dose: 50 mg Clopidogrel Bisulfate (Plavix) 75 mg PO DAILY [facility] Last Admin: 11/26/17 09:28 Dose: 75 mg Enoxaparin Sodium (Lovenox) 30 mg SC DAILY [facility] PRN Reason: Protocol Last Admin: 11/27/17 09:06 Dose: 30 mg Ergocalciferol (Drisdol 50,000 Intl Units Cap) 1 cap PO Q7D [facility] Last Admin: 11/27/17 16:50 Dose: 1 cap Famotidine (Pepcid) 20 mg PO BID [facility] Last Admin: 11/29/17 08:53 Dose: 20 mg Ferrous Sulfate (Feosol) 325 mg PO BID [facility] Last Admin: 11/29/17 08:52 Dose: 325 mg Piperacillin Sod/Tazobactam (Sod 3.375 gm/ Sodium Chloride) 100 mls @ 100 mls/ hr IVPB Q8 [facility] PRN Reason: Protocol Last Admin: 11/29/17 09:10 Dose: 100 mls/hr Vancomycin HCl 1 gm/ Sodium (Chloride) 250 mls @ 166.667 mls/hr IVPB DAILY [facility] PRN Reason: Protocol Last Admin: 11/29/17 08:58 Dose: 166.667 mls/hr Dextrose/Sodium Chloride (Dextrose 5%/0.9% Ns 1000 Ml) 1,000 mls @ 0 mls/hr IV .Q0M [facility] PRN Reason: Per Protocol Stop: 11/29/17 15:00 Sodium Chloride (Sodium Chloride 0.9%) 1,000 mls @ 1,000 mls/hr IV .Q1H PRN PRN Reason: Hypotension Insulin Human Lispro (Humalog) 0 units SC ACHS [facility] PRN Reason: Protocol Last Admin: 11/29/17 11:30 Dose: 1 u Lactobacillus Acidophilus (Bacid Acidophilus) 1 cap PO BID [facility] Last Admin: 11/28/17 16:05 Dose: Not Given Lidocaine (Lidoderm) 1 ea TD DAILY [facility] Last Admin: 11/29/17 10:00 Dose: 1 ea Losartan Potassium (Cozaar) 100 mg PO DAILY [facility] Last Admin: 11/29/17 08:53 Dose: 100 mg Morphine Sulfate (Morphine) 1 mg IVP Q6 PRN PRN Reason: Pain, severe (8-10) Oxycodone/Acetaminophen (Percocet 5/325 Mg Tab) 2 tab PO Q6 PRN PRN Reason: Pain, moderate (4-7) Stop: 12/02/17 10:14 Oxycodone/Acetaminophen (Percocet 5/325 Mg Tab) 1 tab PO Q6 PRN PRN Reason: Pain, Mild (1-3) Stop: 12/02/17 04:09 Saccharomyces Boulardii (Florastor) 250 mg PO BID [facility] Last Admin: 11/29/17 08:52 Dose: 250 mg Sitagliptin Phosphate (Januvia) 50 mg PO DAILY [facility] Last Admin: 11/29/17 08:53 Dose: 50 mg Tramadol HCl (Ultram) 50 mg PO Q4 PRN PRN Reason: For pain scale 4-10 Last Admin: 11/29/17 08:50 Dose: 50 mg - Labs Labs: 11/29/17 05:45 11/29/17 05:45 PT 12.2 Seconds (9.8-13.1) 11/28/17 10:45 INR 1.1 (0.9-1.2) 11/28/17 10:45 APTT 33.6 Seconds (25.6-37.1) 11/28/17 10:45 - Constitutional Appears: Non-toxic, Chronically Ill - Head Exam Head Exam: NORMOCEPHALIC - Eye Exam Eye Exam: PERRL - ENT Exam ENT Exam: Mucous Membranes Dry - Neck Exam Neck Exam: absent: Lymphadenopathy - Respiratory Exam Respiratory Exam: Decreased Breath Sounds - Cardiovascular Exam Cardiovascular Exam: REGULAR RHYTHM Assessment and Plan (1) Gangrene of foot Status: Acute (2) PVD (peripheral vascular disease) with claudication Status: Chronic (3) KENNY (acute kidney injury) Status: Acute (4) Chronic osteomyelitis of right foot Status: Acute
[2017-11-30] MEDS: Piperacillin/Tazobact 3.375 GM in Sodium Chloride 0.9% 100 ML IVPB SCH ×4 (01:14→23:59)
[2017-11-30 06:35] LABS: BLOOD UREA NITROGEN 17 mg/dl (9-20); CALCIUM 9.3 mg/dL (8.4-10.2); GFR AFRICAN-AMERICAN > 60; GFR NON-AFRICAN AMERICAN 52
[2017-11-30] MEDS: Insulin Lispro (humaLOG) 100 Units/ml Inj SC SCH ×4 (06:43→22:06)
[2017-11-30 06:48] LABS: HEMOGLOBIN 9.9 g/dL (12.0-18.0); MEAN CELL VOLUME 85.8 fl (80.0-94.0); MEAN CORPUSCULAR HGB CONC 33.8 g/dL (33.0-37.0); RBC 3.41 Mil/uL (4.40-5.90); RED CELL DISTRIBUTION WIDTH 14.5 % (11.5-14.5)
[2017-11-30] MEDS: Lactobacillus Acidophilus 500 MU Cap PO SCH ×2 (08:55→15:59)
[2017-11-30] MEDS: Lidocaine 5% Patch TD SCH (08:56)
[2017-11-30] MEDS: Saccharomyces Boulardi 250 mg Cap PO SCH ×2 (08:56→16:00)
[2017-11-30] MEDS: Cilostazol 50 mg Tab UD PO SCH (08:57)
[2017-11-30] MEDS: Enoxaparin 30 mg Syringe SC SCH (08:57)
[2017-11-30] MEDS: Oxycodone/Acetaminophen 5/325 mg Tab PO PRN ×2 (09:00→15:53)
--- NOTE | 2017-11-30 09:31 | CP.PCM.PN ---
Subjective - Date & Time of Evaluation Date of Evaluation: 11/30/17 Time of Evaluation: 09:00 - Subjective Subjective: Podiatry - Dr. Burrell 87 year old male patient seen and evaluated at bedside POD#2 right foot transmetatarsal amputation. NAD. present at bedside. Patient states pain has decreased, well-controlled on new pain regimen. Admits to occasional itching on the top of his foot. Dressing clean/dry/intact. Denies N/V/F/D/C/SOB/ GUAJARDO/dizziness. Objective - Vital Signs/Intake and Output Vital Signs (last 24 hours): Temp Pulse Resp BP Pulse Ox 99.2 F 108 H 18 104/77 99 11/30/17 08:30 11/30/17 08:56 11/30/17 08:30 11/30/17 08:56 11/30/17 08:30 - Medications Medications: Current Medications Amlodipine Besylate (Norvasc) 10 mg PO DAILY [facility] Last Admin: 11/30/17 08:56 Dose: 10 mg Aspirin (Ecotrin) 81 mg PO DAILY [facility] Last Admin: 11/30/17 08:56 Dose: 81 mg Cilostazol (Pletal) 50 mg PO DAILY [facility] Last Admin: 11/30/17 08:57 Dose: 50 mg Clopidogrel Bisulfate (Plavix) 75 mg PO DAILY [facility] Last Admin: 11/30/17 08:57 Dose: 75 mg Enoxaparin Sodium (Lovenox) 30 mg SC DAILY [facility] PRN Reason: Protocol Last Admin: 11/30/17 08:57 Dose: 30 mg Ergocalciferol (Drisdol 50,000 Intl Units Cap) 1 cap PO Q7D [facility] Last Admin: 11/27/17 16:50 Dose: 1 cap Famotidine (Pepcid) 20 mg PO BID [facility] Last Admin: 11/30/17 08:56 Dose: 20 mg Ferrous Sulfate (Feosol) 325 mg PO BID [facility] Last Admin: 11/30/17 08:56 Dose: 325 mg Piperacillin Sod/Tazobactam (Sod 3.375 gm/ Sodium Chloride) 100 mls @ 100 mls/ hr IVPB Q8 [facility] PRN Reason: Protocol Last Admin: 11/30/17 08:57 Dose: 100 mls/hr Vancomycin HCl 1 gm/ Sodium (Chloride) 250 mls @ 166.667 mls/hr IVPB DAILY [facility] PRN Reason: Protocol Last Admin: 11/29/17 08:58 Dose: 166.667 mls/hr Sodium Chloride (Sodium Chloride 0.9%) 1,000 mls @ 1,000 mls/hr IV .Q1H PRN PRN Reason: Hypotension Insulin Human Lispro (Humalog) 0 units SC ACHS [facility] PRN Reason: Protocol Last Admin: 11/30/17 06:43 Dose: Not Given Lactobacillus Acidophilus (Bacid Acidophilus) 1 cap PO BID [facility] Last Admin: 11/30/17 08:55 Dose: 1 cap Lidocaine (Lidoderm) 1 ea TD DAILY [facility] Last Admin: 11/30/17 08:56 Dose: 1 ea Losartan Potassium (Cozaar) 100 mg PO DAILY [facility] Last Admin: 11/30/17 08:55 Dose: 100 mg Morphine Sulfate (Morphine) 1 mg IVP Q6 PRN PRN Reason: Pain, severe (8-10) Oxycodone/Acetaminophen (Percocet 5/325 Mg Tab) 2 tab PO Q6 PRN PRN Reason: Pain, moderate (4-7) Stop: 12/02/17 10:14 Last Admin: 11/29/17 16:13 Dose: 2 tab Oxycodone/Acetaminophen (Percocet 5/325 Mg Tab) 1 tab PO Q6 PRN PRN Reason: Pain, Mild (1-3) Stop: 12/02/17 04:09 Last Admin: 11/30/17 09:00 Dose: 1 tab Saccharomyces Boulardii (Florastor) 250 mg PO BID [facility] Last Admin: 11/30/17 08:56 Dose: 250 mg Sitagliptin Phosphate (Januvia) 50 mg PO DAILY [facility] Last Admin: 11/30/17 08:56 Dose: 50 mg Tramadol HCl (Ultram) 50 mg PO Q4 PRN PRN Reason: For pain scale 4-10 Last Admin: 11/29/17 08:50 Dose: 50 mg - Labs Labs: 11/30/17 05:45 11/30/17 05:45 PT 12.2 Seconds (9.8-13.1) 11/28/17 10:45 INR 1.1 (0.9-1.2) 11/28/17 10:45 APTT 33.6 Seconds (25.6-37.1) 11/28/17 10:45 - Constitutional Appears: Well, Non-toxic, No Acute Distress - Extremities Exam Additional comments: Right LE focused exam Dressing to RLE clean/dry/intact with no strikethrough noted. Vasc: DP/PT pulses non palpable. Temp gradient warm to warm from proximal to distal. Nonpitting edema noted proximally to surgical site. CFT WNL. Derm: Surgical incision noted at distal TMA stump appears to be well-coapted with sutures intact and no wound dehiscence noted. No periwound pallor present. No drainage noted. No purulence noted. Neuro: Protective sensation grossly diminished Ortho: s/p transmetatarsal amputation. Mild tenderness to palpation palpation surrounding surgical site. No pain upon calf squeeze. - Neurological Exam Neurological Exam: Alert, Awake, Oriented x3 - Psychiatric Exam Psychiatric exam: Normal Affect, Normal Mood Assessment and Plan - Assessment and Plan (Free Text) Assessment: 87 year old male POD#2 right transmetatarsal amputation (DOS 11/28/17) Plan: Patient seen and evaluated Discussed with attending, Dr. 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
[2017-11-30 16:25] VITALS: RESP 20
--- NOTE | 2017-11-30 17:39 | CP.PCM.PN ---
Subjective - Date & Time of Evaluation Date of Evaluation: 11/30/17 Time of Evaluation: 08:00 - Subjective Subjective: pain is less s/p TMA improving slowly Objective - Vital Signs/Intake and Output Vital Signs (last 24 hours): Temp Pulse Resp BP Pulse Ox 98.4 F 112 H 20 113/66 95 11/30/17 16:25 11/30/17 16:25 11/30/17 16:25 11/30/17 16:25 11/30/17 16:25 - Medications Medications: Current Medications Amlodipine Besylate (Norvasc) 10 mg PO DAILY [facility] Last Admin: 11/30/17 08:56 Dose: 10 mg Aspirin (Ecotrin) 81 mg PO DAILY [facility] Last Admin: 11/30/17 08:56 Dose: 81 mg Cilostazol (Pletal) 50 mg PO DAILY [facility] Last Admin: 11/30/17 08:57 Dose: 50 mg Clopidogrel Bisulfate (Plavix) 75 mg PO DAILY [facility] Last Admin: 11/30/17 08:57 Dose: 75 mg Enoxaparin Sodium (Lovenox) 30 mg SC DAILY [facility] PRN Reason: Protocol Last Admin: 11/30/17 08:57 Dose: 30 mg Ergocalciferol (Drisdol 50,000 Intl Units Cap) 1 cap PO Q7D [facility] Last Admin: 11/27/17 16:50 Dose: 1 cap Famotidine (Pepcid) 20 mg PO BID [facility] Last Admin: 11/30/17 16:00 Dose: 20 mg Ferrous Sulfate (Feosol) 325 mg PO BID [facility] Last Admin: 11/30/17 16:00 Dose: 325 mg Piperacillin Sod/Tazobactam (Sod 3.375 gm/ Sodium Chloride) 100 mls @ 100 mls/ hr IVPB Q8 [facility] PRN Reason: Protocol Last Admin: 11/30/17 15:59 Dose: 100 mls/hr Vancomycin HCl 1 gm/ Sodium (Chloride) 250 mls @ 166.667 mls/hr IVPB DAILY [facility] PRN Reason: Protocol Last Admin: 11/30/17 10:57 Dose: 166.667 mls/hr Sodium Chloride (Sodium Chloride 0.9%) 1,000 mls @ 1,000 mls/hr IV .Q1H PRN PRN Reason: Hypotension Insulin Human Lispro (Humalog) 0 units SC ACHS [facility] PRN Reason: Protocol Last Admin: 11/30/17 15:54 Dose: Not Given Lactobacillus Acidophilus (Bacid Acidophilus) 1 cap PO BID [facility] Last Admin: 11/30/17 15:59 Dose: 1 cap Lidocaine (Lidoderm) 1 ea TD DAILY [facility] Last Admin: 11/30/17 08:56 Dose: 1 ea Losartan Potassium (Cozaar) 100 mg PO DAILY [facility] Last Admin: 11/30/17 08:55 Dose: 100 mg Morphine Sulfate (Morphine) 1 mg IVP Q6 PRN PRN Reason: Pain, severe (8-10) Oxycodone/Acetaminophen (Percocet 5/325 Mg Tab) 2 tab PO Q6 PRN PRN Reason: Pain, moderate (4-7) Stop: 12/02/17 10:14 Last Admin: 11/29/17 16:13 Dose: 2 tab Oxycodone/Acetaminophen (Percocet 5/325 Mg Tab) 1 tab PO Q6 PRN PRN Reason: Pain, Mild (1-3) Stop: 12/02/17 04:09 Last Admin: 11/30/17 15:53 Dose: 1 tab Saccharomyces Boulardii (Florastor) 250 mg PO BID [facility] Last Admin: 11/30/17 16:00 Dose: 250 mg Sitagliptin Phosphate (Januvia) 50 mg PO DAILY [facility] Last Admin: 11/30/17 08:56 Dose: 50 mg Tramadol HCl (Ultram) 50 mg PO Q4 PRN PRN Reason: For pain scale 4-10 Last Admin: 11/29/17 08:50 Dose: 50 mg Zinc Acetate/Diphenhydramine (Benadryl 1% Zinc Acetate -0.1%) 1 applic TOP DAILY [facility] - Labs Labs: 11/30/17 05:45 11/30/17 05:45 PT 12.2 Seconds (9.8-13.1) 11/28/17 10:45 INR 1.1 (0.9-1.2) 11/28/17 10:45 APTT 33.6 Seconds (25.6-37.1) 11/28/17 10:45 Assessment and Plan (1) Gangrene of foot Status: Acute (2) PVD (peripheral vascular disease) with claudication Status: Chronic (3) KENNY (acute kidney injury) Status: Acute (4) Chronic osteomyelitis of right foot Status: Acute
--- NOTE | 2017-11-30 17:51 | CP.PCM.PN ---
Subjective - Date & Time of Evaluation Date of Evaluation: 11/30/17 Time of Evaluation: 12:00 - Subjective Subjective: No fever right leg pain much better Right foot dressing was changed by Podiatry denies cough, no SOB no CP no abd pain Plan for d/c to [facility] Objective - Vital Signs/Intake and Output Vital Signs (last 24 hours): Temp Pulse Resp BP Pulse Ox 98.4 F 112 H 20 113/66 95 11/30/17 16:25 11/30/17 16:25 11/30/17 16:25 11/30/17 16:25 11/30/17 16:25 - Medications Medications: Current Medications Amlodipine Besylate (Norvasc) 10 mg PO DAILY [facility] Last Admin: 11/30/17 08:56 Dose: 10 mg Aspirin (Ecotrin) 81 mg PO DAILY [facility] Last Admin: 11/30/17 08:56 Dose: 81 mg Cilostazol (Pletal) 50 mg PO DAILY [facility] Last Admin: 11/30/17 08:57 Dose: 50 mg Clopidogrel Bisulfate (Plavix) 75 mg PO DAILY [facility] Last Admin: 11/30/17 08:57 Dose: 75 mg Enoxaparin Sodium (Lovenox) 30 mg SC DAILY [facility] PRN Reason: Protocol Last Admin: 11/30/17 08:57 Dose: 30 mg Ergocalciferol (Drisdol 50,000 Intl Units Cap) 1 cap PO Q7D [facility] Last Admin: 11/27/17 16:50 Dose: 1 cap Famotidine (Pepcid) 20 mg PO BID [facility] Last Admin: 11/30/17 16:00 Dose: 20 mg Ferrous Sulfate (Feosol) 325 mg PO BID [facility] Last Admin: 11/30/17 16:00 Dose: 325 mg Piperacillin Sod/Tazobactam (Sod 3.375 gm/ Sodium Chloride) 100 mls @ 100 mls/ hr IVPB Q8 [facility] PRN Reason: Protocol Last Admin: 11/30/17 15:59 Dose: 100 mls/hr Vancomycin HCl 1 gm/ Sodium (Chloride) 250 mls @ 166.667 mls/hr IVPB DAILY [facility] PRN Reason: Protocol Last Admin: 11/30/17 10:57 Dose: 166.667 mls/hr Sodium Chloride (Sodium Chloride 0.9%) 1,000 mls @ 1,000 mls/hr IV .Q1H PRN PRN Reason: Hypotension Insulin Human Lispro (Humalog) 0 units SC ACHS [facility] PRN Reason: Protocol Last Admin: 11/30/17 15:54 Dose: Not Given Lactobacillus Acidophilus (Bacid Acidophilus) 1 cap PO BID [facility] Last Admin: 11/30/17 15:59 Dose: 1 cap Lidocaine (Lidoderm) 1 ea TD DAILY [facility] Last Admin: 11/30/17 08:56 Dose: 1 ea Losartan Potassium (Cozaar) 100 mg PO DAILY [facility] Last Admin: 11/30/17 08:55 Dose: 100 mg Morphine Sulfate (Morphine) 1 mg IVP Q6 PRN PRN Reason: Pain, severe (8-10) Oxycodone/Acetaminophen (Percocet 5/325 Mg Tab) 2 tab PO Q6 PRN PRN Reason: Pain, moderate (4-7) Stop: 12/02/17 10:14 Last Admin: 11/29/17 16:13 Dose: 2 tab Oxycodone/Acetaminophen (Percocet 5/325 Mg Tab) 1 tab PO Q6 PRN PRN Reason: Pain, Mild (1-3) Stop: 12/02/17 04:09 Last Admin: 11/30/17 15:53 Dose: 1 tab Saccharomyces Boulardii (Florastor) 250 mg PO BID [facility] Last Admin: 11/30/17 16:00 Dose: 250 mg Sitagliptin Phosphate (Januvia) 50 mg PO DAILY [facility] Last Admin: 11/30/17 08:56 Dose: 50 mg Tramadol HCl (Ultram) 50 mg PO Q4 PRN PRN Reason: For pain scale 4-10 Last Admin: 11/29/17 08:50 Dose: 50 mg Zinc Acetate/Diphenhydramine (Benadryl 1% Zinc Acetate -0.1%) 1 applic TOP DAILY [facility] - Labs Labs: 11/30/17 05:45 11/30/17 05:45 PT 12.2 Seconds (9.8-13.1) 11/28/17 10:45 INR 1.1 (0.9-1.2) 11/28/17 10:45 APTT 33.6 Seconds (25.6-37.1) 11/28/17 10:45 - Constitutional Appears: No Acute Distress - Head Exam Head Exam: NORMAL INSPECTION, NORMOCEPHALIC - Eye Exam Eye Exam: EOMI, Normal appearance Pupil Exam: NORMAL ACCOMODATION - ENT Exam ENT Exam: Mucous Membranes Moist, Normal External Ear Exam - Neck Exam Neck Exam: Full ROM. absent: Meningismus - Respiratory Exam Respiratory Exam: NORMAL BREATHING PATTERN. absent: Rales, Respiratory Distress - Cardiovascular Exam Cardiovascular Exam: REGULAR RHYTHM, +S1, +S2 - GI/Abdominal Exam GI & Abdominal Exam: Soft, Normal Bowel Sounds. absent: Tenderness - Extremities Exam Extremities Exam: Normal Capillary Refill. absent: Calf Tenderness Additional comments: bilat TMA, right foot with dressing - Back Exam Back Exam: Full ROM. absent: CVA tenderness (L), CVA tenderness (R) - Neurological Exam Neurological Exam: Alert, Awake, CN II-XII Intact, Oriented x3 Neuro motor strength exam: Left Upper Extremity: 5, Right Upper Extremity: 5, Left Lower Extremity: 5, Right Lower Extremity: 5 - Psychiatric Exam Psychiatric exam: Normal Affect, Normal Mood - Skin Skin Exam: Dry, Normal Color, Warm Assessment and Plan (1) Gangrene of foot Status: Acute (2) PVD (peripheral vascular disease) with claudication Status: Chronic (3) DM type 2 (diabetes mellitus, type 2) Status: Chronic (4) HTN (hypertension) Status: Chronic (5) Hyperlipidemia Status: Chronic (6) DVT prophylaxis Status: Acute - Assessment and Plan (Free Text) Assessment: 87 y/o male with PMH of HTN, HLD, DM, PVD s/p L TMA and R 1st and 2nd toe amputations, presented to the ED from Dr. Taylor's office because of worsening sharp R foot pain and gangrene to area of amputation.Patient admitted for gangrenous right foot . ID , podiatry and interventional cardiology consulted . Wound cultures reported positive of Stenotrophomonas & Corynebacterium and he was started on Vanco and Zosyn s/p MEDICAL ASST/Atherectomy of long SFA done by Dr Jiménez at [facility] 11/22 s/p Right TMA 11/28 1. PVD with Gangrenous Foot, right s/p MEDICAL ASST/Atherectomy long SFA and right TMA podiatry, ID and interventional cardiology consulted s/p right TMA day 1 resume ASA, Plavix, ARB , Cilostazol and Statin wound C/s: Stenotrophomonas & Corynebacterium cont IV Vanco and Zosyn for 7 more days post op as per ID pain control SW consulted for transfer to [facility] 2. Hypertension labile continue Amlodipine and Losartan 3. DM type II controlled continue Januvia, accuchecks and ISS 4. Azotemia, dehydration resolved with IVF hydration 5. Anemia of chronic Dis Hgb dropped to 7.8 Pt was transfused 1 unit PRBC yesterday on Ferrous sulfate 6. DVT proph lovenox
--- NOTE | 2017-11-30 17:58 | CP.PCM.PN ---
Subjective - Date & Time of Evaluation Date of Evaluation: 11/30/17 Time of Evaluation: 17:58 - Subjective Subjective: s/p TMA POD # 1 good bleeding noted post op pain controlled now Objective - Vital Signs/Intake and Output Vital Signs (last 24 hours): Temp Pulse Resp BP Pulse Ox 98.4 F 112 H 20 113/66 95 11/30/17 16:25 11/30/17 16:25 11/30/17 16:25 11/30/17 16:25 11/30/17 16:25 - Medications Medications: Current Medications Amlodipine Besylate (Norvasc) 10 mg PO DAILY [facility] Last Admin: 11/30/17 08:56 Dose: 10 mg Aspirin (Ecotrin) 81 mg PO DAILY [facility] Last Admin: 11/30/17 08:56 Dose: 81 mg Cilostazol (Pletal) 50 mg PO DAILY [facility] Last Admin: 11/30/17 08:57 Dose: 50 mg Clopidogrel Bisulfate (Plavix) 75 mg PO DAILY [facility] Last Admin: 11/30/17 08:57 Dose: 75 mg Enoxaparin Sodium (Lovenox) 30 mg SC DAILY [facility] PRN Reason: Protocol Last Admin: 11/30/17 08:57 Dose: 30 mg Ergocalciferol (Drisdol 50,000 Intl Units Cap) 1 cap PO Q7D [facility] Last Admin: 11/27/17 16:50 Dose: 1 cap Famotidine (Pepcid) 20 mg PO BID [facility] Last Admin: 11/30/17 16:00 Dose: 20 mg Ferrous Sulfate (Feosol) 325 mg PO BID [facility] Last Admin: 11/30/17 16:00 Dose: 325 mg Piperacillin Sod/Tazobactam (Sod 3.375 gm/ Sodium Chloride) 100 mls @ 100 mls/ hr IVPB Q8 [facility] PRN Reason: Protocol Last Admin: 11/30/17 15:59 Dose: 100 mls/hr Vancomycin HCl 1 gm/ Sodium (Chloride) 250 mls @ 166.667 mls/hr IVPB DAILY [facility] PRN Reason: Protocol Last Admin: 11/30/17 10:57 Dose: 166.667 mls/hr Sodium Chloride (Sodium Chloride 0.9%) 1,000 mls @ 1,000 mls/hr IV .Q1H PRN PRN Reason: Hypotension Insulin Human Lispro (Humalog) 0 units SC ACHS [facility] PRN Reason: Protocol Last Admin: 11/30/17 15:54 Dose: Not Given Lactobacillus Acidophilus (Bacid Acidophilus) 1 cap PO BID [facility] Last Admin: 11/30/17 15:59 Dose: 1 cap Lidocaine (Lidoderm) 1 ea TD DAILY [facility] Last Admin: 11/30/17 08:56 Dose: 1 ea Losartan Potassium (Cozaar) 100 mg PO DAILY [facility] Last Admin: 11/30/17 08:55 Dose: 100 mg Morphine Sulfate (Morphine) 1 mg IVP Q6 PRN PRN Reason: Pain, severe (8-10) Oxycodone/Acetaminophen (Percocet 5/325 Mg Tab) 2 tab PO Q6 PRN PRN Reason: Pain, moderate (4-7) Stop: 12/02/17 10:14 Last Admin: 11/29/17 16:13 Dose: 2 tab Oxycodone/Acetaminophen (Percocet 5/325 Mg Tab) 1 tab PO Q6 PRN PRN Reason: Pain, Mild (1-3) Stop: 12/02/17 04:09 Last Admin: 11/30/17 15:53 Dose: 1 tab Saccharomyces Boulardii (Florastor) 250 mg PO BID [facility] Last Admin: 11/30/17 16:00 Dose: 250 mg Sitagliptin Phosphate (Januvia) 50 mg PO DAILY [facility] Last Admin: 11/30/17 08:56 Dose: 50 mg Tramadol HCl (Ultram) 50 mg PO Q4 PRN PRN Reason: For pain scale 4-10 Last Admin: 11/29/17 08:50 Dose: 50 mg Zinc Acetate/Diphenhydramine (Benadryl 1% Zinc Acetate -0.1%) 1 applic TOP DAILY [facility] - Labs Labs: 11/30/17 05:45 11/30/17 05:45 PT 12.2 Seconds (9.8-13.1) 11/28/17 10:45 INR 1.1 (0.9-1.2) 11/28/17 10:45 APTT 33.6 Seconds (25.6-37.1) 11/28/17 10:45 - Constitutional Appears: Well - Head Exam Head Exam: ATRAUMATIC, NORMAL INSPECTION, NORMOCEPHALIC - Eye Exam Eye Exam: EOMI, Normal appearance, PERRL Pupil Exam: NORMAL ACCOMODATION, PERRL - ENT Exam ENT Exam: Mucous Membranes Moist, Normal Exam - Neck Exam Neck Exam: Full ROM, Normal Inspection. absent: Lymphadenopathy - Respiratory Exam Respiratory Exam: Clear to Ausculation Bilateral, NORMAL BREATHING PATTERN - Cardiovascular Exam Cardiovascular Exam: REGULAR RHYTHM, +S1, +S2. absent: Murmur - GI/Abdominal Exam GI & Abdominal Exam: Soft, Normal Bowel Sounds. absent: Tenderness - Extremities Exam Extremities Exam: Full ROM, Normal Capillary Refill, Normal Inspection. absent : Joint Swelling, Pedal Edema - Back Exam Back Exam: NORMAL INSPECTION - Neurological Exam Neurological Exam: Alert, Awake, CN II-XII Intact, Oriented x3 - Psychiatric Exam Psychiatric exam: Normal Affect, Normal Mood - Skin Skin Exam: Dry, Intact, Normal Color, Warm Assessment and Plan (1) Gangrene of foot Status: Acute (2) PVD (peripheral vascular disease) with claudication Status: Chronic (3) Gangrene of toe of right foot Status: Acute (4) HTN (hypertension) Status: Chronic (5) History of hyperlipidemia Status: Chronic
[2017-12-01] MEDS ORDERED: Diphenhydramine 1% CREAM TOP SCH (06:00)
--- NOTE | 2017-12-01 06:27 | CP.PCM.PN ---
Subjective - Date & Time of Evaluation Date of Evaluation: 12/01/17 Time of Evaluation: 06:27 - Subjective Subjective: Podiatry - Dr. Burrell 87 year old male patient seen and evaluated at bedside POD#3 right foot transmetatarsal amputation. Patient hemodynamically stable, NAD. Per nursing, patient took off dressing after he soiled himself in bed; was reapplied by nursing. Patient complains of occasional itching around amputation site. Admits pain continues to decrease, well-controlled. Denies N/V/F/D/C/SOB/GUAJARDO/dizziness. Objective - Vital Signs/Intake and Output Vital Signs (last 24 hours): Temp Pulse Resp BP Pulse Ox 98.9 F 92 H 20 120/62 96 11/30/17 23:30 11/30/17 23:30 11/30/17 23:30 11/30/17 23:30 11/30/17 23:30 - Medications Medications: Current Medications Amlodipine Besylate (Norvasc) 10 mg PO DAILY [facility] Last Admin: 11/30/17 08:56 Dose: 10 mg Aspirin (Ecotrin) 81 mg PO DAILY [facility] Last Admin: 11/30/17 08:56 Dose: 81 mg Cilostazol (Pletal) 50 mg PO DAILY [facility] Last Admin: 11/30/17 08:57 Dose: 50 mg Clopidogrel Bisulfate (Plavix) 75 mg PO DAILY [facility] Last Admin: 11/30/17 08:57 Dose: 75 mg Enoxaparin Sodium (Lovenox) 30 mg SC DAILY [facility] PRN Reason: Protocol Last Admin: 11/30/17 08:57 Dose: 30 mg Ergocalciferol (Drisdol 50,000 Intl Units Cap) 1 cap PO Q7D [facility] Last Admin: 11/27/17 16:50 Dose: 1 cap Famotidine (Pepcid) 20 mg PO BID [facility] Last Admin: 11/30/17 16:00 Dose: 20 mg Ferrous Sulfate (Feosol) 325 mg PO BID [facility] Last Admin: 11/30/17 16:00 Dose: 325 mg Piperacillin Sod/Tazobactam (Sod 3.375 gm/ Sodium Chloride) 100 mls @ 100 mls/ hr IVPB Q8 [facility] PRN Reason: Protocol Last Admin: 11/30/17 23:59 Dose: 100 mls/hr Vancomycin HCl 1 gm/ Sodium (Chloride) 250 mls @ 166.667 mls/hr IVPB DAILY [facility] PRN Reason: Protocol Last Admin: 11/30/17 10:57 Dose: 166.667 mls/hr Sodium Chloride (Sodium Chloride 0.9%) 1,000 mls @ 1,000 mls/hr IV .Q1H PRN PRN Reason: Hypotension Insulin Human Lispro (Humalog) 0 units SC ACHS [facility] PRN Reason: Protocol Last Admin: 11/30/17 22:06 Dose: Not Given Lactobacillus Acidophilus (Bacid Acidophilus) 1 cap PO BID [facility] Last Admin: 11/30/17 15:59 Dose: 1 cap Lidocaine (Lidoderm) 1 ea TD DAILY [facility] Last Admin: 11/30/17 08:56 Dose: 1 ea Losartan Potassium (Cozaar) 100 mg PO DAILY [facility] Last Admin: 11/30/17 08:55 Dose: 100 mg Morphine Sulfate (Morphine) 1 mg IVP Q6 PRN PRN Reason: Pain, severe (8-10) Oxycodone/Acetaminophen (Percocet 5/325 Mg Tab) 2 tab PO Q6 PRN PRN Reason: Pain, moderate (4-7) Stop: 12/02/17 10:14 Last Admin: 11/29/17 16:13 Dose: 2 tab Oxycodone/Acetaminophen (Percocet 5/325 Mg Tab) 1 tab PO Q6 PRN PRN Reason: Pain, Mild (1-3) Stop: 12/02/17 04:09 Last Admin: 11/30/17 15:53 Dose: 1 tab Saccharomyces Boulardii (Florastor) 250 mg PO BID [facility] Last Admin: 11/30/17 16:00 Dose: 250 mg Sitagliptin Phosphate (Januvia) 50 mg PO DAILY [facility] Last Admin: 11/30/17 08:56 Dose: 50 mg Tramadol HCl (Ultram) 50 mg PO Q4 PRN PRN Reason: For pain scale 4-10 Last Admin: 11/29/17 08:50 Dose: 50 mg Zinc Acetate/Diphenhydramine (Benadryl 1% Zinc Acetate -0.1%) 1 applic TOP DAILY [facility] - Labs Labs: 11/30/17 05:45 11/30/17 05:45 PT 12.2 Seconds (9.8-13.1) 11/28/17 10:45 INR 1.1 (0.9-1.2) 11/28/17 10:45 APTT 33.6 Seconds (25.6-37.1) 11/28/17 10:45 - Constitutional Appears: Well, Non-toxic, No Acute Distress - Extremities Exam Additional comments: Right LE focused exam Dressing to RLE clean/dry/intact with no strikethrough noted. Vasc: DP/PT pulses non palpable. Temp gradient warm to warm from proximal to distal. Nonpitting edema noted proximally to surgical site. CFT WNL. Derm: Surgical incision noted at distal TMA stump appears to be well-coapted with sutures intact and no wound dehiscence noted. No periwound pallor present. No drainage noted. No purulence noted. Neuro: Protective sensation grossly diminished Ortho: s/p transmetatarsal amputation. Mild tenderness to palpation palpation surrounding surgical site. No pain upon calf squeeze. - Neurological Exam Neurological Exam: Alert, Awake, Oriented x3 - Psychiatric Exam Psychiatric exam: Normal Affect, Normal Mood Assessment and Plan - Assessment and Plan (Free Text) Assessment: 87 year old male POD#3 right transmetatarsal amputation (DOS 11/28/17) Plan: Patient seen and evaluated Discussed with attending, Dr. Nye Afebrile, WBC 10.0 Vascular: s/p VALIDATION ARCHITECT/atherectomy of SFA calcified lesion with gradient of 40 mm Hg Continue Aspirin, Plavix, Lovenox ID on board - d/c Zosyn, continue Vancomycin Right foot wound culture - stenotrophomonas maltophilia, corynebacterium species f/u pathology report Continue multipodus boots at all times in bed Continue local wound care - xeroform, DSD Topical benadryl for pruritus surrounding flaps Pain control - Percocet 1-2 tabs, Morphine 1mg IV NWB RLE for now OK to d/c per podiatry Patient to follow up with Dr. Burrell in wound care center upon discharge. -Keep dressing clean/dry/intact until first post-op visit Podiatry will continue to follow
[2017-12-01] MEDS: Insulin Lispro (humaLOG) 100 Units/ml Inj SC SCH ×3 (07:47→17:35)
[2017-12-01 09:00] VITALS: O2SAT 99
[2017-12-01] MEDS: Lactobacillus Acidophilus 500 MU Cap PO SCH ×2 (09:34→16:02)
[2017-12-01] MEDS: Saccharomyces Boulardi 250 mg Cap PO SCH ×2 (09:38→16:02)
[2017-12-01] MEDS: Lidocaine 5% Patch TD SCH (09:38)
[2017-12-01] MEDS: Enoxaparin 30 mg Syringe SC SCH (09:40)
[2017-12-01] MEDS: Cilostazol 50 mg Tab UD PO SCH (09:41)
[2017-12-01] MEDS: Piperacillin/Tazobact 3.375 GM in Sodium Chloride 0.9% 100 ML IVPB SCH (09:46)
[2017-12-01 10:12] LABS: HEMOGLOBIN 9.3 g/dL (12.0-18.0); MEAN CELL VOLUME 86.9 fl (80.0-94.0); MEAN CORPUSCULAR HEMOGLOBIN 28.8 pg (27.0-31.0); MEAN CORPUSCULAR HGB CONC 33.1 g/dL (33.0-37.0); RBC 3.24 Mil/uL (4.40-5.90); RED CELL DISTRIBUTION WIDTH 15.2 % (11.5-14.5)
--- NOTE | 2017-12-01 12:51 | CP.PCM.PN ---
Subjective - Date & Time of Evaluation Date of Evaluation: 12/01/17 Time of Evaluation: 07:00 - Subjective Subjective: pain is less s/p TMA improving slowly Objective - Vital Signs/Intake and Output Vital Signs (last 24 hours): Temp Pulse Resp BP Pulse Ox 98.8 F 105 H 20 145/82 99 12/01/17 09:00 12/01/17 09:40 12/01/17 09:00 12/01/17 09:40 12/01/17 09:00 - Medications Medications: Current Medications Amlodipine Besylate (Norvasc) 10 mg PO DAILY [facility] Last Admin: 12/01/17 09:40 Dose: 10 mg Aspirin (Ecotrin) 81 mg PO DAILY [facility] Last Admin: 12/01/17 09:37 Dose: 81 mg Cilostazol (Pletal) 50 mg PO DAILY [facility] Last Admin: 12/01/17 09:41 Dose: 50 mg Clopidogrel Bisulfate (Plavix) 75 mg PO DAILY [facility] Last Admin: 12/01/17 09:41 Dose: 75 mg Enoxaparin Sodium (Lovenox) 30 mg SC DAILY [facility] PRN Reason: Protocol Last Admin: 12/01/17 09:40 Dose: 30 mg Ergocalciferol (Drisdol 50,000 Intl Units Cap) 1 cap PO Q7D [facility] Last Admin: 11/27/17 16:50 Dose: 1 cap Famotidine (Pepcid) 20 mg PO BID [facility] Last Admin: 12/01/17 09:41 Dose: 20 mg Ferrous Sulfate (Feosol) 325 mg PO BID [facility] Last Admin: 12/01/17 09:38 Dose: 325 mg Piperacillin Sod/Tazobactam (Sod 3.375 gm/ Sodium Chloride) 100 mls @ 100 mls/ hr IVPB Q8 [facility] PRN Reason: Protocol Last Admin: 12/01/17 09:46 Dose: 100 mls/hr Vancomycin HCl 1 gm/ Sodium (Chloride) 250 mls @ 166.667 mls/hr IVPB DAILY [facility] PRN Reason: Protocol Last Admin: 12/01/17 09:42 Dose: 166.667 mls/hr Sodium Chloride (Sodium Chloride 0.9%) 1,000 mls @ 1,000 mls/hr IV .Q1H PRN PRN Reason: Hypotension Insulin Human Lispro (Humalog) 0 units SC ACHS [facility] PRN Reason: Protocol Last Admin: 12/01/17 07:47 Dose: Not Given Lactobacillus Acidophilus (Bacid Acidophilus) 1 cap PO BID [facility] Last Admin: 12/01/17 09:34 Dose: 1 cap Lidocaine (Lidoderm) 1 ea TD DAILY [facility] Last Admin: 12/01/17 09:38 Dose: 1 ea Losartan Potassium (Cozaar) 100 mg PO DAILY [facility] Last Admin: 12/01/17 09:36 Dose: 100 mg Metronidazole (Flagyl) 500 mg PO Q8 [facility] PRN Reason: Protocol Morphine Sulfate (Morphine) 1 mg IVP Q6 PRN PRN Reason: Pain, severe (8-10) Oxycodone/Acetaminophen (Percocet 5/325 Mg Tab) 2 tab PO Q6 PRN PRN Reason: Pain, moderate (4-7) Stop: 12/02/17 10:14 Last Admin: 11/29/17 16:13 Dose: 2 tab Oxycodone/Acetaminophen (Percocet 5/325 Mg Tab) 1 tab PO Q6 PRN PRN Reason: Pain, Mild (1-3) Stop: 12/02/17 04:09 Last Admin: 11/30/17 15:53 Dose: 1 tab Saccharomyces Boulardii (Florastor) 250 mg PO BID [facility] Last Admin: 12/01/17 09:38 Dose: 250 mg Sitagliptin Phosphate (Januvia) 50 mg PO DAILY [facility] Last Admin: 12/01/17 09:38 Dose: 50 mg Tramadol HCl (Ultram) 50 mg PO Q4 PRN PRN Reason: For pain scale 4-10 Last Admin: 12/01/17 10:08 Dose: 50 mg Zinc Acetate/Diphenhydramine (Benadryl 1% Zinc Acetate -0.1%) 1 applic TOP DAILY [facility] Last Admin: 12/01/17 09:34 Dose: 1 u - Labs Labs: 12/01/17 09:40 11/30/17 05:45 PT 12.2 Seconds (9.8-13.1) 11/28/17 10:45 INR 1.1 (0.9-1.2) 11/28/17 10:45 APTT 33.6 Seconds (25.6-37.1) 11/28/17 10:45 - Constitutional Appears: Well - Head Exam Head Exam: ATRAUMATIC, NORMAL INSPECTION, NORMOCEPHALIC - Eye Exam Eye Exam: EOMI, Normal appearance, PERRL Pupil Exam: NORMAL ACCOMODATION, PERRL - ENT Exam ENT Exam: Mucous Membranes Moist, Normal Exam - Neck Exam Neck Exam: Full ROM, Normal Inspection. absent: Lymphadenopathy - Respiratory Exam Respiratory Exam: Clear to Ausculation Bilateral, NORMAL BREATHING PATTERN - Cardiovascular Exam Cardiovascular Exam: REGULAR RHYTHM, +S1, +S2. absent: Murmur - GI/Abdominal Exam GI & Abdominal Exam: Soft, Normal Bowel Sounds. absent: Tenderness - Rectal Exam Rectal Exam: NORMAL INSPECTION - Exam Exam: Circumcision, NORMAL INSPECTION - Extremities Exam Extremities Exam: Full ROM, Normal Capillary Refill, Normal Inspection. absent : Joint Swelling, Pedal Edema - Back Exam Back Exam: absent: CVA tenderness (L), CVA tenderness (R), NORMAL INSPECTION - Neurological Exam Neurological Exam: Alert, Awake, CN II-XII Intact, Oriented x3 - Psychiatric Exam Psychiatric exam: Normal Affect, Normal Mood - Skin Skin Exam: Dry, Intact, Normal Color, Warm Assessment and Plan (1) Gangrene of foot Status: Acute (2) PVD (peripheral vascular disease) with claudication Status: Chronic (3) KENNY (acute kidney injury) Status: Acute (4) Chronic osteomyelitis of right foot Status: Acute - Assessment and Plan (Free Text) Assessment: pain is less s/p TMA improving slowly
[2017-12-01] MEDS ORDERED: Piperacillin/Tazobact 3.375 GM in Sodium Chloride 0.9% 100 ML IVPB SCH (13:15)
--- NOTE | 2017-12-01 15:28 | CP.PCM.DIS ---
Provider - Provider Date of Admission: 11/20/17 12:28 Attending physician: Karma Petit DO Primary care physician: Dr Fitzgerald Consults: Podiatry: Dr Nye Cardio: Dr Jiménez ID: Dr Buck Time Spent in preparation of Discharge (in minutes): 40 Diagnosis - Discharge Diagnosis (1) Gangrene of foot Status: Acute (2) PVD (peripheral vascular disease) with claudication Status: Chronic (3) DM type 2 (diabetes mellitus, type 2) Status: Chronic (4) HTN (hypertension) Status: Chronic (5) Hyperlipidemia Status: Chronic (6) DVT prophylaxis Status: Acute Hospital Course - Lab Results Lab Results: Micro Results 11/20/17 15:00 Blood-Venous Blood Culture - Final NO GROWTH AFTER 5 DAYS 11/20/17 15:00 Blood-Venous Gram Stain - Final TEST NOT PERFORMED 11/20/17 18:00 Abscess - Foot-Right Gram Stain - Final 11/20/17 18:00 Abscess - Foot-Right Wound Culture - Final Stenotrophomonas Maltophilia Corynebacterium Species Most Recent Lab Values WBC 10.0 K/uL (4.8-10.8) 12/01/17 09:40 RBC 3.24 Mil/uL (4.40-5.90) L 12/01/17 09:40 Hgb 9.3 g/dL (12.0-18.0) L 12/01/17 09:40 Hct 28.2 % (35.0-51.0) L 12/01/17 09:40 MCV 86.9 fl (80.0-94.0) 12/01/17 09:40 MCH 28.8 pg (27.0-31.0) 12/01/17 09:40 MCHC 33.1 g/dL (33.0-37.0) 12/01/17 09:40 RDW 15.2 % (11.5-14.5) H 12/01/17 09:40 Plt Count 409 K/uL (130-400) H 12/01/17 09:40 MPV 8.2 fl (7.2-11.7) 11/27/17 06:10 Neut % (Auto) 76.2 % (50.0-75.0) H 11/27/17 06:10 Lymph % (Auto) 12.3 % (20.0-40.0) L 11/27/17 06:10 [place] % (Auto) 8.6 % (0.0-10.0) 11/27/17 06:10 Eos % (Auto) 1.9 % (0.0-4.0) 11/27/17 06:10 Baso % (Auto) 1.0 % (0.0-2.0) 11/27/17 06:10 Neut # (Auto) 5.1 K/uL (1.8-7.0) 11/27/17 06:10 Lymph # (Auto) 0.8 K/uL (1.0-4.3) L 11/27/17 06:10 [place] # (Auto) 0.6 K/uL (0.0-0.8) 11/27/17 06:10 Eos # (Auto) 0.1 K/uL (0.0-0.7) 11/27/17 06:10 Baso # (Auto) 0.1 K/uL (0.0-0.2) 11/27/17 06:10 Neutrophils % (Manual) 89 % (42-75) H 11/20/17 11:00 Lymphocytes % (Manual) 4 % (20-50) L 11/20/17 11:00 Monocytes % (Manual) 5 % (0-10) 11/20/17 11:00 Eosinophils % (Manual) 2 % (0-7) 11/20/17 11:00 Platelet Estimate Increased (NORMAL) H 11/20/17 11:00 Hypochromasia (manual) Slight 11/20/17 11:00 Tear Drop Cells Slight 11/20/17 11:00 Ovalocytes Slight 11/20/17 11:00 PT 12.2 Seconds (9.8-13.1) 11/28/17 10:45 INR 1.1 (0.9-1.2) 11/28/17 10:45 APTT 33.6 Seconds (25.6-37.1) 11/28/17 10:45 Sodium 140 mmol/l (132-148) 11/30/17 05:45 Potassium 4.1 MMOL/L (3.6-5.0) 11/30/17 05:45 Chloride 103 mmol/L (98-107) 05/24/18 05:45 Carbon Dioxide 24 mmol/L (22-30) 11/30/17 05:45 Anion Gap 17 (10-20) 11/30/17 05:45 BUN 17 mg/dl (9-20) 11/30/17 05:45 Creatinine 1.3 mg/dl (0.8-1.5) 11/30/17 05:45 Est GFR ( Amer) > 60 11/30/17 05:45 Est GFR (Non-Af Amer) 52 11/30/17 05:45 POC Glucose (mg/dL) 179 mg/dL (65-110) H 12/01/17 11:18 Random Glucose 120 mg/dL (75-110) H 11/30/17 05:45 Calcium 9.3 mg/dL (8.4-10.2) 11/30/17 05:45 Total Bilirubin 0.4 mg/dl (0.2-1.3) 11/27/17 06:10 AST 44 U/L (17-59) 11/27/17 06:10 ALT 17 U/L (21-72) L 11/27/17 06:10 Alkaline Phosphatase 78 U/L (38-126) 11/27/17 06:10 Troponin I < 0.0120 ng/mL (0.00-0.120) 11/20/17 11:00 Total Protein 8.0 G/DL (6.3-8.2) 11/27/17 06:10 Albumin 3.6 g/dL (3.5-5.0) 11/27/17 06:10 Globulin 4.4 gm/dL (2.2-3.9) H 11/27/17 06:10 Albumin/Globulin Ratio 0.8 (1.0-2.1) L 11/27/17 06:10 Procalcitonin < 0.05 NG/ML (0.19-0.49) L 11/20/17 15:00 Urine Color Yellow (YELLOW) 11/20/17 15:30 Urine Clarity Clear (Clear) 11/20/17 15:30 Urine pH 5.0 (5.0-8.0) 11/20/17 15:30 Ur Specific [place] 1.014 (1.003-1.030) 11/20/17 15:30 Urine Protein 30 mg/dL (NEGATIVE) 11/20/17 15:30 Urine Glucose (UA) Neg mg/dL (Normal) 11/20/17 15:30 Urine Ketones Negative mg/dL (NEGATIVE) 11/20/17 15:30 Urine Blood Negative (NEGATIVE) 11/20/17 15:30 Urine Nitrate Negative (NEGATIVE) 11/20/17 15:30 Urine Bilirubin Negative (NEGATIVE) 11/20/17 15:30 Urine Urobilinogen 0.2-1.0 mg/dL (0.2-1.0) 11/20/17 15:30 Ur Leukocyte Esterase Neg [place]/uL (Negative) 11/20/17 15:30 Urine RBC (Auto) 2 /hpf (0-3) 11/20/17 15:30 Urine Microscopic WBC < 1 /hpf (0-5) 11/20/17 15:30 Ur Squamous Epith Cells < 1 /hpf (0-5) 11/20/17 15:30 Vancomycin Trough 17.6 ug/mL (5.0-10.0) H 12/01/17 09:40 Random Vancomycin 14.3 ug/mL 11/23/17 07:00 C. 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 Nye's office because of worsening sharp R foot pain and gangrene to area of amputation. Patient was admitted for gangrenous right foot . ID , Podiatry and Interventional cardiology consulted . Wound cultures reported positive of Stenotrophomonas & Corynebacterium and he was started on Vanco and Zosyn s/p SHOP FITTER/Atherectomy of long SFA done by Dr Jiménez at [facility] on 11/22 s/p Right TMA 11/[address] Nye. 1. PVD with Gangrenous Foot, right s/p SHOP FITTER/Atherectomy long SFA and right TMA podiatry, ID and interventional cardiology consulted s/p right TMA done by Dr Nye cont ASA, Plavix, ARB , Cilostazol and Statin wound C/s: Stenotrophomonas & Corynebacterium cont IV Vanco and Zosyn - cont for 4 more days in the [facility] pain control with Pewrcoet, Ultram d/c pt to [facility] for PT and IV abx infusion 2. Hypertension labile continue Amlodipine and Losartan 3. DM type II controlled continue Januvia, accuchecks and ISS 4. Azotemia, dehydration resolved with IVF hydration 5. Anemia of chronic Dis Hgb dropped to 7.8 Pt was transfused 1 unit PRBC on Ferrous sulfate 6. DVT proph lovenox Discharge Exam - Head Exam Head Exam: ATRAUMATIC, NORMAL INSPECTION, NORMOCEPHALIC - Eye Exam Eye Exam: EOMI, Normal appearance Pupil Exam: NORMAL ACCOMODATION - ENT Exam ENT Exam: Mucous Membranes Moist, Normal External Ear Exam - Neck Exam Neck exam: Full Rom - Respiratory Exam Respiratory Exam: NORMAL BREATHING PATTERN. absent: Respiratory Distress - Cardiovascular Exam Cardiovascular Exam: REGULAR RHYTHM, +S1, +S2 - GI/Abdominal Exam GI & Abdominal Exam: Normal Bowel Sounds, Soft. absent: Tenderness - Extremities Exam Additional comments: s/p bilateral TMA Right foot wound well coaptated , with dressing - Back Exam Back exam: FULL ROM. absent: CVA tenderness (L), CVA tenderness (R) - Neurological Exam Neurological exam: Alert, CN II-XII Intact, Oriented x3, Reflexes Normal - Psychiatric Exam Psychiatric exam: Normal Affect, Normal Mood - Skin Skin Exam: Dry, Normal Color, Warm Discharge Plan - Discharge Medications Prescriptions: Piperacillin/Tazobact 3.375 gm [Zosyn 3.375 in NS 100ml] 3.375 gm IVPB Q8 4 Days bag Vancomycin/0.9 % Sod Chloride [Vanco 750 mg/250 ml-0.9% NaCl] 750 mg IV DAILY 4 Days plast..bag - Follow Up Plan Condition: STABLE Disposition: TRANSF TO SNF Instructions: Gangrene (DC), Amputation of the Foot or Toe (DC) Additional Instructions: d/c to [facility] ff up with Dr Nye next wk Pt to be followed by Dr Fitzgerald in [facility] ff up with Dr Jiménez in 2 wks Keep multipodus boots at all times in bed Continue local wound care - xeroform, DSD Topical benadryl for pruritus surrounding flaps NWB RLE for now Keep dressing clean/dry/intact until first post-op visit Referrals: Gustavo Nye DPM [Staff Provider] - Mansoor Buck MD [Staff Provider] - Lasha Fitzgerald MD [Family Provider] - Presley Jiménez MD [Staff Provider] -
[2017-12-01 16:24] VITALS: BP 109/63; PULSE 94; TEMP 98.1
== END 2017-12-01 19:44 | DRG 271 ==
LOC: H.ER 09:16 → H.ERHOLD 12:28 → H.MEDSURG1 19:05
PROVIDERS: ADMIT Student in an Organized Health Care Education/Training Program; ATTEND Student in an Organized Health Care Education/Training Program
PROC: 04CK3ZZ Extirpation of Matter from Right Femoral Artery, Percutaneous Approach (ICD-10-PCS; 2017-11-22)
PROC: 047K3ZZ Dilation of Right Femoral Artery, Percutaneous Approach (ICD-10-PCS; 2017-11-22)
PROC: B40DYZZ Plain Radiography of Aorta and Bilateral Lower Extremity Arteries using Other Contrast (ICD-10-PCS; 2017-11-22)
PROC: 0Y6M0ZD Detachment at Right Foot, Partial 4th Ray, Open Approach (ICD-10-PCS; 2017-11-28)
PROC: 0Y6M0ZC Detachment at Right Foot, Partial 3rd Ray, Open Approach (ICD-10-PCS; principal; 2017-11-28 15:00)
PROC: 30233N1 Transfusion of Nonautologous Red Blood Cells into Peripheral Vein, Percutaneous Approach (ICD-10-PCS; 2017-11-29)
DX: E11.52 Type 2 diabetes mellitus with diabetic peripheral angiopathy with gangrene (principal); M86.671 Other chronic osteomyelitis, right ankle and foot; N17.9 Acute kidney failure, unspecified; I96 Gangrene, not elsewhere classified; R64 Cachexia; Z68.1 Body mass index [BMI] 19.9 or less, adult; E11.69 Type 2 diabetes mellitus with other specified complication; I11.0 Hypertensive heart disease with heart failure; E78.00 Pure hypercholesterolemia, unspecified; E78.5 Hyperlipidemia, unspecified; E87.5 Hyperkalemia; I50.9 Heart failure, unspecified; E86.0 Dehydration; Z87.891 Personal history of nicotine dependence; R79.89 Other specified abnormal findings of blood chemistry; Z89.421 Acquired absence of other right toe(s); Z89.432 Acquired absence of left foot; D63.8 Anemia in other chronic diseases classified elsewhere; B96.89 Other specified bacterial agents as the cause of diseases classified elsewhere; I70.218 Atherosclerosis of native arteries of extremities with intermittent claudication, other extremity; L29.9 Pruritus, unspecified